=== PATIENT | female | born 1985 | race Caucasian/White ===

== ENCOUNTER 2017-10-09 13:33 | Emergency (ER) | payer MEDICARE, MEDICAID ==
[~2017-10-09] VITALS: Ht 154.9 cm; Wt 130.0 kg
[~2017-10-09 13:33] MED LIST: ALBU18HF2 INH; ALBU8.5H4 IH; BENZ-38 PO; CETI-136 PO; EFF37.5XRC PO; GUAI120015 PO; LURA20TA PO; LURA60TA2 PO; ONDA4TAB12 PO; PANT40TA4 PO; TOPI25TA15 PO
[2017-10-09] MEDS ORDERED: ipratropium/albuterol 3ml nebule NEB ONE (16:20)
[2017-10-09] MEDS ORDERED: predniSONE 20 mg tablet PO ONE (16:40)
[2017-10-09 17:08] LABS: CLARITY,URINE CLOUDY (Clear); COLOR,URINE YELLOW (Yellow); GLUCOSE, URINE NEGATIVE (Neg); KETONES,URINE NEGATIVE (Neg); LEUKOCYTE ESTERASE ,URINE SMALL (Neg); NITRITES, URINE NEGATIVE (Neg); OCCULT BLOOD,URINE TRACE-INTACT (Neg); PROTEIN,URINE NEGATIVE (Neg); UROBILINOGEN,URINE 0.2 E.U/dL (0.2-1.0)
[2017-10-09 17:09] LABS: UA COLLECTION TYPE CLN CATCH MIDSTREAM; URINE HCG NEGATIVE (NEG)
[2017-10-09 17:13] LABS: SQUAMOUS EPITHELIAL CELL,UR MANY /LPF (FEW)
[2017-10-09 17:13] LABS: ALANINE AMINOTRANSFERASE 35 U/L (12-78); ALBUMIN 3.4 G/DL (3.4-5.0); ALBUMIN/GLOBULIN RATIO 0.7 (1.1-1.5); ALKALINE PHOSPHATASE 46 IU/L (46-116); ANION GAP 6 (8-16); ASPARTATE AMINO TRANSFERASE 14 U/L (10-37); BILIRUBIN,TOTAL 0.4 MG/DL (0.1-1.0); BLOOD UREA NITROGEN 8 MG/DL (7-18); BUN/CREATININE RATIO 10.8 (6.6-38.0); CHLORIDE 102 MMOL/L (99-107); CREATININE 0.74 MG/DL (0.40-0.90); GLUCOSE 102 MG/DL (70-104); POTASSIUM 3.7 MMOL/L (3.5-5.1); SODIUM 140 MMOL/L (135-145); TOTAL PROTEIN 8.1 G/DL (6.4-8.2); eGFR > 90 ML/MIN
[2017-10-09 17:15] LABS: BACTERIA,URINE 2+ /HPF (Neg); RBC,URINE 0-2 /HPF (0-2); WBC,URINE 0-4 /HPF (0-4)
[2017-10-09] MEDS ORDERED: PRED20TA PO (18:29)
[2017-10-09] MEDS ORDERED: AZIT-63 PO (18:29)
[2017-10-09 18:45] VITALS: BP 140/85
[2017-10-10] MEDS ORDERED: predniSONE 20 mg tablet PO SCH (08:30)
== END 2017-10-09 18:47 | disposition home or self-care (01) ==
LOC: ER 13:33
DX: J98.01 Acute bronchospasm (principal); J44.9 Chronic obstructive pulmonary disease, unspecified; E78.00 Pure hypercholesterolemia, unspecified; K21.9 Gastro-esophageal reflux disease without esophagitis; G89.29 Other chronic pain; Z88.6 Allergy status to analgesic agent; Z77.22 Contact with and (suspected) exposure to environmental tobacco smoke (acute) (chronic)
CPT/HCPCS: 36415; 80053; 81001; 81025; 87502; 87503; 94640; 94760; 99284; J7512

== ENCOUNTER 2017-11-08 10:26 | Emergency (ER) | payer MEDICARE, MEDICAID ==
[~2017-11-08] VITALS: Ht 154.9 cm; Wt 133.0 kg
[~2017-11-08 10:26] MED LIST changes: +ACET-2615 PO; -BENZ-38 PO
[2017-11-08] MEDS ORDERED: HYDR-565 PO (12:03)
[2017-11-08] MEDS ORDERED: ORPH100T2 PO (12:03)
[2017-11-08 12:14] VITALS: BP 123/94
== END 2017-11-08 12:15 | disposition home or self-care (01) ==
LOC: ER 10:27
DX: M54.6 Pain in thoracic spine (principal); G89.29 Other chronic pain; J44.9 Chronic obstructive pulmonary disease, unspecified; K21.9 Gastro-esophageal reflux disease without esophagitis; E78.00 Pure hypercholesterolemia, unspecified; Z88.6 Allergy status to analgesic agent; Z79.899 Other long term (current) drug therapy; Z98.890 Other specified postprocedural states
CPT/HCPCS: 99283

== ENCOUNTER 2017-11-10 14:12 | Emergency (ER) | payer MEDICARE, MEDICAID ==
[~2017-11-10] VITALS: Ht 154.9 cm; Wt 132.0 kg
[~2017-11-10 14:12] MED LIST changes: -ACET-2615 PO; +HYDR-565 PO; +ORPH100T2 PO
[2017-11-10 16:20] LABS: BASOPHILS # (AUTO) 0.1 X10'3 (0-0.2); BASOPHILS % (AUTO) 0.5 % (0-1); EOSINOPHILS # (AUTO) 0.1 X10'3 (0-0.9); EOSINOPHILS % (AUTO) 1.2 % (0-6); HEMATOCRIT 41.9 % (35.0-45.0); HEMOGLOBIN 14.5 g/dl (12.0-16.0); LYMPHOCYTES # (AUTO) 2.2 X10'3 (1.1-4.8); LYMPHOCYTES % (AUTO) 20.7 % (21-51); MEAN CORPUSCULAR HEMOGLOBIN 29.2 PG (27.0-31.0); MEAN CORPUSCULAR HGB CONC 34.5 % (33.0-36.5); MEAN CORPUSCULAR VOLUME 84.7 FL (78-98); MEAN PLATELET VOLUME 6.8 FL (7.4-10.4); MONOCYTES # (AUTO) 0.7 X10'3 (0-0.9); MONOCYTES % (AUTO) 6.7 % (2-12); NEUTROPHILS # (AUTO) 7.5 X10'3 (1.8-7.7); NEUTROPHILS % (AUTO) 70.9 % (42-75); PLATELET COUNT 354 X10'3 (140-440); RED BLOOD COUNT 4.95 X10'6 (4.20-5.60); WHITE BLOOD COUNT 10.6 X10'3 (4.5-11.0)
[2017-11-10 16:28] LABS: URINE HCG NEGATIVE (NEG)
[2017-11-10 16:32] LABS: CLARITY,URINE Cloudy (Clear); COLOR,URINE Yellow (Yellow); GLUCOSE, URINE Negative (Neg); KETONES,URINE Negative (Neg); LEUKOCYTE ESTERASE ,URINE Small (Neg); NITRITES, URINE Negative (Neg); OCCULT BLOOD,URINE Moderate (Neg); PH,URINE 7.5 (4.8-8.0); PROTEIN,URINE Negative (Neg)
[2017-11-10 16:34] LABS: ALANINE AMINOTRANSFERASE 27 U/L (12-78); ALBUMIN 3.5 G/DL (3.4-5.0); ALBUMIN/GLOBULIN RATIO 0.8 (1.1-1.5); ALKALINE PHOSPHATASE 46 IU/L (46-116); ANION GAP 9 (8-16); ASPARTATE AMINO TRANSFERASE 12 U/L (10-37); BILIRUBIN,TOTAL 0.4 MG/DL (0.1-1.0); BLOOD UREA NITROGEN 10 MG/DL (7-18); BUN/CREATININE RATIO 14.3 (6.6-38.0); CALCIUM 9.1 MG/DL (8.5-10.1); CHLORIDE 105 MMOL/L (99-107); ETHANOL < 0.010 GM/DL (0.0-0.010); GLUCOSE 86 MG/DL (70-104); POTASSIUM 3.5 MMOL/L (3.5-5.1); SODIUM 143 MMOL/L (135-145); TOTAL CARBON DIOXIDE 29.5 MMOL/L (24-32); TOTAL PROTEIN 8.1 G/DL (6.4-8.2); eGFR > 90 ML/MIN
[2017-11-10 16:34] LABS: UA COLLECTION TYPE CLN CATCH MIDSTREAM
[2017-11-10 16:39] LABS: BACTERIA,URINE FEW /HPF (Neg); RBC,URINE 0-2 /HPF (0-2); SQUAMOUS EPITHELIAL CELL,UR MODERATE /LPF (FEW); WBC,URINE 0-4 /HPF (0-4)
[2017-11-10 16:40] LABS: AMORPHOUS URATES 1+
[2017-11-10 16:41] LABS: URINE AMPHETAMINE SCREEN NEGATIVE (Neg); URINE BARBITUATE SCREEN NEGATIVE (Neg); URINE BENZODIAZEPINES SCREEN NEGATIVE (Neg); URINE CANNABINOID SCREEN NEGATIVE (Neg); URINE COCAINE SCREEN NEGATIVE (Neg); URINE METHADONE SCREEN NEGATIVE (Neg); URINE OPIATE SCREEN NEGATIVE (Neg); URINE PHENCYCLIDINE SCREEN NEGATIVE (Neg)
[2017-11-10 19:37] VITALS: BP 152/82
== END 2017-11-10 19:38 | disposition home or self-care (01) ==
LOC: ER 14:12
DX: F31.9 Bipolar disorder, unspecified (principal); F41.9 Anxiety disorder, unspecified; E66.01 Morbid (severe) obesity due to excess calories; I10 Essential (primary) hypertension; G89.29 Other chronic pain; M54.9 Dorsalgia, unspecified; K21.9 Gastro-esophageal reflux disease without esophagitis; J44.9 Chronic obstructive pulmonary disease, unspecified; E78.00 Pure hypercholesterolemia, unspecified; Z88.6 Allergy status to analgesic agent; Z88.8 Allergy status to other drugs, medicaments and biological substances
CPT/HCPCS: 36415; 80053; 80305; 80320; 81001; 81025; 85025; 87088; 99285

== ENCOUNTER 2017-11-10 17:10 | Inpatient (IN) | payer MEDICARE, MEDICAID ==
[~2017-11-10] VITALS: Ht 154.9 cm; Wt 131.3 kg
[2017-11-10] MEDS ORDERED: mag hydrox/Alum hydrox/simeth 30ml oral suspension PO ONE (17:55)
[2017-11-10] MEDS ORDERED: albuterol 2.5 MG/3 ML nebule NEB PRN (18:20)
[2017-11-10 19:00] VITALS: BP 125/83
[2017-11-10] MEDS: acetaminophen 325mg tablet PO PRN (19:12)
[2017-11-10] MEDS: venlafaxine XR 75mg capsule (Q24H) PO SCH (19:12)
[2017-11-10] MEDS ORDERED: topiramate 25mg tablet PO SCH (21:00)
[2017-11-11] MEDS ORDERED: pantoprazole 40mg Tablet.DR PO SCH (07:30)
[2017-11-11] MEDS: lurasidone 20mg tablet PO SCH ×2 (07:30→07:56)
[2017-11-11] MEDS: venlafaxine XR 75mg capsule (Q24H) PO SCH (07:32)
[2017-11-11 07:44] VITALS: BP 118/77
[2017-11-11] MEDS ORDERED: cetirizine 10mg tablet PO SCH (08:00)
[2017-11-11] MEDS ORDERED: ALBUTEROL IH PRN (09:00)
[2017-11-11] MEDS ORDERED: non-formulary drug (Albuterol Sulfate (Ventolin Hfa) 2 PUFFS) INH SCH (09:00)
[2017-11-11] MEDS ORDERED: HYDROcodone/acetaminophen 10/325mg tab PO PRN (09:00)
[2017-11-11] MEDS ORDERED: albuterol 2.5 MG/3 ML nebule NEB PRN (09:35)
[2017-11-11] MEDS ORDERED: cyclobenzaprine 10mg tablet PO PRN (09:35)
[2017-11-11] MEDS: sucralfate 1gm/10ml UD suspension PO SCH ×3 (11:00→21:10)
[2017-11-11 19:26] VITALS: BP 141/80
[2017-11-11] MEDS: topiramate 25mg tablet PO SCH (21:04)
[2017-11-11] MEDS: guaiFENesin ER 600mg tablet PO SCH (21:10)
[2017-11-11] MEDS: lurasidone 60mg tablet PO SCH (21:10)
[2017-11-11] MEDS ORDERED: traZODone 50mg tablet PO PRN (21:15)
[2017-11-12] MEDS ORDERED: lurasidone 20mg tablet PO SCH (07:30)
[2017-11-12 07:35] VITALS: BP 115/76
[2017-11-12] MEDS: venlafaxine XR 37.5mg cap (Q24H) PO SCH (07:46)
[2017-11-12] MEDS: sucralfate 1gm/10ml UD suspension PO SCH ×4 (07:46→20:19)
[2017-11-12] MEDS: guaiFENesin ER 600mg tablet PO SCH ×2 (07:47→20:18)
[2017-11-12] MEDS: pantoprazole 40mg Tablet.DR PO SCH (07:47)
[2017-11-12] MEDS: cetirizine 10mg tablet PO SCH (07:49)
[2017-11-12 20:00] VITALS: BP 140/81
[2017-11-12] MEDS: topiramate 25mg tablet PO SCH (20:20)
[2017-11-12] MEDS: lurasidone 60mg tablet PO SCH (20:20)
[2017-11-12] MEDS: acetaminophen 325mg tablet PO PRN (20:23)
[2017-11-13] MEDS ORDERED: lurasidone 20mg tablet PO SCH (07:30)
[2017-11-13] MEDS: sucralfate 1gm/10ml UD suspension PO SCH ×3 (07:32→16:00)
[2017-11-13] MEDS: guaiFENesin ER 600mg tablet PO SCH (07:33)
[2017-11-13] MEDS: cetirizine 10mg tablet PO SCH (07:33)
[2017-11-13] MEDS: venlafaxine XR 37.5mg cap (Q24H) PO SCH (07:33)
[2017-11-13] MEDS: pantoprazole 40mg Tablet.DR PO SCH (07:33)
[2017-11-13 08:00] VITALS: BP 123/78
[2017-11-13] MEDS ORDERED: LURA20TA PO (10:44)
[2017-11-13] MEDS ORDERED: TRAZ-143 PO (10:44)
== END 2017-11-13 14:45 | disposition home or self-care (01) | DRG 885 ==
LOC: ADULT MH 17:10
PROVIDERS: ADMIT Psychiatry & Neurology Psychiatry; ATTEND Psychiatry & Neurology Psychiatry
DX: F39 Unspecified mood [affective] disorder (principal); R45.851 Suicidal ideations; F32.9 Major depressive disorder, single episode, unspecified; E78.00 Pure hypercholesterolemia, unspecified; F41.9 Anxiety disorder, unspecified; F60.9 Personality disorder, unspecified; G89.29 Other chronic pain; M54.5 Low back pain; J44.9 Chronic obstructive pulmonary disease, unspecified; G47.33 Obstructive sleep apnea (adult) (pediatric); K21.9 Gastro-esophageal reflux disease without esophagitis; Z88.6 Allergy status to analgesic agent; Z79.899 Other long term (current) drug therapy; Z82.49 Family history of ischemic heart disease and other diseases of the circulatory system; Z82.5 Family history of asthma and other chronic lower respiratory diseases; Z81.8 Family history of other mental and behavioral disorders
CPT/HCPCS: 87070; 99285

== ENCOUNTER 2017-11-26 10:29 | Outpatient (CLI) | payer MEDICARE, MEDICAID ==
[~2017-11-26 10:29] MED LIST changes: -ALBU8.5H4 IH; -GUAI120015 PO; -ONDA4TAB12 PO; +TRAZ-143 PO
== END 2017-11-26 23:59 | disposition home or self-care (01) ==
LOC: RAD 10:29
PROVIDERS: ATTEND Family Medicine
DX: R10.30 Lower abdominal pain, unspecified (principal); J45.909 Unspecified asthma, uncomplicated
CPT/HCPCS: 76830; 76856

== ENCOUNTER 2017-12-17 19:17 | Emergency (ER) | payer MEDICARE, MEDICAID ==
[~2017-12-17] VITALS: Ht 154.9 cm; Wt 134.0 kg
[~2017-12-17 19:17] MED LIST changes: -HYDR-565 PO
[2017-12-17 20:30] LABS: URINE HCG NEGATIVE (NEG)
[2017-12-17 20:35] LABS: COLOR,URINE YELLOW (Yellow); GLUCOSE, URINE NEGATIVE (Neg); KETONES,URINE NEGATIVE (Neg); LEUKOCYTE ESTERASE ,URINE NEGATIVE (Neg); NITRITES, URINE NEGATIVE (Neg); OCCULT BLOOD,URINE LARGE (Neg); PROTEIN,URINE TRACE mg/dl (Neg); UROBILINOGEN,URINE 0.2 E.U/dL (0.2-1.0)
[2017-12-17 20:42] LABS: UA COLLECTION TYPE VOIDED
[2017-12-17 20:43] LABS: CLARITY,URINE SLIGHTLY CLOUDY (Clear)
[2017-12-17 20:44] LABS: BACTERIA,URINE FEW /HPF (Neg); RBC,URINE 0-2 /HPF (0-2); SQUAMOUS EPITHELIAL CELL,UR MODERATE /LPF (FEW); WBC,URINE 0-4 /HPF (0-4)
[2017-12-17] MEDS ORDERED: ondansetron 4mg rapidly disintigrating tab PO ONE (20:50)
[2017-12-17 21:17] LABS: URINE AMPHETAMINE SCREEN NEGATIVE (Neg); URINE BARBITUATE SCREEN NEGATIVE (Neg); URINE BENZODIAZEPINES SCREEN NEGATIVE (Neg); URINE CANNABINOID SCREEN NEGATIVE (Neg); URINE COCAINE SCREEN NEGATIVE (Neg); URINE METHADONE SCREEN NEGATIVE (Neg); URINE OPIATE SCREEN NEGATIVE (Neg); URINE PHENCYCLIDINE SCREEN NEGATIVE (Neg)
[2017-12-17] MEDS ORDERED: ONDA4TAB9 SL (21:46)
[2017-12-17 21:57] VITALS: BP 145/89
== END 2017-12-17 22:02 | disposition home or self-care (01) ==
LOC: ER 19:17
DX: R10.84 Generalized abdominal pain (principal); E78.00 Pure hypercholesterolemia, unspecified; J44.9 Chronic obstructive pulmonary disease, unspecified; K21.9 Gastro-esophageal reflux disease without esophagitis; G89.29 Other chronic pain; Z79.899 Other long term (current) drug therapy; Z88.8 Allergy status to other drugs, medicaments and biological substances
CPT/HCPCS: 80305; 81001; 81025; 99284

== ENCOUNTER → 2018-01-14 | Emergency (ER) | payer MEDICARE, MEDICAID ==
[~2018-01-14] VITALS: Ht 154.9 cm; Wt 138.5 kg
[~2018-01-14] MED LIST changes: +LIDOcaine Viscous 15ml cup PO ONE; +diphenhydrAMINE 50 mg/ml inj IM ONE; +mag hydrox/Alum hydrox/simeth 30ml oral suspension PO ONE; +ondansetron 4mg rapidly disintigrating tab PO ONE
[2018-01-14 21:25] LABS: URINE HCG NEGATIVE (NEG)
[2018-01-14 21:26] LABS: BASOPHILS # (AUTO) 0.1 X10'3 (0-0.2); BASOPHILS % (AUTO) 0.6 % (0-1); EOSINOPHILS # (AUTO) 0.3 X10'3 (0-0.9); EOSINOPHILS % (AUTO) 2.3 % (0-6); HEMATOCRIT 42.8 % (35.0-45.0); HEMOGLOBIN 14.8 g/dl (12.0-16.0); LYMPHOCYTES # (AUTO) 2.5 X10'3 (1.1-4.8); LYMPHOCYTES % (AUTO) 18.3 % (21-51); MEAN CORPUSCULAR HGB CONC 34.5 % (33.0-36.5); MEAN CORPUSCULAR VOLUME 84.1 FL (78-98); MEAN PLATELET VOLUME 7.1 FL (7.4-10.4); MONOCYTES % (AUTO) 6.9 % (2-12); NEUTROPHILS % (AUTO) 71.9 % (42-75); PLATELET COUNT 373 X10'3 (140-440); RED BLOOD COUNT 5.09 X10'6 (4.20-5.60); WHITE BLOOD COUNT 13.8 X10'3 (4.5-11.0)
[2018-01-14 21:29] LABS: INR 0.9 INR; PROTHROMBIN TIME 9.6 SECONDS (9.0-12.0)
[2018-01-14 21:39] LABS: ALANINE AMINOTRANSFERASE 29 U/L (12-78); ALBUMIN 3.6 G/DL (3.4-5.0); ALBUMIN/GLOBULIN RATIO 0.8 (1.1-1.5); ALKALINE PHOSPHATASE 49 IU/L (46-116); AMYLASE 25 U/L (25-115); ANION GAP 10 (8-16); ASPARTATE AMINO TRANSFERASE 17 U/L (10-37); BILIRUBIN,TOTAL 0.3 MG/DL (0.1-1.0); BLOOD UREA NITROGEN 15 MG/DL (7-18); CALCIUM 9.2 MG/DL (8.5-10.1); CHLORIDE 101 MMOL/L (99-107); CREATININE 0.94 MG/DL (0.40-0.90); LIPASE 107 U/L (73-393); SODIUM 140 MMOL/L (135-145); TOTAL CARBON DIOXIDE 28.7 MMOL/L (24-32); TOTAL PROTEIN 8.4 G/DL (6.4-8.2); eGFR 69 ML/MIN
[2018-01-14 21:40] LABS: GLUCOSE 121 MG/DL (70-104); POTASSIUM 4.1 MMOL/L (3.5-5.1)
[2018-01-14 21:44] LABS: CLARITY,URINE Cloudy (Clear); COLOR,URINE Yellow (Yellow); GLUCOSE, URINE Negative (Neg); KETONES,URINE Negative (Neg); LEUKOCYTE ESTERASE ,URINE Negative (Neg); NITRITES, URINE Negative (Neg); OCCULT BLOOD,URINE Trace (Neg); PH,URINE 7.5 (4.8-8.0); PROTEIN,URINE Negative (Neg)
[2018-01-14 21:57] LABS: UA COLLECTION TYPE CLN CATCH MIDSTREAM
[2018-01-14 22:05] LABS: BACTERIA,URINE 1+ /HPF (Neg); RBC,URINE NONE SEEN /HPF (0-2); SQUAMOUS EPITHELIAL CELL,UR MANY /LPF (FEW); WBC,URINE 0-4 /HPF (0-4)
[2018-01-14 22:06] LABS: MUCUS STRANDS MODERATE /LPF (Neg)
[2018-01-14 23:53] VITALS: BP 168/98
== END | disposition home or self-care (01) ==
LOC: ER 20:30
DX: R10.9 Unspecified abdominal pain (principal); R51 Headache; E78.00 Pure hypercholesterolemia, unspecified; J44.9 Chronic obstructive pulmonary disease, unspecified; K21.9 Gastro-esophageal reflux disease without esophagitis; G89.29 Other chronic pain; Z88.8 Allergy status to other drugs, medicaments and biological substances; Z79.899 Other long term (current) drug therapy
CPT/HCPCS: 36415; 80053; 81001; 81025; 82150; 83690; 85025; 85610; 96372; 99284; J1200

== ENCOUNTER 2018-03-08 07:25 | Emergency (ER) | payer MEDICARE, MEDICAID ==
[~2018-03-08] VITALS: Ht 154.9 cm; Wt 136.0 kg
[~2018-03-08 07:25] MED LIST changes: +AMOX-101 PO; -LIDOcaine Viscous 15ml cup PO ONE; -diphenhydrAMINE 50 mg/ml inj IM ONE; -mag hydrox/Alum hydrox/simeth 30ml oral suspension PO ONE; -ondansetron 4mg rapidly disintigrating tab PO ONE
[2018-03-08] MEDS ORDERED: ketorolac trometh. 30mg/ml inj. IM ONE (08:25)
[2018-03-08] MEDS ORDERED: CYCL-1 PO (08:26)
[2018-03-08 08:43] VITALS: BP 101/46
== END 2018-03-08 08:50 | disposition home or self-care (01) ==
LOC: ER 07:25
DX: S30.0XXA Contusion of lower back and pelvis, initial encounter (principal); E78.00 Pure hypercholesterolemia, unspecified; K21.9 Gastro-esophageal reflux disease without esophagitis; J44.9 Chronic obstructive pulmonary disease, unspecified; Z88.6 Allergy status to analgesic agent; Z88.0 Allergy status to penicillin; Z88.8 Allergy status to other drugs, medicaments and biological substances; Z79.899 Other long term (current) drug therapy; W01.0XXA Fall on same level from slipping, tripping and stumbling without subsequent striking against object, initial encounter; Y93.89 Activity, other specified; Y92.89 Other specified places as the place of occurrence of the external cause; Y99.8 Other external cause status
CPT/HCPCS: 72100; 96372; 99284; J1885

== ENCOUNTER 2018-03-20 13:34 | Emergency (ER) | payer MEDICARE, MEDICAID ==
[~2018-03-20] VITALS: Ht 154.9 cm; Wt 135.9 kg
[~2018-03-20 13:34] MED LIST changes: +CYCL-1 PO
[2018-03-20] MEDS ORDERED: HYDR-569 PO (14:44)
[2018-03-20 14:52] VITALS: BP 149/90
[2018-03-21] MEDS ORDERED: SUCR1TAB (13:56)
[2018-03-21] MEDS ORDERED: BUDE10.2 (13:56)
[2018-03-21] MEDS ORDERED: LAMO25TA (13:56)
[2018-03-21] MEDS ORDERED: VENL150C58 (13:56)
[2018-03-21] MEDS ORDERED: ATOR20TA66 (13:56)
[2018-03-21] MEDS ORDERED: LORA0.5T (13:56)
[2018-03-21] MEDS ORDERED: LURA80TA3 (13:56)
[2018-03-21] MEDS ORDERED: DESV50TA PO (14:12)
[2018-03-21] MEDS ORDERED: HYDR-3965 PO (14:12)
== END 2018-03-20 14:53 | disposition home or self-care (01) ==
LOC: ER 13:35
DX: S80.01XA Contusion of right knee, initial encounter (principal); E78.00 Pure hypercholesterolemia, unspecified; J44.9 Chronic obstructive pulmonary disease, unspecified; K21.9 Gastro-esophageal reflux disease without esophagitis; G89.29 Other chronic pain; Z98.890 Other specified postprocedural states; Z88.6 Allergy status to analgesic agent; Z79.899 Other long term (current) drug therapy; W18.39XA Other fall on same level, initial encounter; Y93.89 Activity, other specified; Y92.89 Other specified places as the place of occurrence of the external cause; Y99.8 Other external cause status
CPT/HCPCS: 73564; 99284

== ENCOUNTER 2018-03-21 12:07 | Emergency (ER) | payer MEDICARE, MEDICAID ==
[~2018-03-21] VITALS: Ht 545.9 cm; Wt 135.6 kg
[~2018-03-21 12:07] MED LIST changes: +HYDR-569 PO
[2018-03-21 13:00] LABS: BASOPHILS % (AUTO) 0.4 % (0-1); EOSINOPHILS # (AUTO) 0.2 X10'3 (0-0.9); EOSINOPHILS % (AUTO) 1.9 % (0-6); HEMATOCRIT 41.2 % (35.0-45.0); HEMOGLOBIN 14.2 g/dl (12.0-16.0); LYMPHOCYTES % (AUTO) 20.3 % (21-51); MEAN CORPUSCULAR HEMOGLOBIN 28.7 PG (27.0-31.0); MEAN CORPUSCULAR HGB CONC 34.5 % (33.0-36.5); MEAN CORPUSCULAR VOLUME 83.2 FL (78-98); MONOCYTES # (AUTO) 0.6 X10'3 (0-0.9); MONOCYTES % (AUTO) 6.3 % (2-12); NEUTROPHILS # (AUTO) 6.9 X10'3 (1.8-7.7); NEUTROPHILS % (AUTO) 71.1 % (42-75); PLATELET COUNT 344 X10'3 (140-440); RED BLOOD COUNT 4.95 X10'6 (4.20-5.60); RED CELL DISTRIBUTION WIDTH 14.4 % (11.5-14.5); WHITE BLOOD COUNT 9.8 X10'3 (4.5-11.0)
[2018-03-21 13:15] LABS: ALANINE AMINOTRANSFERASE 33 U/L (12-78); ALBUMIN 3.5 G/DL (3.4-5.0); ALBUMIN/GLOBULIN RATIO 0.8 (1.1-1.5); ALKALINE PHOSPHATASE 53 IU/L (46-116); ANION GAP 6 (8-16); ASPARTATE AMINO TRANSFERASE 21 U/L (10-37); BILIRUBIN,TOTAL 0.5 MG/DL (0.1-1.0); BLOOD UREA NITROGEN 6 MG/DL (7-18); BUN/CREATININE RATIO 7.2 (6.6-38.0); CALCIUM 9.4 MG/DL (8.5-10.1); CHLORIDE 103 MMOL/L (99-107); CREATININE 0.83 MG/DL (0.40-0.90); GLUCOSE 114 MG/DL (70-104); POTASSIUM 3.9 MMOL/L (3.5-5.1); SODIUM 140 MMOL/L (135-145); TOTAL CARBON DIOXIDE 31.4 MMOL/L (24-32); TOTAL PROTEIN 7.9 G/DL (6.4-8.2); eGFR 80 ML/MIN
[2018-03-21 13:25] LABS: ETHANOL < 0.010 GM/DL (0.0-0.010)
[2018-03-21 13:34] LABS: URINE HCG NEGATIVE (NEG)
[2018-03-21 13:46] LABS: URINE AMPHETAMINE SCREEN NEGATIVE (Neg); URINE BARBITUATE SCREEN NEGATIVE (Neg); URINE BENZODIAZEPINES SCREEN NEGATIVE (Neg); URINE CANNABINOID SCREEN NEGATIVE (Neg); URINE COCAINE SCREEN NEGATIVE (Neg); URINE METHADONE SCREEN NEGATIVE (Neg); URINE OPIATE SCREEN NEGATIVE (Neg); URINE PHENCYCLIDINE SCREEN NEGATIVE (Neg)
[2018-03-21] MEDS ORDERED: VENL150C58 (13:56)
[2018-03-21] MEDS ORDERED: LORA0.5T (13:56)
[2018-03-21] MEDS ORDERED: ATOR20TA66 (13:56)
[2018-03-21] MEDS ORDERED: LURA80TA3 (13:56)
[2018-03-21] MEDS ORDERED: LAMO25TA (13:56)
[2018-03-21] MEDS ORDERED: BUDE10.2 (13:56)
[2018-03-21] MEDS ORDERED: SUCR1TAB (13:56)
[2018-03-21] MEDS ORDERED: HYDR-3965 PO (14:12)
[2018-03-21] MEDS ORDERED: DESV50TA PO (14:12)
[2018-03-21] MEDS ORDERED: HYDROcodone/acetaminophen 5mg/325mg tablet PO PRN (18:25)
[2018-03-21] MEDS ORDERED: LORazepam 0.5 MG tablet PO PRN (18:30)
[2018-03-21] MEDS ORDERED: albuterol 2.5 MG/3 ML nebule NEB SCH (19:00)
[2018-03-21] MEDS ORDERED: venlafaxine 25mg tablet PO SCH (20:00)
[2018-03-21] MEDS ORDERED: budesonide 0.5mg/2ml UD nebule IH SCH (21:00)
[2018-03-21] MEDS ORDERED: topiramate 25mg tablet PO SCH (21:00)
[2018-03-21] MEDS ORDERED: lamoTRIgine 25mg tablet PO SCH (21:00)
[2018-03-21] MEDS ORDERED: sucralfate 1 gm tablet PO SCH (21:00)
[2018-03-21 22:34] VITALS: BP 108/69
[2018-03-22] MEDS ORDERED: atorvastatin 20mg tablet PO SCH (08:00)
[2018-03-22] MEDS ORDERED: pantoprazole 40mg Tablet.DR PO SCH (08:00)
[2018-03-22] MEDS ORDERED: cetirizine 10mg tablet PO SCH (08:00)
[2018-03-22] MEDS ORDERED: lurasidone 20mg tablet PO SCH (17:30)
[2018-03-26] MEDS ORDERED: PALI6TAB6 PO (12:57)
[2018-03-26] MEDS ORDERED: TRAZ-143 PO (12:57)
[2018-03-26] MEDS ORDERED: LURA60TA2 PO (12:57)
[2018-03-26] MEDS ORDERED: VENL75CA61 PO (12:57)
== END 2018-03-21 22:12 ==
LOC: ER 12:07
DX: R45.851 Suicidal ideations (principal); R07.9 Chest pain, unspecified; F32.9 Major depressive disorder, single episode, unspecified; F41.9 Anxiety disorder, unspecified; J44.9 Chronic obstructive pulmonary disease, unspecified; E78.00 Pure hypercholesterolemia, unspecified; K21.9 Gastro-esophageal reflux disease without esophagitis; G89.29 Other chronic pain; Z88.1 Allergy status to other antibiotic agents; Z88.6 Allergy status to analgesic agent; Z79.899 Other long term (current) drug therapy
CPT/HCPCS: 36415; 80053; 80305; 80320; 81025; 84443; 85025; 93005; 94640; 94760; 99285; J7626

== ENCOUNTER 2018-04-22 14:27 | Emergency (ER) | payer MEDICARE, MEDICAID ==
[~2018-04-22] VITALS: Ht 154.9 cm; Wt 140.0 kg
[~2018-04-22 14:27] MED LIST changes: -AMOX-101 PO; +ATOR20TA66; +BUDE10.2; -CYCL-1 PO; -EFF37.5XRC PO; +HYDR-3965 PO; -HYDR-569 PO; +LAMO25TA; +LORA0.5T; -LURA20TA PO; -ORPH100T2 PO; +PALI6TAB6 PO; +SUCR1TAB; -TOPI25TA15 PO; +VENL75CA61 PO
[2018-04-22 15:00] LABS: BASOPHILS % (AUTO) 0.3 % (0-1); EOSINOPHILS # (AUTO) 0.2 X10'3 (0-0.9); EOSINOPHILS % (AUTO) 1.6 % (0-6); HEMOGLOBIN 14.5 g/dl (12.0-16.0); LYMPHOCYTES # (AUTO) 2.3 X10'3 (1.1-4.8); LYMPHOCYTES % (AUTO) 18.5 % (21-51); MEAN CORPUSCULAR HGB CONC 34.5 % (33.0-36.5); MEAN CORPUSCULAR VOLUME 84.2 FL (78-98); MEAN PLATELET VOLUME 7.2 FL (7.4-10.4); MONOCYTES # (AUTO) 0.8 X10'3 (0-0.9); MONOCYTES % (AUTO) 6.2 % (2-12); NEUTROPHILS % (AUTO) 73.4 % (42-75); PLATELET COUNT 335 X10'3 (140-440); RED BLOOD COUNT 4.98 X10'6 (4.20-5.60); RED CELL DISTRIBUTION WIDTH 14.4 % (11.5-14.5); WHITE BLOOD COUNT 12.2 X10'3 (4.5-11.0)
[2018-04-22 15:05] LABS: URINE HCG NEGATIVE (NEG)
[2018-04-22 15:06] VITALS: BP 152/89
[2018-04-22 15:09] LABS: PROTHROMBIN TIME 9.9 SECONDS (9.0-12.0)
[2018-04-22 15:10] LABS: CLARITY,URINE CLEAR (Clear); COLOR,URINE YELLOW (Yellow); GLUCOSE, URINE 100 mg/dl (Neg); KETONES,URINE NEGATIVE (Neg); LEUKOCYTE ESTERASE ,URINE NEGATIVE (Neg); NITRITES, URINE NEGATIVE (Neg); OCCULT BLOOD,URINE SMALL (Neg); PROTEIN,URINE TRACE mg/dl (Neg); UROBILINOGEN,URINE 0.2 E.U/dL (0.2-1.0)
[2018-04-22 15:11] LABS: UA COLLECTION TYPE CLN CATCH MIDSTREAM
[2018-04-22 15:14] LABS: ALANINE AMINOTRANSFERASE 30 U/L (12-78); ALBUMIN 3.5 G/DL (3.4-5.0); ALBUMIN/GLOBULIN RATIO 0.7 (1.1-1.5); ALKALINE PHOSPHATASE 58 IU/L (46-116); ANION GAP 3 (8-16); ASPARTATE AMINO TRANSFERASE 15 U/L (10-37); BILIRUBIN,TOTAL 0.3 MG/DL (0.1-1.0); BLOOD UREA NITROGEN 7 MG/DL (7-18); BUN/CREATININE RATIO 8.5 (6.6-38.0); CALCIUM 9.3 MG/DL (8.5-10.1); CHLORIDE 99 MMOL/L (99-107); CREATININE 0.82 MG/DL (0.40-0.90); GLUCOSE 207 MG/DL (70-104); POTASSIUM 4.1 MMOL/L (3.5-5.1); SODIUM 134 MMOL/L (135-145); TOTAL CARBON DIOXIDE 31.6 MMOL/L (24-32); TOTAL PROTEIN 8.2 G/DL (6.4-8.2); eGFR 81 ML/MIN
[2018-04-22 15:19] LABS: BACTERIA,URINE FEW /HPF (Neg); RBC,URINE 0-2 /HPF (0-2); SQUAMOUS EPITHELIAL CELL,UR MODERATE /LPF (FEW); WBC,URINE 0-4 /HPF (0-4)
[2018-04-22] MEDS ORDERED: HYDROcodone/acetaminophen 10/325mg tab PO ONE (15:20)
[2018-04-22] MEDS ORDERED: dicyclomine 10 MG capsule PO ONE (15:20)
== END 2018-04-22 16:35 | disposition home or self-care (01) ==
LOC: ER 14:27
DX: R10.31 Right lower quadrant pain (principal); R81 Glycosuria; R73.9 Hyperglycemia, unspecified; E78.00 Pure hypercholesterolemia, unspecified; J44.9 Chronic obstructive pulmonary disease, unspecified; K21.9 Gastro-esophageal reflux disease without esophagitis; G89.29 Other chronic pain; Z98.890 Other specified postprocedural states; Z88.6 Allergy status to analgesic agent; Z79.899 Other long term (current) drug therapy
CPT/HCPCS: 36415; 80053; 81001; 81025; 85025; 85610; 99284

== ENCOUNTER 2018-04-26 11:30 | Emergency (ER) | payer MEDICARE, MEDICAID ==
[~2018-04-26] VITALS: Ht 154.9 cm; Wt 141.1 kg
[2018-04-26 14:13] LABS: BASOPHILS % (AUTO) 0.3 % (0-1); EOSINOPHILS # (AUTO) 0.2 X10'3 (0-0.9); EOSINOPHILS % (AUTO) 1.8 % (0-6); LYMPHOCYTES # (AUTO) 2.4 X10'3 (1.1-4.8); LYMPHOCYTES % (AUTO) 21.3 % (21-51); MEAN CORPUSCULAR HEMOGLOBIN 28.4 PG (27.0-31.0); MEAN CORPUSCULAR HGB CONC 34.1 % (33.0-36.5); MEAN CORPUSCULAR VOLUME 83.4 FL (78-98); MEAN PLATELET VOLUME 6.8 FL (7.4-10.4); MONOCYTES # (AUTO) 0.7 X10'3 (0-0.9); MONOCYTES % (AUTO) 6.6 % (2-12); NEUTROPHILS # (AUTO) 7.8 X10'3 (1.8-7.7); PLATELET COUNT 301 X10'3 (140-440); RED BLOOD COUNT 4.91 X10'6 (4.20-5.60); RED CELL DISTRIBUTION WIDTH 14.7 % (11.5-14.5); WHITE BLOOD COUNT 11.1 X10'3 (4.5-11.0)
[2018-04-26 14:28] LABS: ALANINE AMINOTRANSFERASE 42 U/L (12-78); ALBUMIN 3.3 G/DL (3.4-5.0); ALBUMIN/GLOBULIN RATIO 0.8 (1.1-1.5); ALKALINE PHOSPHATASE 50 IU/L (46-116); ANION GAP 5 (8-16); ASPARTATE AMINO TRANSFERASE 15 U/L (10-37); BILIRUBIN,TOTAL 0.4 MG/DL (0.1-1.0); BLOOD UREA NITROGEN 7 MG/DL (7-18); BUN/CREATININE RATIO 9.2 (6.6-38.0); CALCIUM 8.4 MG/DL (8.5-10.1); CHLORIDE 102 MMOL/L (99-107); CREATININE 0.76 MG/DL (0.40-0.90); GLUCOSE 93 MG/DL (70-104); POTASSIUM 4.1 MMOL/L (3.5-5.1); SODIUM 138 MMOL/L (135-145); TOTAL CARBON DIOXIDE 31.1 MMOL/L (24-32); TOTAL PROTEIN 7.6 G/DL (6.4-8.2); eGFR 88 ML/MIN
[2018-04-26 15:35] VITALS: BP 124/78
== END 2018-04-26 16:05 | disposition home or self-care (01) ==
LOC: ER 11:31
DX: R42 Dizziness and giddiness (principal); R11.0 Nausea; R19.7 Diarrhea, unspecified; E78.00 Pure hypercholesterolemia, unspecified; J44.9 Chronic obstructive pulmonary disease, unspecified; K21.9 Gastro-esophageal reflux disease without esophagitis; E11.9 Type 2 diabetes mellitus without complications; G89.29 Other chronic pain; Z98.890 Other specified postprocedural states; Z79.82 Long term (current) use of aspirin; Z88.8 Allergy status to other drugs, medicaments and biological substances; Z79.899 Other long term (current) drug therapy
CPT/HCPCS: 36415; 80053; 82948; 85025; 99284; J7030

== ENCOUNTER 2018-06-05 11:34 | Emergency (ER) | payer MEDICARE, MEDICAID ==
[~2018-06-05] VITALS: Ht 154.9 cm; Wt 141.8 kg
[~2018-06-05 11:34] MED LIST changes: -TRAZ-143 PO; +TRAZ-218 PO
[2018-06-05 11:47] VITALS: BP 133/89
[2018-06-05] MEDS ORDERED: ketorolac trometh inj. 60 MG/2 ML VIAL IM ONE (12:45)
[2018-06-05] MEDS ORDERED: proCHLORperazine 10 MG/2 ml inj IM ONE (12:45)
[2018-06-05] MEDS ORDERED: diphenhydrAMINE 25mg capsule PO ONE (12:45)
== END 2018-06-05 15:06 | disposition home or self-care (01) ==
LOC: ER 11:34
DX: G43.909 Migraine, unspecified, not intractable, without status migrainosus (principal); M54.2 Cervicalgia; E78.00 Pure hypercholesterolemia, unspecified; J44.9 Chronic obstructive pulmonary disease, unspecified; K21.9 Gastro-esophageal reflux disease without esophagitis; E11.9 Type 2 diabetes mellitus without complications; G89.29 Other chronic pain; Z88.6 Allergy status to analgesic agent; Z79.899 Other long term (current) drug therapy
CPT/HCPCS: 96372; 99284; J0780; J1885; J7030; Q0163

== ENCOUNTER 2018-06-11 15:14 | Emergency (ER) | payer MEDICARE, MEDICAID ==
[~2018-06-11] VITALS: Ht 154.9 cm; Wt 137.4 kg
[2018-06-11 15:19] VITALS: BP 142/84
[2018-06-11] MEDS ORDERED: ketorolac trometh inj. 60 MG/2 ML VIAL IM ONE (15:25)
[2018-06-11] MEDS ORDERED: diphenhydrAMINE 50 mg/ml inj IM ONE (15:25)
[2018-06-11] MEDS ORDERED: acetaminophen w/codeine (30MG) #3 tablet PO ONE (16:00)
== END 2018-06-11 16:18 | disposition home or self-care (01) ==
LOC: ER 15:14
DX: R51 Headache (principal); E78.00 Pure hypercholesterolemia, unspecified; J44.9 Chronic obstructive pulmonary disease, unspecified; K21.9 Gastro-esophageal reflux disease without esophagitis; E11.9 Type 2 diabetes mellitus without complications; G89.29 Other chronic pain; Z98.890 Other specified postprocedural states; Z88.6 Allergy status to analgesic agent; Z79.899 Other long term (current) drug therapy
CPT/HCPCS: 96372; 99284; J1200; J1885

== ENCOUNTER 2018-06-24 13:27 | Emergency (ER) | payer MEDICARE, MEDICAID ==
[~2018-06-24] VITALS: Ht 154.9 cm; Wt 137.0 kg
[2018-06-24 14:44] VITALS: BP 151/79
[2018-06-24] MEDS ORDERED: GUAI10SY2 PO (14:57)
[2018-06-24] MEDS ORDERED: ALBU18HF2 INH (14:59)
== END 2018-06-24 15:15 | disposition home or self-care (01) ==
LOC: ER 13:27
DX: R05 Cough (principal); R09.3 Abnormal sputum; R11.10 Vomiting, unspecified; E78.00 Pure hypercholesterolemia, unspecified; J44.9 Chronic obstructive pulmonary disease, unspecified; K21.9 Gastro-esophageal reflux disease without esophagitis; E11.9 Type 2 diabetes mellitus without complications; G89.29 Other chronic pain; M54.9 Dorsalgia, unspecified; Z88.6 Allergy status to analgesic agent
CPT/HCPCS: 99284

== ENCOUNTER 2018-07-03 10:55 | Emergency (ER) | payer MEDICARE, MEDICAID ==
[~2018-07-03] VITALS: Ht 154.9 cm; Wt 133.0 kg
[~2018-07-03 10:55] MED LIST changes: +GUAI10SY2 PO
[2018-07-03 11:44] LABS: BASOPHILS % (AUTO) 0.4 % (0-1); EOSINOPHILS # (AUTO) 0.1 X10'3 (0-0.9); EOSINOPHILS % (AUTO) 1.6 % (0-6); HEMATOCRIT 46.2 % (35.0-45.0); HEMOGLOBIN 15.3 g/dl (12.0-16.0); LYMPHOCYTES # (AUTO) 1.7 X10'3 (1.1-4.8); LYMPHOCYTES % (AUTO) 19.3 % (21-51); MEAN CORPUSCULAR HEMOGLOBIN 28.2 PG (27.0-31.0); MEAN CORPUSCULAR HGB CONC 33.1 % (33.0-36.5); MEAN PLATELET VOLUME 7.3 FL (7.4-10.4); MONOCYTES # (AUTO) 0.6 X10'3 (0-0.9); MONOCYTES % (AUTO) 6.5 % (2-12); NEUTROPHILS # (AUTO) 6.5 X10'3 (1.8-7.7); NEUTROPHILS % (AUTO) 72.2 % (42-75); PLATELET COUNT 327 X10'3 (140-440); RED BLOOD COUNT 5.44 X10'6 (4.20-5.60); RED CELL DISTRIBUTION WIDTH 14.1 % (11.5-14.5)
[2018-07-03 11:58] LABS: ALANINE AMINOTRANSFERASE 57 U/L (12-78); ALBUMIN 3.7 G/DL (3.4-5.0); ALBUMIN/GLOBULIN RATIO 0.8 (1.1-1.5); ALKALINE PHOSPHATASE 58 IU/L (46-116); ANION GAP 10 (8-16); ASPARTATE AMINO TRANSFERASE 30 U/L (10-37); BILIRUBIN,TOTAL 0.6 MG/DL (0.1-1.0); BLOOD UREA NITROGEN 13 MG/DL (7-18); BUN/CREATININE RATIO 15.3 (6.6-38.0); CALCIUM 9.3 MG/DL (8.5-10.1); CHLORIDE 104 MMOL/L (99-107); CREATININE 0.85 MG/DL (0.40-0.90); ETHANOL < 0.010 GM/DL (0.0-0.010); GLUCOSE 101 MG/DL (70-104); POTASSIUM 4.1 MMOL/L (3.5-5.1); SODIUM 142 MMOL/L (135-145); TOTAL CARBON DIOXIDE 28.2 MMOL/L (24-32); TOTAL PROTEIN 8.4 G/DL (6.4-8.2); eGFR 78 ML/MIN
[2018-07-03 13:38] LABS: CLARITY,URINE CLEAR (Clear); COLOR,URINE RED (Yellow); GLUCOSE, URINE NEGATIVE (Neg); KETONES,URINE NEGATIVE (Neg); LEUKOCYTE ESTERASE ,URINE TRACE (Neg); NITRITES, URINE NEGATIVE (Neg); OCCULT BLOOD,URINE LARGE (Neg); PROTEIN,URINE 100 mg/dl (Neg)
[2018-07-03 13:41] LABS: URINE HCG NEGATIVE (NEG)
[2018-07-03 13:52] LABS: URINE AMPHETAMINE SCREEN NEGATIVE (Neg); URINE BARBITUATE SCREEN NEGATIVE (Neg); URINE BENZODIAZEPINES SCREEN NEGATIVE (Neg); URINE CANNABINOID SCREEN NEGATIVE (Neg); URINE COCAINE SCREEN NEGATIVE (Neg); URINE METHADONE SCREEN NEGATIVE (Neg); URINE OPIATE SCREEN NEGATIVE (Neg); URINE PHENCYCLIDINE SCREEN NEGATIVE (Neg)
[2018-07-03 13:55] LABS: UA COLLECTION TYPE CLN CATCH MIDSTREAM
[2018-07-03 13:57] LABS: SQUAMOUS EPITHELIAL CELL,UR MANY /LPF (FEW)
[2018-07-03 13:58] LABS: BACTERIA,URINE 1+ /HPF (Neg); RBC,URINE TNTC /HPF (0-2); TRIPLE PHOSPHATE CRYST 1+ /HPF (NEGATIVE)
[2018-07-03] MEDS ORDERED: acetaminophen 325mg tablet PO STA (20:57)
[2018-07-03 22:14] VITALS: BP 120/66
== END 2018-07-03 22:20 ==
LOC: ER 10:55
DX: R45.851 Suicidal ideations (principal); F32.9 Major depressive disorder, single episode, unspecified; E78.00 Pure hypercholesterolemia, unspecified; J44.9 Chronic obstructive pulmonary disease, unspecified; K21.9 Gastro-esophageal reflux disease without esophagitis; E11.9 Type 2 diabetes mellitus without complications; G89.29 Other chronic pain; F41.9 Anxiety disorder, unspecified; Z88.6 Allergy status to analgesic agent; Z79.899 Other long term (current) drug therapy
CPT/HCPCS: 36415; 80053; 80305; 80320; 81001; 81025; 85025; 99285

== ENCOUNTER 2018-08-07 23:17 | Emergency (ER) | payer MEDICARE, MEDICAID ==
[~2018-08-07] VITALS: Ht 154.9 cm; Wt 133.2 kg
[~2018-08-07 23:17] MED LIST changes: -GUAI10SY2 PO
[2018-08-07 23:59] LABS: BASOPHILS % (AUTO) 0.2 % (0-1); EOSINOPHILS # (AUTO) 0.2 X10'3 (0-0.9); EOSINOPHILS % (AUTO) 1.8 % (0-6); HEMATOCRIT 44.6 % (35.0-45.0); HEMOGLOBIN 14.7 g/dl (12.0-16.0); LYMPHOCYTES # (AUTO) 2.8 X10'3 (1.1-4.8); LYMPHOCYTES % (AUTO) 23.6 % (21-51); MEAN CORPUSCULAR HEMOGLOBIN 28.1 PG (27.0-31.0); MEAN CORPUSCULAR HGB CONC 32.9 % (33.0-36.5); MEAN CORPUSCULAR VOLUME 85.3 FL (78-98); MEAN PLATELET VOLUME 7.3 FL (7.4-10.4); MONOCYTES # (AUTO) 0.9 X10'3 (0-0.9); MONOCYTES % (AUTO) 7.8 % (2-12); NEUTROPHILS % (AUTO) 66.6 % (42-75); PLATELET COUNT 328 X10'3 (140-440); RED BLOOD COUNT 5.24 X10'6 (4.20-5.60)
[2018-08-08 00:11] LABS: URINE HCG NEGATIVE (NEG)
[2018-08-08 00:14] LABS: ALANINE AMINOTRANSFERASE 40 U/L (12-78); ALBUMIN 3.6 G/DL (3.4-5.0); ALBUMIN/GLOBULIN RATIO 0.8 (1.1-1.5); ALKALINE PHOSPHATASE 63 IU/L (46-116); ANION GAP 9 (8-16); ASPARTATE AMINO TRANSFERASE 14 U/L (10-37); BILIRUBIN,TOTAL 0.3 MG/DL (0.1-1.0); BLOOD UREA NITROGEN 8 MG/DL (7-18); BUN/CREATININE RATIO 8.3 (6.6-38.0); CALCIUM 8.9 MG/DL (8.5-10.1); CHLORIDE 100 MMOL/L (99-107); CREATININE 0.96 MG/DL (0.40-0.90); ETHANOL < 0.010 GM/DL (0.0-0.010); GLUCOSE 104 MG/DL (70-104); POTASSIUM 3.5 MMOL/L (3.5-5.1); SODIUM 138 MMOL/L (135-145); TOTAL CARBON DIOXIDE 29.2 MMOL/L (24-32); TOTAL PROTEIN 8.3 G/DL (6.4-8.2); eGFR 67 ML/MIN
[2018-08-08 00:22] LABS: URINE AMPHETAMINE SCREEN NEGATIVE (Neg); URINE BARBITUATE SCREEN NEGATIVE (Neg); URINE BENZODIAZEPINES SCREEN NEGATIVE (Neg); URINE CANNABINOID SCREEN NEGATIVE (Neg); URINE COCAINE SCREEN NEGATIVE (Neg); URINE METHADONE SCREEN NEGATIVE (Neg); URINE OPIATE SCREEN NEGATIVE (Neg); URINE PHENCYCLIDINE SCREEN NEGATIVE (Neg)
[2018-08-08 00:40] LABS: CLARITY,URINE CLEAR (Clear); COLOR,URINE STRAW (Yellow); GLUCOSE, URINE NEGATIVE (Neg); KETONES,URINE NEGATIVE (Neg); LEUKOCYTE ESTERASE ,URINE NEGATIVE (Neg); NITRITES, URINE NEGATIVE (Neg); OCCULT BLOOD,URINE SMALL (Neg); PROTEIN,URINE NEGATIVE (Neg); UA COLLECTION TYPE CLN CATCH MIDSTREAM; UROBILINOGEN,URINE 0.2 E.U/dL (0.2-1.0)
[2018-08-08 01:07] LABS: BACTERIA,URINE FEW /HPF (Neg); RBC,URINE 0-2 /HPF (0-2); SQUAMOUS EPITHELIAL CELL,UR MODERATE /LPF (FEW); WBC,URINE 0-4 /HPF (0-4)
[2018-08-08] MEDS ORDERED: OLANZapine 5mg rapidly disint. tablet PO ONE (02:00)
[2018-08-08] MEDS ORDERED: AZIT500T PO (07:03)
[2018-08-08 07:11] VITALS: BP 127/65
== END 2018-08-08 13:52 | disposition home or self-care (01) ==
LOC: ER 23:17
DX: R45.851 Suicidal ideations (principal); E78.00 Pure hypercholesterolemia, unspecified; J44.9 Chronic obstructive pulmonary disease, unspecified; K21.9 Gastro-esophageal reflux disease without esophagitis; E11.9 Type 2 diabetes mellitus without complications; G89.29 Other chronic pain; Z98.890 Other specified postprocedural states; Z88.6 Allergy status to analgesic agent; Z79.2 Long term (current) use of antibiotics; Z79.899 Other long term (current) drug therapy
CPT/HCPCS: 36415; 80053; 80305; 80320; 81001; 81003; 81025; 85025; 99284

== ENCOUNTER 2019-01-04 05:42 | Emergency (ER) | payer MEDICARE, MEDICAID ==
[~2019-01-04] VITALS: Ht 154.9 cm; Wt 133.6 kg
[~2019-01-04 05:42] MED LIST changes: -LAMO25TA; +LAMO25TA5
[2019-01-04] MEDS ORDERED: normal saline 1000ML IV soln IVB ONE (06:25)
--- NOTE | 2019-01-04 08:07 | NUR ---
CALLED POISON CONTROL TO REPORT THE PT TAKING THE RESTORIL. HE SUGGESTS WATCHING FOR MAYBE A FEW HOURS, LOOK FOR RESP DEPRESSION, AND DO A TYLENOL LEVEL. AND IF GOOD SEND HOME.
[2019-01-04 08:11] LABS: BASOPHILS % (AUTO) 0.3 % (0-1); EOSINOPHILS % (AUTO) 0.2 % (0-6); HEMATOCRIT 41.7 % (35.0-45.0); HEMOGLOBIN 13.8 g/dl (12.0-16.0); LYMPHOCYTES # (AUTO) 1.3 X10'3 (1.1-4.8); LYMPHOCYTES % (AUTO) 12.2 % (21-51); MEAN CORPUSCULAR HEMOGLOBIN 28.5 PG (27.0-31.0); MEAN CORPUSCULAR VOLUME 86.2 FL (78-98); MEAN PLATELET VOLUME 6.8 FL (7.4-10.4); MONOCYTES # (AUTO) 0.7 X10'3 (0-0.9); MONOCYTES % (AUTO) 6.4 % (2-12); NEUTROPHILS # (AUTO) 8.9 X10'3 (1.8-7.7); NEUTROPHILS % (AUTO) 80.9 % (42-75); PLATELET COUNT 308 X10'3 (140-440); RED BLOOD COUNT 4.84 X10'6 (4.20-5.60); RED CELL DISTRIBUTION WIDTH 14.7 % (11.5-14.5)
[2019-01-04 08:25] LABS: ALANINE AMINOTRANSFERASE 32 U/L (12-78); ALBUMIN 3.6 G/DL (3.4-5.0); ALBUMIN/GLOBULIN RATIO 0.8 (1.1-1.5); ALKALINE PHOSPHATASE 43 IU/L (46-116); ANION GAP 9 (8-16); ASPARTATE AMINO TRANSFERASE 15 U/L (10-37); BILIRUBIN,TOTAL 0.2 MG/DL (0.1-1.0); BLOOD UREA NITROGEN 5 MG/DL (7-18); BUN/CREATININE RATIO 5.9 (6.6-38.0); CALCIUM 9.1 MG/DL (8.5-10.1); CHLORIDE 103 MMOL/L (99-107); CREATININE 0.85 MG/DL (0.40-0.90); GLUCOSE 113 MG/DL (70-104); SODIUM 141 MMOL/L (135-145); TOTAL CARBON DIOXIDE 28.7 MMOL/L (24-32); TOTAL PROTEIN 8.1 G/DL (6.4-8.2); eGFR 78 ML/MIN
--- NOTE | 2019-01-04 08:28 | NUR ---
MD AWARE OF POISON CONTROL'S SUGGESTION OF CHECKING AN ACETAMINOPHEN LEVEL. HE WANTS PT'S FAMILY CALLED AND FIND OUT WHAT THE LIVING SITUATION IS AND IF ANYONE CAN COME TAKE HER HOME AND HELP HER BE SAFE.
[2019-01-04 08:30] LABS: URINE HCG NEGATIVE (NEG)
[2019-01-04 08:37] LABS: CLARITY,URINE SLIGHTLY CLOUDY (Clear); COLOR,URINE STRAW (Yellow); GLUCOSE, URINE NEGATIVE (Neg); KETONES,URINE NEGATIVE (Neg); LEUKOCYTE ESTERASE ,URINE TRACE (Neg); NITRITES, URINE NEGATIVE (Neg); OCCULT BLOOD,URINE SMALL (Neg); PH,URINE 6.5 (4.8-8.0); PROTEIN,URINE NEGATIVE (Neg); UROBILINOGEN,URINE 0.2 E.U/dL (0.2-1.0)
[2019-01-04 08:40] LABS: UA COLLECTION TYPE VOIDED
[2019-01-04 08:45] LABS: ACETAMINOPHEN < 2.0 UG/ML (10-30)
[2019-01-04 08:46] LABS: BACTERIA,URINE 2+ /HPF (Neg); SQUAMOUS EPITHELIAL CELL,UR MANY /LPF (FEW)
[2019-01-04 09:55] VITALS: BP 154/83
== END 2019-01-04 10:03 | disposition home or self-care (01) ==
LOC: ER 05:43
DX: T42.4X1A Poisoning by benzodiazepines, accidental (unintentional), initial encounter (principal); E78.00 Pure hypercholesterolemia, unspecified; J44.9 Chronic obstructive pulmonary disease, unspecified; K21.9 Gastro-esophageal reflux disease without esophagitis; E11.9 Type 2 diabetes mellitus without complications; G89.29 Other chronic pain; Z98.890 Other specified postprocedural states; Z88.6 Allergy status to analgesic agent; Z79.899 Other long term (current) drug therapy; Y92.89 Other specified places as the place of occurrence of the external cause
CPT/HCPCS: 36415; 80053; 80329; 81001; 81025; 85025; 96360; 96361; 99284; J7030

== ENCOUNTER 2019-01-07 12:03 | Emergency (ER) | payer MEDICARE, MEDICAID ==
[~2019-01-07] VITALS: Ht 157.5 cm; Wt 127.0 kg
--- NOTE | 2019-01-07 12:30 | NUR ---
PT WAS ESCORTED TO BED 27 BY EMS.
--- NOTE | 2019-01-07 12:57 | NUR ---
PT ATTEMPTED TO GIVE URINE SAMPLE, BUT UNABLE AT THIS TIME. PT GIVEN WATER TO DRINK, PT IS NOW IN BED DRINKING WATER.
--- NOTE | 2019-01-07 13:12 | NUR ---
PT IS EATING LUNCH NOW.
[2019-01-07 13:13] LABS: BASOPHILS % (AUTO) 0.1 % (0-1); EOSINOPHILS # (AUTO) 0.1 X10'3 (0-0.9); EOSINOPHILS % (AUTO) 0.8 % (0-6); HEMOGLOBIN 14.4 g/dl (12.0-16.0); LYMPHOCYTES # (AUTO) 1.8 X10'3 (1.1-4.8); LYMPHOCYTES % (AUTO) 14.3 % (21-51); MEAN CORPUSCULAR HEMOGLOBIN 28.9 PG (27.0-31.0); MEAN CORPUSCULAR HGB CONC 33.6 g/dL (33.0-36.5); MEAN PLATELET VOLUME 6.8 FL (7.4-10.4); MONOCYTES # (AUTO) 0.9 X10'3 (0-0.9); MONOCYTES % (AUTO) 7.3 % (2-12); NEUTROPHILS # (AUTO) 9.9 X10'3 (1.8-7.7); NEUTROPHILS % (AUTO) 77.5 % (42-75); PLATELET COUNT 314 X10'3 (140-440); RED CELL DISTRIBUTION WIDTH 14.8 % (11.5-14.5); WHITE BLOOD COUNT 12.7 X10'3 (4.5-11.0)
[2019-01-07 13:33] LABS: ALANINE AMINOTRANSFERASE 35 U/L (12-78); ALBUMIN 3.9 G/DL (3.4-5.0); ALBUMIN/GLOBULIN RATIO 0.9 (1.1-1.5); ALKALINE PHOSPHATASE 49 IU/L (46-116); ANION GAP 11 (8-16); ASPARTATE AMINO TRANSFERASE 20 U/L (10-37); BILIRUBIN,TOTAL 0.5 MG/DL (0.1-1.0); BLOOD UREA NITROGEN 7 MG/DL (7-18); BUN/CREATININE RATIO 7.4 (6.6-38.0); CALCIUM 9.7 MG/DL (8.5-10.1); CHLORIDE 102 MMOL/L (99-107); CREATININE 0.94 MG/DL (0.40-0.90); ETHANOL < 0.010 GM/DL (0.0-0.010); GLUCOSE 103 MG/DL (70-104); POTASSIUM 3.8 MMOL/L (3.5-5.1); SODIUM 140 MMOL/L (135-145); TOTAL CARBON DIOXIDE 27.5 MMOL/L (24-32); TOTAL PROTEIN 8.4 G/DL (6.4-8.2); eGFR 69 ML/MIN
[2019-01-07 14:04] LABS: URINE HCG NEGATIVE (NEG)
--- NOTE | 2019-01-07 14:05 | NUR ---
PT IS SLEEPING, UNLABORED BREATHING, NO S/S OF DISTRESS.
[2019-01-07 14:11] LABS: CLARITY,URINE CLEAR (Clear); COLOR,URINE YELLOW (Yellow); GLUCOSE, URINE NEGATIVE (Neg); KETONES,URINE NEGATIVE (Neg); LEUKOCYTE ESTERASE ,URINE NEGATIVE (Neg); NITRITES, URINE NEGATIVE (Neg); OCCULT BLOOD,URINE LARGE (Neg); PROTEIN,URINE NEGATIVE (Neg); UROBILINOGEN,URINE 0.2 E.U/dL (0.2-1.0)
[2019-01-07 14:13] LABS: URINE AMPHETAMINE SCREEN NEGATIVE (Neg); URINE BARBITUATE SCREEN NEGATIVE (Neg); URINE BENZODIAZEPINES SCREEN NEGATIVE (Neg); URINE CANNABINOID SCREEN NEGATIVE (Neg); URINE COCAINE SCREEN NEGATIVE (Neg); URINE METHADONE SCREEN NEGATIVE (Neg); URINE OPIATE SCREEN NEGATIVE (Neg); URINE PHENCYCLIDINE SCREEN NEGATIVE (Neg)
[2019-01-07 14:18] LABS: UA COLLECTION TYPE CLN CATCH MIDSTREAM
[2019-01-07 14:30] LABS: MUCUS STRANDS FEW /LPF (Neg); SQUAMOUS EPITHELIAL CELL,UR MANY /LPF (FEW)
[2019-01-07 14:35] LABS: WBC,URINE 0-4 /HPF (0-4)
[2019-01-07 14:38] LABS: BACTERIA,URINE 1+ /HPF (Neg)
[2019-01-07 14:46] LABS: TRANSITIONAL EPI CELLS,URINE FEW /HPF
--- NOTE | 2019-01-07 15:35 | NUR ---
PT IS RESTING QUIETLY IN BED. PT REPORTS THAT "SHE IS OK," NO NEEDS AT THIS TIME.
--- NOTE | 2019-01-07 15:51 | NUR ---
PT IS SLEEPING, UNLABORED BREATHING, NO S/S OF DISTRESS.
--- NOTE | 2019-01-07 19:00 | NUR ---
Pt was sitting up in bed eating upon assessment. Pt states she is still feeling suicidal and that her plan would be to overdose on pills. She said, "Last weekend I overdosed on my pills." She states she is upset and not talking to her family because "they just use me for babysitting and they tell me things like i won't let you see the kids anymore." She says her feelings are hurt. She also states she has trouble sleeping which is part of "the problem."
[2019-01-07] MEDS ORDERED: LORazepam 1 MG tablet PO ONE (20:30)
--- NOTE | 2019-01-07 21:00 | NUR ---
Md ordered 1 mg lorazepam PO x1 for pt to aid in sleep. Lorazepam given to pt as ordered.
--- NOTE | 2019-01-07 23:21 | NUR ---
Pt is currently asleep in bed.
--- NOTE | 2019-01-08 01:23 | NUR ---
Pt is sleeping on R side, no signs or symptoms of distress.
--- NOTE | 2019-01-08 03:01 | NUR ---
Pt is asleep on R side, no signs or symptoms of distress.
--- NOTE | 2019-01-08 05:22 | NUR ---
Pt is asleep on right side, no signs or symptoms of distress at this time.
--- NOTE | 2019-01-08 08:58 | NUR ---
[facility] here to evaluate pt. Med rec completed.
[2019-01-08] MEDS ORDERED: ACET-1131 PO (09:08)
[2019-01-08] MEDS ORDERED: ACETAZOLAMIDE PO (09:11)
[2019-01-08] MEDS ORDERED: PALI234D IM ×3 (09:14→09:17)
[2019-01-08] MEDS ORDERED: LORA10TA7 PO (09:19)
[2019-01-08] MEDS ORDERED: DESV50TA PO (09:21)
[2019-01-08] MEDS ORDERED: TEMA15CA PO (09:22)
[2019-01-08] MEDS ORDERED: TERB30CR13 (09:25)
[2019-01-08] MEDS ORDERED: ALBU18HF2 INH (09:28)
[2019-01-08] MEDS ORDERED: PYRI50TA10 PO (09:30)
[2019-01-08] MEDS ORDERED: acetaminophen 325mg tablet PO PRN (11:30)
[2019-01-08] MEDS ORDERED: albuterol 2.5 MG/3 ML nebule NEB PRN (11:30)
[2019-01-08] MEDS: albuterol 2.5 MG/3 ML nebule NEB SCH ×2 (15:00→20:56)
[2019-01-08] MEDS: acetaZOLAMIDE 500mg capsule.SA PO SCH (20:11)
[2019-01-08] MEDS: venlafaxine 25mg tablet PO SCH (20:11)
[2019-01-08] MEDS: budesonide 0.5mg/2ml UD nebule IH SCH (20:56)
[2019-01-08] MEDS ORDERED: lamoTRIgine 25mg tablet PO SCH (21:00)
[2019-01-08] MEDS ORDERED: diphenhydrAMINE 25mg capsule PO ONE (21:30)
[2019-01-09 05:42] VITALS: BP 117/72
[2019-01-09] MEDS: albuterol 2.5 MG/3 ML nebule NEB SCH ×2 (07:00→09:03)
[2019-01-09] MEDS ORDERED: pantoprazole 40mg Tablet.DR PO SCH (07:30)
[2019-01-09] MEDS ORDERED: loratadine 10mg tablet PO SCH (08:00)
[2019-01-09] MEDS ORDERED: atorvastatin 20mg tablet PO SCH (08:00)
[2019-01-09] MEDS: venlafaxine 25mg tablet PO SCH (08:43)
[2019-01-09] MEDS: acetaZOLAMIDE 500mg capsule.SA PO SCH (08:43)
[2019-01-09] MEDS: budesonide 0.5mg/2ml UD nebule IH SCH (09:03)
[2019-01-13] MEDS ORDERED: paliperidone palmitate inj 234 MG/1.5 ML SYRINGE IM ONE (09:00)
== END 2019-01-09 09:55 ==
LOC: ER 12:04
DX: F31.9 Bipolar disorder, unspecified (principal); G43.909 Migraine, unspecified, not intractable, without status migrainosus; E78.00 Pure hypercholesterolemia, unspecified; J44.9 Chronic obstructive pulmonary disease, unspecified; K21.9 Gastro-esophageal reflux disease without esophagitis; E11.9 Type 2 diabetes mellitus without complications; G89.29 Other chronic pain; M54.9 Dorsalgia, unspecified; F41.9 Anxiety disorder, unspecified; Z88.6 Allergy status to analgesic agent
CPT/HCPCS: 36415; 80053; 80305; 80320; 81001; 81025; 85025; 94640; 94760; 99285; Q0163; J7626

== ENCOUNTER 2019-01-09 08:40 | Inpatient (IN) | payer MEDICARE, MEDICAID ==
[~2019-01-09] VITALS: Ht 154.9 cm; Wt 130.6 kg
[~2019-01-09 08:40] MED LIST changes: +ACET-1131 PO; +ACETAZOLAMIDE PO; -CETI-136 PO; +DESV50TA PO; -HYDR-3965 PO; -LORA0.5T; +LORA10TA7 PO; -LURA60TA2 PO; +PALI234D IM; -PALI6TAB6 PO; +PYRI50TA10 PO; -SUCR1TAB; +TEMA15CA PO; +TERB30CR13; -TRAZ-218 PO; -VENL75CA61 PO
[2019-01-09] MEDS ORDERED: mag hydrox/Alum hydrox/simeth 30ml oral suspension PO PRN (11:00)
[2019-01-09] MEDS ORDERED: acetaminophen 325mg tablet PO PRN ×2 (11:00)
[2019-01-09] MEDS ORDERED: tuberculin, purif. prot. deriv. 5 units/0.1ml ID ONE (11:00)
[2019-01-09] MEDS ORDERED: magnesium hydroxide 30ml (MOM) UD suspension PO PRN (11:00)
[2019-01-09 11:35] VITALS: BP 122/88
[2019-01-09] MEDS ORDERED: temazepam 15mg capsule PO PRN (14:10)
[2019-01-09] MEDS ORDERED: non-formulary drug (Albuterol Sulfate (Ventolin Hfa) 2 PUFFS) INH SCH (14:10)
[2019-01-09] MEDS ORDERED: albuterol 2.5 MG/3 ML nebule NEB PRN (14:20)
--- NOTE | 2019-01-09 15:49 | NUR ---
ADMIT NOTE Nursing Progress Note: Legal hold: INVOLUNTARY 5150 Client on voluntary/involuntary status for GD/DTS/DTO: DTS Report received from nurse with use of SBAR: New Admit Why are they here: The patient presents as depressed, anhedonic, has been isolating, with poor sleep and appetite, low energy, feels hopeless and worthless and attempted suicide via overdose of her medications. She continues to endorse suicidal ideation with a plan to overdose. She reported command auditory hallucinations telling her to kill herself as well. She was unable to formulate a viable safety plan and is a danger to herself. Assessment What has happened this shift: She was admitted to the unit, belongings were inventoried and she was oriented to the unit. She is alert and oriented to person time and place. She has been on the unit before and understands routine. She is depressed and at times tearful. She has a constricted and sad affect. She is cooperative and calm. Went to morning group but stated she was "too tired" to go to afternoon group. She is fully cooperative with admission process. PPD was placed and she answered all questions. She has a left "lazy eye", Asthma and Gerd. She states she is hearing voices that are telling her "your worthless" and to "jump off a bridge" or "take all your pills." She states she knows the voices aren't real. She denies being suicidal at this time, but is afraid and disturbed by the voices, "I can't stop them." S/I, H/I: Denies A/VH: Auditory Sleep: Napped ADL's: Self Group attendance: Morning group Were meds taken: Any med S/E[] Mental Status Exam Appearance: Clean Eye contact: Good Behavior: Cooperative Speech: Normal Mood: Depressed Affect: Constricted Thought process: Linear Thought Content: disturbed by voices Cognition: Alert and oriented Insight: Fair Judgment: Poor Interventions PRN's used: None Therapeutic interventions: 1:1 assessment with patient, provided active listening, maintained a safe and therapeutic environment, established rapport and trust. Provided positive reinforcement and reassurance. Provided q15m safety checks. Restraints/seclusion/emergency medication: None Justification of Continued Inpatient Treatment: Patient has poor judgment and is a danger to herself, she requires medication management and a therapeutic milieu to interrupt current crisis. Without intervention she would be at risk for readmission.
[2019-01-09 19:32] VITALS: BP 122/82
[2019-01-09] MEDS ORDERED: traZODone 50mg tablet PO PRN (19:45)
[2019-01-09] MEDS: acetaZOLAMIDE 500mg capsule.SA PO SCH (20:51)
[2019-01-09] MEDS: traZODone 50mg tablet PO SCH (20:51)
[2019-01-09] MEDS: lamoTRIgine 100mg tablet PO SCH (20:51)
[2019-01-09] MEDS ORDERED: venlafaxine 25mg tablet PO SCH (21:00)
[2019-01-09] MEDS: budesonide 0.5mg/2ml UD nebule IH SCH (21:00)
[2019-01-09] MEDS ORDERED: lamoTRIgine 25mg tablet PO SCH (21:00)
[2019-01-09] MEDS: albuterol 2.5 MG/3 ML nebule NEB SCH (21:00)
--- NOTE | 2019-01-10 01:27 | NUR ---
Nursing Progress Note: Legal hold: 5150 Client on voluntary/involuntary status for GD/DTS/DTO: DTS Report received from nurse with use of SBAR: MICHELET Martin Why are they here: The patient presents as depressed, anhedonic, has been isolating, with poor sleep and appetite, low energy, feels hopeless and worthless and attempted suicide via overdose of her medications. She continues to endorse suicidal ideation with a plan to overdose. She reported command auditory hallucinations telling her to kill herself as well. She was unable to formulate a viable safety plan and is a danger to herself. Assessment What has happened this shift: Patient remans in bed most of this shift except for when she gets up to meet with the physician. Patient is cooperative and friendly. She agrees to a 1;1 assessment at her bedside. She denies current SI/HI/ States she has AH and they are currently negative and command in nature, they tell her to harm herself. She knows they are not real but they are so frequent they bother her. Her current complaint is that she ahs been having lack of sleep, and she is hopeful to get a goods night rest and not have any intrusive/racing thoughts. She is compliant with all her evening medications and turns to bed after HS medication administration. S/I, H/I: Denies A/VH: Auditory, Negative command in nature. Sleep: Currently sleeping, see sleep assessment ADL's: Self Group attendance: No groups this shift Were meds taken: Yes Any med S/E: None noted or observed Mental Status Exam Appearance: Disheveled Eye contact: Good Behavior: Cooperative Speech: Slow in rate, normal volume &rhythm Mood: Depressed Affect: Restricted Thought process: Linear Thought Content: Preoccupied with negative voices Cognition: A&O x4 Insight: Fair Judgment: Poor Interventions PRN's used: None Therapeutic interventions: 1:1 assessment with patient, provided active listening, maintained a safe and therapeutic environment to help establish rapport. Provided positive reinforcement. Assessed for self-harm risk. Medication administration and education. Maintained Q 15 minute checks for safety. Restraints/seclusion/emergency medication: None Justification of Continued Inpatient Treatment: Patient has poor judgment and is a danger to herself, she requires medication management and a therapeutic milieu to interrupt current crisis. Without intervention she would be at risk for readmission.
[2019-01-10] MEDS: albuterol 2.5 MG/3 ML nebule NEB SCH ×4 (02:47→20:02)
[2019-01-10] MEDS: atorvastatin 20mg tablet PO SCH (07:55)
[2019-01-10] MEDS: pantoprazole 40mg Tablet.DR PO SCH (07:55)
[2019-01-10] MEDS: acetaZOLAMIDE 500mg capsule.SA PO SCH ×2 (07:55→19:09)
[2019-01-10] MEDS: loratadine 10mg tablet PO SCH (07:55)
[2019-01-10 08:00] VITALS: BP 101/68
[2019-01-10] MEDS ORDERED: PRISTIQ 50 MG PO SCH (08:00)
[2019-01-10] MEDS: PRISTIQ 50 MG PO SCH (08:00)
[2019-01-10] MEDS: budesonide 0.5mg/2ml UD nebule IH SCH ×2 (08:20→20:03)
--- NOTE | 2019-01-10 12:43 | NUR ---
NURSING PROGRESS NOTE Legal hold: INVOLUNTARY 5150 Client on voluntary/involuntary status for GD/DTS/DTO: DTS Report received from MICHELET Madsen with use of SBAR: Why are they here: The patient presents as depressed, anhedonic, has been isolating, with poor sleep and appetite, low energy, feels hopeless and worthless and attempted suicide via overdose of her medications. She continues to endorse suicidal ideation with a plan to overdose. She reported command auditory hallucinations telling her to kill herself as well. She was unable to formulate a viable safety plan and is a danger to herself. Assessment What has happened this shift: The patient was soundly asleep at change of shift. She was able to awaken, talk to nurse and go to breakfast. She is med compliant. Depressed mood with blunted affect. Reports AH's as "not so loud now." When asked about her mood stated, "I'm just tired now." She went to all groups and meals and napped between . She denies having any suicidal thoughts. Calm and cooperative. She was asked to have someone bring in her Pristiq, but stated there was no one who could help her. "My sister doesn't drive, and I don't want my roommate in my room." Took a shower today. S/I, H/I: Denies A/VH: Auditory (not so loud) Sleep: Napped ADL's: Self Group attendance: yes Were meds taken:yes Any med S/E: None Mental Status Exam Appearance: Clean Eye contact: Good Behavior: Cooperative Speech: Normal Mood: Depressed Affect: Blunted Thought process: Linear Thought Content: I'm just tired Cognition: Alert and oriented Insight: Poor Judgment: Poor Interventions PRN's used: None Therapeutic interventions: 1:1 assessment with patient, provided active listening, maintained a safe and therapeutic environment, established rapport and trust. Provided positive reinforcement and reassurance. Provided q15m safety checks. Restraints/seclusion/emergency medication: None Justification of Continued Inpatient Treatment: Patient has poor judgment and is a danger to herself, she requires medication management and a therapeutic milieu to interrupt current crisis. Without intervention she would be at risk for readmission.
[2019-01-10 14:06] LABS: HEMOGLOBIN A1C 5.5 % (4.5-6.2)
--- NOTE | 2019-01-10 18:20 | NUR ---
Patient in room MH 327A. I have received report from MICHELET Martin and had the opportunity to ask questions and assume patient care.
[2019-01-10] MEDS: traZODone 50mg tablet PO SCH (19:09)
[2019-01-10 19:33] VITALS: BP 98/74
[2019-01-10] MEDS: lamoTRIgine 100mg tablet PO SCH (20:08)
[2019-01-11] MEDS: albuterol 2.5 MG/3 ML nebule NEB SCH ×4 (03:11→20:45)
--- NOTE | 2019-01-11 03:47 | NUR ---
Nursing Progress Note: Legal hold: 5150 Client on voluntary/involuntary status for GD/DTS/DTO: DTS Report received from nurse with use of SBAR: MICHELET Martin Why are they here: The patient presents as depressed, anhedonic, has been isolating, with poor sleep and appetite, low energy, feels hopeless and worthless and attempted suicide via overdose of her medications. She continues to endorse suicidal ideation with a plan to overdose. She reported command auditory hallucinations telling her to kill herself as well. She was unable to formulate a viable safety plan and is a danger to herself. Assessment What has happened this shift: I found patient laying in her bed and I approached her as she wasn't sleeping but resting her eyes. She agreed to a 1;1 discussion at her bedside. Patient was cooperative and friendly but slow with her responses like she might have some mental delay. She denied any SI/HI but says she stil has AH which since admit has gotten quiter but stil present. I asked what they say she said "Negative thoughts about me, how I should just hurt mysef and I'm no good". I asked her if she knew if the voices were real, she said she knows there not real but still feels some of those thoughts about herself. I asked her about things she does to make herself happy. Things she enjoys to do. She said theres severa shows she likes but limited due to her income on getting better channels on TV. She did say that she and her roomate don't really get alonge and she has a hard time sleeping and came be up at all hours. She hopes to get better sleep and mayber her racing thoughts can rest. 2100 still haven't seen patient out of her bed. S/I, H/I: Denies A/VH: Auditory, Negative command in nature. Sleep: See sleep assessment notation ADL's: Self Group attendance: No groups this shift Were meds taken: Yes Any med S/E: None noted or observed Mental Status Exam Appearance: Disheveled Eye contact: Good Behavior: Cooperative Speech: Slow in rate, normal volume &rhythm, with some delay in response. Mood: Depressed, self isolated Affect: Restricted, flat affect, labile. Thought process: Fragmented, linear in nature. Thought Content: Preoccupied with auditory voices speaking negatively towards her. Cognition: A&O x4 Insight: Fair Judgment: Poor Interventions PRN's used: None Therapeutic interventions: 1:1 assessment with patient, provided active listening, maintained a safe and therapeutic environment to help establish rapport. Provided positive reinforcement. Assessed for self-harm risk. Medication administration and education. Maintained Q 15 minute checks for safety. Restraints/seclusion/emergency medication: None Justification of Continued Inpatient Treatment: Patient has poor judgment and is a danger to herself, she requires medication management and a therapeutic milieu to interrupt current crisis. Without intervention she would be at risk for readmission.
[2019-01-11 08:00] VITALS: BP 119/70
[2019-01-11] MEDS: pantoprazole 40mg Tablet.DR PO SCH (08:00)
[2019-01-11] MEDS: budesonide 0.5mg/2ml UD nebule IH SCH ×2 (08:00→20:45)
[2019-01-11] MEDS: atorvastatin 20mg tablet PO SCH (08:00)
[2019-01-11] MEDS: loratadine 10mg tablet PO SCH (08:00)
[2019-01-11] MEDS: acetaZOLAMIDE 500mg capsule.SA PO SCH ×2 (08:00→20:24)
[2019-01-11] MEDS: PRISTIQ 50 MG PO SCH (08:00)
--- NOTE | 2019-01-11 16:56 | NUR ---
NURSING PROGRESS NOTE Legal hold: INVOLUNTARY 5150 Client on voluntary/involuntary status for GD/DTS/DTO: DTS Report received from MICHELET Gonzalez with use of SBAR: Why are they here: The patient presents as depressed, anhedonic, has been isolating, with poor sleep and appetite, low energy, feels hopeless and worthless and attempted suicide via overdose of her medications. She continues to endorse suicidal ideation with a plan to overdose. She reported command auditory hallucinations telling her to kill herself as well. She was unable to formulate a viable safety plan and is a danger to herself. Assessment What has happened this shift: The patient was soundly asleep at change of shift. She was able to awaken, talk to nurse and go to breakfast. She is med compliant. Depressed mood with blunted affect. Reports AH's as "getting softer and not so bad." The patient got up to meals but did not go to groups today stating she was "body tired." She denies suicidal thoughts. Just wanting to sleep. Dr. Salazar requesting to have pharmacy obtain Pristiq, decision pending. PPD negative S/I, H/I: Denies A/VH: Auditory (not so loud) Sleep: Napped of slept most of day ADL's: Self Group attendance: no Were meds taken:yes Any med S/E: None Mental Status Exam Appearance: disheveled Eye contact: fair Behavior: Cooperative Speech: Normal Mood: Depressed Affect: Blunted Thought process: Linear Thought Content: I'm just tired Cognition: Alert and oriented Insight: Poor Judgment: Poor Interventions PRN's used: None Therapeutic interventions: 1:1 assessment with patient, provided active listening, maintained a safe and therapeutic environment, established rapport and trust. Provided positive reinforcement and reassurance. Provided q15m safety checks. Restraints/seclusion/emergency medication: None Justification of Continued Inpatient Treatment: Patient has poor judgment and is a danger to herself, she requires medication management and a therapeutic milieu to interrupt current crisis. Without intervention she would be at risk for readmission.
[2019-01-11 20:00] VITALS: BP 124/73
[2019-01-11] MEDS: traZODone 50mg tablet PO SCH (20:24)
[2019-01-11] MEDS: venlafaxine 25mg tablet PO SCH (20:24)
[2019-01-11] MEDS: lamoTRIgine 100mg tablet PO SCH (20:24)
--- NOTE | 2019-01-12 02:46 | NUR ---
Nursing Progress Note: Legal hold: 5150 Client on voluntary/involuntary status for GD/DTS/DTO: DTS Report received from nurse with use of SBAR: MICHELET Martin Why are they here: The patient presents as depressed, anhedonic, has been isolating, with poor sleep and appetite, low energy, feels hopeless and worthless and attempted suicide via overdose of her medications. She continues to endorse suicidal ideation with a plan to overdose. She reported command auditory hallucinations telling her to kill herself as well. She was unable to formulate a viable safety plan and is a danger to herself. Assessment What has happened this shift: The patient was found in her room sleeping. She did not want to wake up. She appears tired, and answers are slow to come. She denies SI/HI, but not AH. She would not talk about what they say. The patient states that the biggest reason she came here, is that she couldn't sleep, and it was making her want to harm herself. The patoient was never seen out of bed this shift, and went right back to sleep after HS med pass. S/I, H/I: Denies A/VH: Says they are commanding.. Sleep: Has slept all this shift. ADL's: Self Group attendance: No groups this shift Were meds taken: Yes Any med S/E: None noted or observed. Mental Status Exam Appearance: Disheveled, tired. Eye contact: Poor. Behavior: Cooperative, laying in bed. Speech: Slowed with normal volume. Mood: Depressed, isolated. Affect: Flat, labile. Thought process: Fragmented, linear in nature. Thought Content: Preoccupied with sleep at this time. Cognition: A&O x4 Insight: Fair Judgment: Poor Interventions PRN's used: None Therapeutic interventions: 1:1 assessment with patient, provided active listening, maintained a safe and therapeutic environment to help establish rapport. Provided positive reinforcement. Assessed for self-harm risk. Medication administration and education. Maintained Q 15 minute checks for safety. Restraints/seclusion/emergency medication: None Justification of Continued Inpatient Treatment: Patient has poor judgment and is a danger to herself, she requires medication management and a therapeutic milieu to interrupt current crisis. Without intervention she would be at risk for readmission.
[2019-01-12] MEDS: albuterol 2.5 MG/3 ML nebule NEB SCH ×4 (02:50→20:00)
[2019-01-12 08:00] VITALS: BP 131/84
[2019-01-12] MEDS: pantoprazole 40mg Tablet.DR PO SCH (08:05)
[2019-01-12] MEDS: atorvastatin 20mg tablet PO SCH (08:05)
[2019-01-12] MEDS: loratadine 10mg tablet PO SCH (08:06)
[2019-01-12] MEDS: acetaZOLAMIDE 500mg capsule.SA PO SCH ×2 (08:06→20:29)
[2019-01-12] MEDS: venlafaxine 25mg tablet PO SCH (08:06)
--- NOTE | 2019-01-12 09:40 | NUR ---
PLEASE DISREGARD PREVIOUS NURSING PROGRESS NOTED, MISTAKEN ENTRY
--- NOTE | 2019-01-12 09:40 | NUR ---
Nursing Progress Note: Legal hold: 5150 Client on voluntary/involuntary status for DTS Report received from nurse with use of SBAR: MICHELET Remy Why are they here: The patient presents as depressed, anhedonic, has been isolating, with poor sleep and appetite, low energy, feels hopeless and worthless and attempted suicide via overdose of her medications. She continues to endorse suicidal ideation with a plan to overdose. She reported command auditory hallucinations telling her to kill herself as well. She was unable to formulate a viable safety plan and is a danger to herself. Assessment What has happened this shift: The patient was found in her room sleeping. She did not want to wake up. She appears tired, and answers are slow to come. She denies SI/HI, but not AH. She would not talk about what they say. The patient states that the biggest reason she came here, is that she couldn't sleep, and it was making her want to harm herself. The patoient was never seen out of bed this shift, and went right back to sleep after HS med pass. S/I, H/I: Denies A/VH: Says they are commanding.. Sleep: Has slept all this shift. ADL's: Self Group attendance: No groups this shift Were meds taken: Yes Any med S/E: None noted or observed. Mental Status Exam Appearance: Disheveled, tired. Eye contact: Poor. Behavior: Cooperative, laying in bed. Speech: Slowed with normal volume. Mood: Depressed, isolated. Affect: Flat, labile. Thought process: Fragmented, linear in nature. Thought Content: Preoccupied with sleep at this time. Cognition: A&O x4 Insight: Fair Judgment: Poor Interventions PRN's used: None Therapeutic interventions: 1:1 assessment with patient, provided active listening, maintained a safe and therapeutic environment to help establish rapport. Provided positive reinforcement. Assessed for self-harm risk. Medication administration and education. Maintained Q 15 minute checks for safety. Restraints/seclusion/emergency medication: None Justification of Continued Inpatient Treatment: Patient has poor judgment and is a danger to herself, she requires medication management and a therapeutic milieu to interrupt current crisis. Without intervention she would be at risk for readmission. Addendum: 01/12/19 at 0941 by Jaz Lopes RN (Lee) Please disregard note, accidently hit some button which saved it before it was completed.
--- NOTE | 2019-01-12 09:41 | NUR ---
Nursing Progress Note: Legal hold: 5150 Client on voluntary/involuntary status for DTS Report received from nurse with use of SBAR: MICHELET Garay Why are they here: The patient presents as depressed, anhedonic, has been isolating, with poor sleep and appetite, low energy, feels hopeless and worthless and attempted suicide via overdose of her medications. She continues to endorse suicidal ideation with a plan to overdose. She reported command auditory hallucinations telling her to kill herself as well. She was unable to formulate a viable safety plan and is a danger to herself. Assessment What has happened this shift: Pt was up for breakfast in the dayroom, cooperative with medications, returned to bed to nap after finished eating. Pt rated her depression at a 7/10, denied anxiety, SI/HI/VH. Pt still having AH, denies command hallucinations, states the voices say "negative things." S/I, H/I: Pt denies A/VH: +AH Sleep: Slept all night per noc RN report, napped after breakfast ADL's: Independent Group attendance: No groups today Were meds taken: Yes Any med S/E: None reported or observed Mental Status Exam Appearance: Dressed, greasy hair Eye contact: fair Behavior: withdrawn Speech: Clear, audible Mood: Depressed Affect: Depressed, flat Thought process: linear Thought Content: seems to want to sleep Cognition: A&O x4 Insight: Fair Judgment: Poor Interventions PRN's used: None Therapeutic interventions: 1:1 assessment, active listening, medication administration, monitoring, and education. Maintained Q 15 minute checks for safety. Restraints/seclusion/emergency medication: None Justification of Continued Inpatient Treatment: Patient has poor judgment and is a danger to herself, she requires medication management in a safe therapeutic environment to interrupt current crisis. Without intervention she would be at risk for readmission.
[2019-01-12] MEDS: budesonide 0.5mg/2ml UD nebule IH SCH ×2 (09:47→20:00)
[2019-01-12] MEDS ORDERED: paliperidone palmitate inj 234 MG/1.5 ML SYRINGE IM SCH (10:45)
--- NOTE | 2019-01-12 12:02 | NUR ---
Psychiatrist increased Effexor to 75 mg daily, also ordered an Invega Sustenna 234 mg injection to be given, administered at 1153 in right deltoid.
[2019-01-12 20:00] VITALS: BP 113/65
[2019-01-12] MEDS: traZODone 50mg tablet PO SCH (20:29)
[2019-01-12] MEDS: lamoTRIgine 100mg tablet PO SCH (20:29)
[2019-01-13] MEDS: albuterol 2.5 MG/3 ML nebule NEB SCH ×4 (02:59→21:51)
--- NOTE | 2019-01-13 03:16 | NUR ---
Nursing Progress Note: Legal hold: 5150 Client on voluntary/involuntary status for DTS. Report received from nurse with use of SBAR: MICHELET Morejon Why are they here: The patient presents as depressed, anhedonic, has been isolating, with poor sleep and appetite, low energy, feels hopeless and worthless and attempted suicide via overdose of her medications. She continues to endorse suicidal ideation with a plan to overdose. She reported command auditory hallucinations telling her to kill herself as well. She was unable to formulate a viable safety plan and is a danger to herself. Assessment What has happened this shift: The patient was found in her room sleeping. She easily awakened, but responds slowly. he was asked to come to the group room and hang out with her peers "I don't know." She's denying SI/HI, but states the AH messages she receives are "just mean". She states that her goal in life is to "work at [employer]". She took her meds then went right back to sleep. She did not get out of bed tonight. S/I, H/I: Denies A/VH: "They say mean things". Sleep: Has slept all this shift. ADL's: Self Group attendance: No groups this shift Were meds taken: Yes Any med S/E: None noted or observed. Mental Status Exam Appearance: Disheveled, tired. Eye contact: Poor. Behavior: Cooperative, laying in bed. Speech: Slowed with normal volume. Mood: Depressed, isolated. Affect: Flat, labile. Thought process: Fragmented, linear in nature. Thought Content: Preoccupied with sleep at this time. Cognition: A&O x4 Insight: Fair Judgment: Poor Interventions PRN's used: None Therapeutic interventions: 1:1 assessment with patient, provided active listening, maintained a safe and therapeutic environment to help establish rapport. Provided positive reinforcement. Assessed for self-harm risk. Medication administration and education. Maintained Q 15 minute checks for safety. Restraints/seclusion/emergency medication: None Justification of Continued Inpatient Treatment: Patient has poor judgment and is a danger to herself, she requires medication management and a therapeutic milieu to interrupt current crisis. Without intervention she would be at risk for readmission.
[2019-01-13 07:44] VITALS: BP 115/77
[2019-01-13] MEDS ORDERED: paliperidone palmitate inj 234 MG/1.5 ML SYRINGE IM SCH (08:00)
[2019-01-13] MEDS: loratadine 10mg tablet PO SCH (08:05)
[2019-01-13] MEDS: venlafaxine XR 75mg capsule (Q24H) PO SCH (08:05)
[2019-01-13] MEDS: acetaZOLAMIDE 500mg capsule.SA PO SCH ×2 (08:05→20:54)
[2019-01-13] MEDS: pantoprazole 40mg Tablet.DR PO SCH (08:05)
[2019-01-13] MEDS: atorvastatin 20mg tablet PO SCH (08:05)
[2019-01-13] MEDS: budesonide 0.5mg/2ml UD nebule IH SCH ×2 (08:10→21:51)
--- NOTE | 2019-01-13 14:59 | NUR ---
Nursing Progress Note: Legal hold: N/A Client is voluntary Report received from nurse with use of SBAR: MCIHELET Garay Why are they here: The patient presents as depressed, anhedonic, has been isolating, with poor sleep and appetite, low energy, feels hopeless and worthless and attempted suicide via overdose of her medications. She continues to endorse suicidal ideation with a plan to overdose. She reported command auditory hallucinations telling her to kill herself as well. She was unable to formulate a viable safety plan and is a danger to herself. Assessment What has happened this shift: Pt up for breakfast, back to bed for a nap after breakfast. Pt continues to have AH, denies CAH. When asked what the voices were saying, she replied, "negative thoughts," they tell her things like, "you don't care." Pt states that she is unable to tell if the voices are male or female but they are the same ones all of the time, pt states that she believes the meds are helping. Pt continues to be depressed but denies SI. Pt refused a shower today. No unsafe behaviors noted. S/I, H/I: Pt denies A/VH: +AH, denies VH Sleep: Slept 10.75 hours per noc shift report, napped after breakfast ADL's: Independent Group attendance: Yes Were meds taken: Yes Any med S/E: None reported or observed Mental Status Exam Appearance: Dressed in scrub pants and her own shirt Eye contact: fair Behavior: withdrawn, isolative to self Speech: Clear, audible Mood: Depressed Affect: Depressed, flat Thought process: linear Thought Content: pt thinks the meds are helping Cognition: A&O x4 Insight: Fair Judgment: Poor Interventions PRN's used: None Therapeutic interventions: 1:1 assessment, therapeutic conversation, medication administration, monitoring, and education, encouragement to perform personal hygiene, encouragement to attend groups. Maintained Q 15 minute checks for safety. Restraints/seclusion/emergency medication: None Justification of Continued Inpatient Treatment: Patient has poor judgment and is a danger to herself, she requires medication management in a safe therapeutic environment to interrupt current crisis. Without intervention she would be at risk for readmission.
[2019-01-13 20:47] VITALS: BP 95/65
[2019-01-13] MEDS: lamoTRIgine 100mg tablet PO SCH (20:54)
[2019-01-13] MEDS: traZODone 50mg tablet PO SCH (20:54)
[2019-01-14] MEDS: albuterol 2.5 MG/3 ML nebule NEB SCH ×2 (03:15→08:52)
--- NOTE | 2019-01-14 04:25 | NUR ---
Nursing Progress Note: Legal hold: 5150 Client on voluntary/involuntary status for DTS. Report received from nurse with use of SBAR: MICHELET Morejon Why are they here: The patient presents as depressed, anhedonic, has been isolating, with poor sleep and appetite, low energy, feels hopeless and worthless and attempted suicide via overdose of her medications. She continues to endorse suicidal ideation with a plan to overdose. She reported command auditory hallucinations telling her to kill herself as well. She was unable to formulate a viable safety plan and is a danger to herself. Assessment What has happened this shift: The patient was eating dinner at shift change. She appears depressed, and gives one word answers. She denies SI/HI, and won't tell me about her AH. She got frustrated with questions, got up, and went to bed. She has remained there all night. S/I, H/I: Denies A/VH: She won't talk about them. Sleep: Has slept all this shift. ADL's: Self Group attendance: No groups this shift Were meds taken: Yes Any med S/E: None noted or observed. Mental Status Exam Appearance: Disheveled, depressed, tired. Eye contact: Poor. Behavior: Cooperative, laying in bed. Speech: Slowed with normal volume. Mood: Depressed, isolated. Affect: Flat, labile. Thought process: Fragmented, linear in nature. Thought Content: Preoccupied with sleep at this time. Cognition: A&O x4 Insight: Fair Judgment: Poor Interventions PRN's used: None Therapeutic interventions: 1:1 assessment with patient, provided active listening, maintained a safe and therapeutic environment to help establish rapport. Provided positive reinforcement. Assessed for self-harm risk. Medication administration and education. Maintained Q 15 minute checks for safety. Restraints/seclusion/emergency medication: None Justification of Continued Inpatient Treatment: Patient has poor judgment and is a danger to herself, she requires medication management and a therapeutic milieu to interrupt current crisis. Without intervention she would be at risk for readmission.
[2019-01-14 07:51] VITALS: BP 108/75
[2019-01-14] MEDS: pantoprazole 40mg Tablet.DR PO SCH (08:02)
[2019-01-14] MEDS: venlafaxine XR 75mg capsule (Q24H) PO SCH (08:02)
[2019-01-14] MEDS: loratadine 10mg tablet PO SCH (08:02)
[2019-01-14] MEDS: acetaZOLAMIDE 500mg capsule.SA PO SCH (08:02)
[2019-01-14] MEDS: atorvastatin 20mg tablet PO SCH (08:02)
[2019-01-14] MEDS: budesonide 0.5mg/2ml UD nebule IH SCH (08:52)
[2019-01-14] MEDS ORDERED: LAMO100T89 PO (09:19)
[2019-01-14] MEDS ORDERED: DESV50TA PO (09:19)
[2019-01-14] MEDS ORDERED: TRAZ-218 PO (09:19)
--- NOTE | 2019-01-14 10:09 | NUR ---
Nursing Progress Note: Legal hold: N/A Client is voluntary Report received from nurse with use of SBAR: MICHELET Garay Why are they here: The patient presents as depressed, anhedonic, has been isolating, with poor sleep and appetite, low energy, feels hopeless and worthless and attempted suicide via overdose of her medications. She continues to endorse suicidal ideation with a plan to overdose. She reported command auditory hallucinations telling her to kill herself as well. She was unable to formulate a viable safety plan and is a danger to herself. Assessment What has happened this shift: Pt denied depression, anxiety, SI/HI/AH/VH this morning, was up for breakfast, showered after breakfast. Pt is being discharged home today around 1200. S/I, H/I: Pt denies A/VH: Pt denies Sleep: Slept 8.75 hours per noc shift report ADL's: Independent Group attendance: plans to attend am group Were meds taken: Yes Any med S/E: None reported or observed Mental Status Exam Appearance: Dressed in scrub pants and her own shirt Eye contact: fair Behavior: withdrawn, isolative to self Speech: Clear, audible Mood: "good" Affect: Flat Thought process: linear Thought Content: pt wishes to go home Cognition: A&O x4 Insight: Fair Judgment: Fair Interventions PRN's used: None Therapeutic interventions: 1:1 assessment, therapeutic conversation, medication administration, monitoring, and education, encouragement to perform personal hygiene, encouragement to attend groups. Maintained Q 15 minute checks for safety. Restraints/seclusion/emergency medication: None Justification of Continued Inpatient Treatment: Patient is stable, she is being discharged home today around 1200.
--- NOTE | 2019-01-14 10:56 | NUR ---
DISCHARGE NURSING NOTE: Pt discharged home. Velma, her Compass worker picked her up. Reviewed Rx's and f/u care with the patient and her worker. Pt expressed understanding of her prescriptions and follow up care. Pt and worker will go pick and shovel worker her prescriptions and she will make it to her appointment with Ronal Crawford LCSW at [facility] today at 1445. All belongings returned, pt ambulated off the unit at 1055, accompanied by PCT and Compass worker.
== END 2019-01-14 10:55 | disposition home or self-care (01) | DRG 885 ==
LOC: ADULT MH 09:46
PROVIDERS: ADMIT Psychiatry & Neurology Psychiatry; ATTEND Psychiatry & Neurology Psychiatry
DX: F25.1 Schizoaffective disorder, depressive type (principal); Z68.43 Body mass index [BMI] 50.0-59.9, adult; E66.01 Morbid (severe) obesity due to excess calories; E78.5 Hyperlipidemia, unspecified; I10 Essential (primary) hypertension; T42.6X1A Poisoning by other antiepileptic and sedative-hypnotic drugs, accidental (unintentional), initial encounter; T42.4X1A Poisoning by benzodiazepines, accidental (unintentional), initial encounter; K21.9 Gastro-esophageal reflux disease without esophagitis; G43.909 Migraine, unspecified, not intractable, without status migrainosus; R62.50 Unspecified lack of expected normal physiological development in childhood; J45.909 Unspecified asthma, uncomplicated; Z79.899 Other long term (current) drug therapy; Z79.51 Long term (current) use of inhaled steroids; Z88.6 Allergy status to analgesic agent; Z82.5 Family history of asthma and other chronic lower respiratory diseases; Z82.49 Family history of ischemic heart disease and other diseases of the circulatory system; Z81.8 Family history of other mental and behavioral disorders; Y92.89 Other specified places as the place of occurrence of the external cause
CPT/HCPCS: 36415; 83036; 83721; 87070; 94640; 94760; 99285; J7626

== ENCOUNTER 2020-02-26 18:37 | Emergency (ER) | payer MEDICARE, MEDICAID ==
[~2020-02-26] VITALS: Ht 154.9 cm; Wt 130.9 kg
[~2020-02-26 18:37] MED LIST changes: +LAMO100T PO; -LAMO25TA5; -PYRI50TA10 PO; +PYRI50TA13 PO; +TRAZ-251 PO
--- NOTE | 2020-02-26 19:45 | NUR ---
PT ATTEMPTED TO PROVIDE UA. UNABLE TO AT THIS TIME. WILL CONTINUE TO ATTEMPT TO COLLECT UA.
[2020-02-26 20:11] LABS: BASOPHILS % (AUTO) 0.4 % (0-1); EOSINOPHILS # (AUTO) 0.1 X10'3 (0-0.9); EOSINOPHILS % (AUTO) 0.5 % (0-6); HEMATOCRIT 46.6 % (35.0-45.0); HEMOGLOBIN 15.8 g/dl (12.0-16.0); LYMPHOCYTES % (AUTO) 15.6 % (21-51); MEAN CORPUSCULAR HEMOGLOBIN 29.5 PG (27.0-31.0); MEAN CORPUSCULAR HGB CONC 33.9 g/dL (33.0-36.5); MEAN PLATELET VOLUME 7.3 FL (7.4-10.4); MONOCYTES # (AUTO) 0.9 X10'3 (0-0.9); MONOCYTES % (AUTO) 6.9 % (2-12); NEUTROPHILS # (AUTO) 9.7 X10'3 (1.8-7.7); NEUTROPHILS % (AUTO) 76.6 % (42-75); PLATELET COUNT 293 X10'3 (140-440); RED BLOOD COUNT 5.36 X10'6 (4.20-5.60); RED CELL DISTRIBUTION WIDTH 13.4 % (11.5-14.5); WHITE BLOOD COUNT 12.7 X10'3 (4.5-11.0)
[2020-02-26 20:24] LABS: ALANINE AMINOTRANSFERASE 21 U/L (12-78); ALBUMIN 3.7 G/DL (3.4-5.0); ALBUMIN/GLOBULIN RATIO 0.9 (1.1-1.5); ALKALINE PHOSPHATASE 47 IU/L (46-116); ANION GAP 8 (8-16); ASPARTATE AMINO TRANSFERASE 14 U/L (10-37); BILIRUBIN,TOTAL 0.3 MG/DL (0.1-1.0); BLOOD UREA NITROGEN 8 MG/DL (7-18); BUN/CREATININE RATIO 8.7 (6.6-38.0); CALCIUM 9.2 MG/DL (8.5-10.1); CHLORIDE 103 MMOL/L (99-107); CREATININE 0.92 MG/DL (0.40-0.90); GLUCOSE 121 MG/DL (70-104); MAGNESIUM 1.7 MG/DL (1.5-2.4); POTASSIUM 3.8 MMOL/L (3.5-5.1); SODIUM 140 MMOL/L (135-145); TOTAL CARBON DIOXIDE 29.4 MMOL/L (24-32); eGFR 70 ML/MIN
--- NOTE | 2020-02-26 20:46 | NUR ---
pt dc ready, her caregiver called and message left as she will be picking her up
--- NOTE | 2020-02-26 21:27 | NUR ---
tried calling sandy director of women's services 2 times left message never recevied call back spoke to primary nurse and charge nurse is it okay to call for canb for pt as per primary nurse park its okay as pt has taken cab and bus before and pt is aware of situation,pt is comfortable with cab ,charge nurse roly aware.cab order for pt waiting time 30 mins.
[2020-02-26 21:30] VITALS: BP 139/87
== END 2020-02-26 21:38 | disposition home or self-care (01) ==
LOC: ER 18:38
DX: R53.81 Other malaise (principal); R53.1 Weakness; G43.909 Migraine, unspecified, not intractable, without status migrainosus; E78.00 Pure hypercholesterolemia, unspecified; J45.909 Unspecified asthma, uncomplicated; J44.9 Chronic obstructive pulmonary disease, unspecified; K21.9 Gastro-esophageal reflux disease without esophagitis; E11.9 Type 2 diabetes mellitus without complications; G89.29 Other chronic pain; G47.30 Sleep apnea, unspecified; F41.9 Anxiety disorder, unspecified; F31.9 Bipolar disorder, unspecified; Z88.6 Allergy status to analgesic agent; Z79.899 Other long term (current) drug therapy
CPT/HCPCS: 36415; 80053; 83735; 85025; 99283

== ENCOUNTER 2020-09-13 08:47 | Day surgery (SDC) | payer MEDICARE, MEDICAID ==
[~2020-09-13] VITALS: Ht 154.9 cm; Wt 135.9 kg
[~2020-09-13 08:47] MED LIST changes: -ATOR20TA66; +ATOR20TA66 PO; -PANT40TA4 PO; +PANT40TA54 PO
[2020-09-13] MEDS ORDERED: fentaNYL/PF 50MCG/1 ML 2ML syringe ONE (09:02)
[2020-09-13] MEDS ORDERED: MIDAZolam 5mg/5ml vial ONE (09:03)
[2020-09-13] MEDS ORDERED: LIDOcaine Viscous 15ml cup ONE (09:03)
[2020-09-13 09:04] VITALS: BP 141/96
[2020-09-13] MEDS ORDERED: TRAZ-256 PO (09:33)
[2020-09-13] MEDS ORDERED: TRAZ-251 PO (09:33)
[2020-09-13] MEDS ORDERED: VIT1CAPS9 PO (09:36)
[2020-09-13] MEDS ORDERED: NORG1TAB12 PO (09:37)
[2020-09-13] MEDS ORDERED: LAMO100T65 PO (09:37)
[2020-09-13] MEDS ORDERED: RISP0.5T74 PO (09:38)
[2020-09-13 10:18] VITALS: BP 121/84
[2020-09-13 10:28] VITALS: BP 117/77
[2020-09-13 10:38] VITALS: BP 114/77
[2020-09-13 10:48] VITALS: BP 107/71
== END 2020-09-13 11:00 | disposition home or self-care (01) ==
LOC: GI LAB 08:47
PROVIDERS: ATTEND Internal Medicine Gastroenterology
DX: K21.00 Gastro-esophageal reflux disease with esophagitis, without bleeding (principal); K44.9 Diaphragmatic hernia without obstruction or gangrene; E66.01 Morbid (severe) obesity due to excess calories; Z68.43 Body mass index [BMI] 50.0-59.9, adult; J45.909 Unspecified asthma, uncomplicated; Z88.8 Allergy status to other drugs, medicaments and biological substances; Z79.899 Other long term (current) drug therapy
CPT/HCPCS: 43239; G0500; J2250; J3010; J7040; 99152; A4620

== ENCOUNTER 2021-11-27 20:53 | Emergency (ER) | payer MEDICARE, MEDICAID ==
[~2021-11-27] VITALS: Ht 154.9 cm; Wt 135.8 kg
[~2021-11-27 20:53] MED LIST changes: -BUDE10.2; -LAMO100T PO; +LAMO100T65 PO; +NORG1TAB12 PO; +PYRI-3 PO; -PYRI50TA13 PO; +RISP0.5T74 PO; -TEMA15CA PO; -TERB30CR13; +TRAZ-256 PO; +VIT1CAPS9 PO
[2021-11-27 21:59] LABS: CLARITY,URINE CLEAR (Clear); COLOR,URINE YELLOW (Yellow); GLUCOSE, URINE NEGATIVE (Neg); KETONES,URINE TRACE mg/dl (Neg); LEUKOCYTE ESTERASE ,URINE NEGATIVE (Neg); NITRITES, URINE NEGATIVE (Neg); OCCULT BLOOD,URINE NEGATIVE (Neg); PH,URINE 5.5 (4.8-8.0); PROTEIN,URINE TRACE mg/dl (Neg); UROBILINOGEN,URINE 0.2 E.U/dL (0.2-1.0)
[2021-11-27 21:59] LABS: BASOPHILS # (AUTO) 0.1 X10'3 (0-0.2); BASOPHILS % (AUTO) 0.4 % (0-1); EOSINOPHILS # (AUTO) 0.1 X10'3 (0-0.9); EOSINOPHILS % (AUTO) 1.1 % (0-6); HEMATOCRIT 41.7 % (35.0-45.0); HEMOGLOBIN 14.1 g/dl (12.0-16.0); LYMPHOCYTES # (AUTO) 2.9 X10'3 (1.1-4.8); MEAN CORPUSCULAR HEMOGLOBIN 28.8 PG (27.0-31.0); MEAN CORPUSCULAR HGB CONC 33.8 g/dL (33.0-36.5); MEAN CORPUSCULAR VOLUME 85.2 FL (78-98); MEAN PLATELET VOLUME 7.1 FL (7.4-10.4); MONOCYTES % (AUTO) 7.5 % (2-12); NEUTROPHILS # (AUTO) 8.7 X10'3 (1.8-7.7); PLATELET COUNT 323 X10'3 (140-440); RED BLOOD COUNT 4.89 X10'6 (4.20-5.60); RED CELL DISTRIBUTION WIDTH 14.4 % (11.5-14.5); WHITE BLOOD COUNT 12.7 X10'3 (4.5-11.0)
[2021-11-27 22:01] LABS: URINE HCG NEGATIVE (NEG)
[2021-11-27 22:04] LABS: UA COLLECTION TYPE CLN CATCH MIDSTREAM
[2021-11-27 22:05] LABS: BACTERIA,URINE NONE SEEN /HPF (Neg); RBC,URINE 0-2 /HPF (0-2); SQUAMOUS EPITHELIAL CELL,UR FEW /LPF (FEW); WBC,URINE 0-4 /HPF (0-4)
[2021-11-27 22:14] LABS: URINE AMPHETAMINE SCREEN NEGATIVE (Neg); URINE BARBITUATE SCREEN NEGATIVE (Neg); URINE BENZODIAZEPINES SCREEN NEGATIVE (Neg); URINE CANNABINOID SCREEN NEGATIVE (Neg); URINE COCAINE SCREEN NEGATIVE (Neg); URINE METHADONE SCREEN NEGATIVE (Neg); URINE OPIATE SCREEN NEGATIVE (Neg); URINE PHENCYCLIDINE SCREEN NEGATIVE (Neg)
[2021-11-27 22:15] LABS: ALANINE AMINOTRANSFERASE 29 U/L (12-78); ALBUMIN 3.6 G/DL (3.4-5.0); ALBUMIN/GLOBULIN RATIO 0.8 (1.1-1.5); ALKALINE PHOSPHATASE 45 IU/L (46-116); ANION GAP 8 (8-16); ASPARTATE AMINO TRANSFERASE 12 U/L (10-37); BILIRUBIN,TOTAL 0.3 MG/DL (0.1-1.0); BLOOD UREA NITROGEN 6 MG/DL (7-18); BUN/CREATININE RATIO 8.2 (6.6-38.0); CALCIUM 9.3 MG/DL (8.5-10.1); CHLORIDE 102 MMOL/L (99-107); CREATININE 0.73 MG/DL (0.40-0.90); ETHANOL < 0.010 GM/DL (0.0-0.010); GLUCOSE 153 MG/DL (70-104); POTASSIUM 3.4 MMOL/L (3.5-5.1); SODIUM 137 MMOL/L (135-145); TOTAL CARBON DIOXIDE 27.5 MMOL/L (24-32); TOTAL PROTEIN 7.9 G/DL (6.4-8.2); eGFR > 90 ML/MIN
[2021-11-27] MEDS ORDERED: CHOL500050 PO (22:37)
[2021-11-27] MEDS ORDERED: METO10TA3 PO (22:37)
[2021-11-27] MEDS ORDERED: ETHI1TAB18 PO (22:37)
[2021-11-27] MEDS ORDERED: RISP0.5T65 PO (22:37)
[2021-11-27] MEDS ORDERED: DESV100T16 PO (22:38)
--- NOTE | 2021-11-27 23:17 | NUR ---
patient up to the bathroom
[2021-11-28] MEDS ORDERED: traZODone 150mg tablet PO SCH (02:50)
[2021-11-28] MEDS ORDERED: risperiDONE 0.5mg tablet PO PRN (03:55)
[2021-11-28] MEDS ORDERED: albuterol 2.5 MG/3 ML nebule NEB PRN (03:55)
[2021-11-28] MEDS ORDERED: paliperidone palmitate inj 234 MG/1.5 ML SYRINGE IM SCH (03:55)
--- NOTE | 2021-11-28 06:45 | NUR ---
PACKET FAXED TO [facility]
--- NOTE | 2021-11-28 07:09 | NUR ---
Pt. in bed awake, no s/sx of distress noted.
[2021-11-28] MEDS ORDERED: pantoprazole 40mg Tablet.DR PO SCH (08:00)
[2021-11-28] MEDS ORDERED: pyridoxine 50mg tablet PO SCH (08:00)
[2021-11-28] MEDS ORDERED: metoclopramide 10mg tablet PO SCH (08:00)
[2021-11-28] MEDS ORDERED: atorvastatin 20mg tablet PO SCH (08:00)
[2021-11-28] MEDS ORDERED: cholecalciferol (vitamin D3) 1,000 unit (25mcg) tablet PO SCH (08:00)
[2021-11-28] MEDS ORDERED: venlafaxine 25mg tablet PO SCH (08:00)
[2021-11-28] MEDS ORDERED: loratadine 10mg tablet PO SCH (08:00)
--- NOTE | 2021-11-28 09:09 | NUR ---
Pt. awake and eating breakfast in bed, no s/sx of distres noted.
--- NOTE | 2021-11-28 10:20 | NUR ---
Pt. [facility] at 1020 [facility], along qwith f/u appt. with [facility]. Pt. signed paperwork and received all her belongings. She ambulated off the unit without issue at 1020 and was met by support assistant near entrance to the ER.
[2021-11-28 10:24] VITALS: BP 158/85
[2021-11-28] MEDS ORDERED: lamoTRIgine 100mg tablet PO SCH (21:00)
[2021-11-28] MEDS ORDERED: traZODone 50mg tablet PO SCH ×2 (21:00)
[2021-12-13] MEDS ORDERED: paliperidone palmitate inj 234 MG/1.5 ML SYRINGE IM SCH (08:00)
== END 2021-11-28 10:20 | disposition home or self-care (01) ==
LOC: ER 20:54
DX: R45.851 Suicidal ideations (principal); Z20.822 Contact with and (suspected) exposure to COVID-19; R44.0 Auditory hallucinations; G43.909 Migraine, unspecified, not intractable, without status migrainosus; E78.00 Pure hypercholesterolemia, unspecified; J44.9 Chronic obstructive pulmonary disease, unspecified; G47.30 Sleep apnea, unspecified; E11.9 Type 2 diabetes mellitus without complications; G89.29 Other chronic pain; F41.9 Anxiety disorder, unspecified; F31.9 Bipolar disorder, unspecified; Z88.8 Allergy status to other drugs, medicaments and biological substances; Z79.899 Other long term (current) drug therapy; Z88.6 Allergy status to analgesic agent
CPT/HCPCS: 36415; 80053; 80305; 80320; 81001; 81025; 85025; 87635; 99285; C9803

== ENCOUNTER 2022-03-04 08:57 | Emergency (ER) | payer MEDICARE, MEDICAID ==
[~2022-03-04] VITALS: Ht 154.9 cm; Wt 138.0 kg
[~2022-03-04 08:57] MED LIST changes: -ACETAZOLAMIDE PO; +CHOL500050 PO; +DESV100T16 PO; -DESV50TA PO; +ETHI1TAB18 PO; +METO10TA3 PO; -NORG1TAB12 PO; +RISP0.5T65 PO; -RISP0.5T74 PO; -VIT1CAPS9 PO
[2022-03-04 10:12] VITALS: BP 149/97
[2022-03-04] MEDS ORDERED: PSEU-259 PO ×2 (10:21)
[2022-03-04] MEDS ORDERED: ALBU8HFA PO (10:32)
== END 2022-03-04 10:41 | disposition home or self-care (01) ==
LOC: ER 08:58
DX: R05.9 Cough, unspecified (principal); Z20.822 Contact with and (suspected) exposure to COVID-19; R68.83 Chills (without fever); R19.7 Diarrhea, unspecified; G43.909 Migraine, unspecified, not intractable, without status migrainosus; E78.00 Pure hypercholesterolemia, unspecified; J44.9 Chronic obstructive pulmonary disease, unspecified; G47.30 Sleep apnea, unspecified; K21.9 Gastro-esophageal reflux disease without esophagitis; E11.9 Type 2 diabetes mellitus without complications; G89.29 Other chronic pain; Z88.8 Allergy status to other drugs, medicaments and biological substances; Z79.899 Other long term (current) drug therapy; Z88.6 Allergy status to analgesic agent
CPT/HCPCS: 71045; 87635; 99284; C9803

== ENCOUNTER 2022-05-02 21:07 | Emergency (ER) | payer MEDICARE, MEDICAID ==
[~2022-05-02] VITALS: Ht 154.9 cm; Wt 140.9 kg
[2022-05-02 21:15] VITALS: BP 143/102
[2022-05-03] MEDS ORDERED: LIDO700A32 TOP (01:17)
[2022-05-03] MEDS ORDERED: CYCL-1 PO (01:17)
[2022-05-03] MEDS ORDERED: LIDOcaine 5% patch TP ONE (01:20)
[2022-05-03] MEDS ORDERED: ketorolac trometh inj. 60 MG/2 ML VIAL IM ONE (01:20)
[2022-05-03] MEDS ORDERED: orphenadrine citrate 60mg/2ml inj. IM ONE (01:20)
--- NOTE | 2022-05-03 01:33 | NUR ---
im x2 given topical applied
== END 2022-05-03 01:50 | disposition home or self-care (01) ==
LOC: ER 21:08
DX: M54.50 Low back pain, unspecified (principal); J44.9 Chronic obstructive pulmonary disease, unspecified; K21.9 Gastro-esophageal reflux disease without esophagitis; G89.29 Other chronic pain; F31.9 Bipolar disorder, unspecified; Z88.6 Allergy status to analgesic agent
CPT/HCPCS: 96372; 99284; J1885; J2360

== ENCOUNTER 2022-06-07 16:01 | Emergency (ER) | payer MEDICARE, MEDICAID ==
[~2022-06-07] VITALS: Ht 154.9 cm; Wt 142.7 kg
[~2022-06-07 16:01] MED LIST changes: +CYCL-1 PO; +LIDO700A32 TOP
[2022-06-07 16:20] VITALS: BP 144/113
[2022-06-07] MEDS ORDERED: diazepam 5mg tablet PO ONE (18:30)
== END 2022-06-07 20:16 | disposition home or self-care (01) ==
LOC: ER 16:01
DX: S29.012A Strain of muscle and tendon of back wall of thorax, initial encounter (principal); G43.909 Migraine, unspecified, not intractable, without status migrainosus; E78.00 Pure hypercholesterolemia, unspecified; J45.909 Unspecified asthma, uncomplicated; J44.9 Chronic obstructive pulmonary disease, unspecified; K21.9 Gastro-esophageal reflux disease without esophagitis; E11.9 Type 2 diabetes mellitus without complications; G89.29 Other chronic pain; M54.50 Low back pain, unspecified; F31.9 Bipolar disorder, unspecified; Z88.6 Allergy status to analgesic agent; X58.XXXA Exposure to other specified factors, initial encounter; Y93.89 Activity, other specified; Y92.89 Other specified places as the place of occurrence of the external cause; Y99.8 Other external cause status
CPT/HCPCS: 99283

== ENCOUNTER 2022-07-27 14:59 | Emergency (ER) | payer MEDICARE, MEDICAID ==
[~2022-07-27] VITALS: Ht 154.9 cm; Wt 141.4 kg
--- NOTE | 2022-07-27 15:49 | NUR ---
patient ambulated to bathroom, states she is unable to void at this time.
[2022-07-27 16:43] LABS: BASOPHILS % (AUTO) 0.3 % (0-1); EOSINOPHILS # (AUTO) 0.1 X10'3 (0-0.9); EOSINOPHILS % (AUTO) 0.9 % (0-6); HEMATOCRIT 43.9 % (35.0-45.0); HEMOGLOBIN 14.5 g/dl (12.0-16.0); LYMPHOCYTES % (AUTO) 15.9 % (21-51); MEAN PLATELET VOLUME 7.1 FL (7.4-10.4); MONOCYTES # (AUTO) 0.9 X10'3 (0-0.9); MONOCYTES % (AUTO) 7.2 % (2-12); NEUTROPHILS # (AUTO) 9.4 X10'3 (1.8-7.7); NEUTROPHILS % (AUTO) 75.7 % (42-75); PLATELET COUNT 314 X10'3 (140-440); RED BLOOD COUNT 5.16 X10'6 (4.20-5.60); RED CELL DISTRIBUTION WIDTH 14.1 % (11.5-14.5); WHITE BLOOD COUNT 12.4 X10'3 (4.5-11.0)
[2022-07-27 17:02] LABS: ALANINE AMINOTRANSFERASE 35 U/L (12-78); ALBUMIN 3.5 G/DL (3.4-5.0); ALBUMIN/GLOBULIN RATIO 0.8 (1.1-1.5); ALKALINE PHOSPHATASE 45 IU/L (46-116); ANION GAP 4 (8-16); ASPARTATE AMINO TRANSFERASE 19 U/L (10-37); BILIRUBIN,TOTAL 0.4 MG/DL (0.1-1.0); BLOOD UREA NITROGEN 8 MG/DL (7-18); BUN/CREATININE RATIO 11.8 (6.6-38.0); CHLORIDE 101 MMOL/L (99-107); CREATININE 0.68 MG/DL (0.40-0.90); GLUCOSE 146 MG/DL (70-104); POTASSIUM 3.6 MMOL/L (3.5-5.1); SODIUM 137 MMOL/L (135-145); TOTAL CARBON DIOXIDE 32.4 MMOL/L (24-32); TOTAL PROTEIN 7.9 G/DL (6.4-8.2); eGFR > 90 ML/MIN
[2022-07-27 17:13] LABS: ETHANOL < 0.010 GM/DL (0.0-0.010)
[2022-07-27 17:23] LABS: URINE HCG NEGATIVE (NEG)
[2022-07-27 17:34] LABS: CLARITY,URINE CLOUDY (Clear); COLOR,URINE YELLOW (Yellow); GLUCOSE, URINE NEGATIVE (Neg); KETONES,URINE NEGATIVE (Neg); LEUKOCYTE ESTERASE ,URINE SMALL (Neg); NITRITES, URINE NEGATIVE (Neg); OCCULT BLOOD,URINE SMALL (Neg); PH,URINE 5.5 (4.8-8.0); PROTEIN,URINE TRACE mg/dl (Neg); UROBILINOGEN,URINE 0.2 E.U/dL (0.2-1.0)
[2022-07-27 17:36] LABS: UA COLLECTION TYPE CLN CATCH MIDSTREAM
[2022-07-27 17:44] LABS: SQUAMOUS EPITHELIAL CELL,UR MANY /LPF (FEW)
[2022-07-27 17:45] LABS: BACTERIA,URINE 1+ /HPF (Neg); RBC,URINE 0-2 /HPF (0-2)
[2022-07-27 17:47] LABS: URINE AMPHETAMINE SCREEN NEGATIVE (Neg); URINE BARBITUATE SCREEN NEGATIVE (Neg); URINE BENZODIAZEPINES SCREEN NEGATIVE (Neg); URINE CANNABINOID SCREEN NEGATIVE (Neg); URINE COCAINE SCREEN NEGATIVE (Neg); URINE METHADONE SCREEN NEGATIVE (Neg); URINE OPIATE SCREEN NEGATIVE (Neg); URINE PHENCYCLIDINE SCREEN NEGATIVE (Neg)
[2022-07-27] MEDS ORDERED: nitrofuran monohydrate/nitrofuran macrocrysal 100 MG (MacroBID) capsule PO ONE (17:50)
[2022-07-27] MEDS ORDERED: TRAZ-251 PO (18:43)
[2022-07-27] MEDS ORDERED: METO10TA3 PO (18:43)
[2022-07-27] MEDS ORDERED: DESV100T PO (18:43)
[2022-07-27] MEDS ORDERED: fenofibrate PO (18:43)
[2022-07-27] MEDS ORDERED: ATOR80TA PO (18:43)
[2022-07-27] MEDS ORDERED: SPIR50TA5 PO (18:43)
[2022-07-27] MEDS ORDERED: GABA-530 PO (18:43)
[2022-07-27] MEDS ORDERED: LORA10TA7 PO (18:43)
[2022-07-27] MEDS ORDERED: LAMO100T65 PO (18:43)
[2022-07-27] MEDS ORDERED: METF-900 PO (18:43)
[2022-07-27] MEDS ORDERED: PANT20TA18 PO (18:43)
[2022-07-27] MEDS ORDERED: THO10T PO ×2 (18:43)
[2022-07-27] MEDS ORDERED: CYCL-394 PO (18:43)
[2022-07-27] MEDS ORDERED: DOCU-148 PO (18:43)
[2022-07-27] MEDS ORDERED: PALI234D IM (18:43)
--- NOTE | 2022-07-27 19:00 | NUR ---
PACKET SENT TO [facility]
--- NOTE | 2022-07-27 19:09 | NUR ---
The patient moved to bed 25 from the main ER. She is very cooperative. Her affect is flat and she reports frequent auditory hallucinations telling derogatory things and to kill herself with a knife. She stated that she really doesn't want to . She stated that she has been increasingly depressed and sad over the holidays due to lack of family contact/support. She [facility] a [facility] of [facility]. She is a client of [facility]. She reports she has been compliant with her medications.
[2022-07-27] MEDS ORDERED: albuterol 2.5 MG/3 ML nebule NEB PRN (19:15)
[2022-07-27] MEDS ORDERED: acetaminophen 325mg tablet PO PRN (19:15)
[2022-07-27] MEDS ORDERED: docusate sod 100mg capsule PO SCH (20:00)
[2022-07-27] MEDS ORDERED: spironolactone 50 MG tablet PO SCH (20:00)
[2022-07-27] MEDS ORDERED: cyclobenzaprine 10mg tablet PO PRN (20:10)
[2022-07-27] MEDS ORDERED: LAMOTRIGINE 100 MG PO SCH (21:00)
[2022-07-27] MEDS ORDERED: lamoTRIgine 100mg tablet PO SCH (21:00)
[2022-07-27] MEDS ORDERED: atorvastatin 20mg tablet PO SCH (21:00)
[2022-07-27] MEDS ORDERED: gabapentin 100mg capsule PO SCH (21:00)
[2022-07-27] MEDS ORDERED: chlorproMAZINE 25mg tablet PO SCH ×2 (21:00)
[2022-07-27] MEDS ORDERED: traZODone 50mg tablet PO SCH (21:00)
--- NOTE | 2022-07-27 22:29 | NUR ---
The patient appears to be sleeping
--- NOTE | 2022-07-27 23:51 | NUR ---
The patient appears to be sleeping
[2022-07-28] MEDS ORDERED: cyclobenzaprine 10mg tablet PO SCH
--- NOTE | 2022-07-28 01:56 | NUR ---
The patient appears to be sleeping
--- NOTE | 2022-07-28 03:44 | NUR ---
The patient appears to be sleeping
--- NOTE | 2022-07-28 05:30 | NUR ---
The patient appears to be sleeping
[2022-07-28 06:18] VITALS: BP 122/61
[2022-07-28] MEDS ORDERED: metoclopramide 10mg tablet PO SCH (07:00)
[2022-07-28] MEDS ORDERED: metFORMIN 500mg tablet PO SCH (07:30)
[2022-07-28] MEDS ORDERED: fenofibrate 48mg tablet PO SCH (08:00)
[2022-07-28] MEDS ORDERED: pyridoxine 50mg tablet PO SCH (08:00)
[2022-07-28] MEDS ORDERED: venlafaxine 25mg tablet PO SCH (08:00)
[2022-07-28] MEDS ORDERED: pantoprazole 40mg Tablet.DR PO SCH (08:00)
[2022-07-28] MEDS ORDERED: loratadine 10mg tablet PO SCH (08:00)
[2022-07-28] MEDS ORDERED: NITR100C11 PO (10:08)
[2022-07-31] MEDS ORDERED: paliperidone palmitate inj 234 MG/1.5 ML SYRINGE IM SCH (10:00)
[2022-08-03] MEDS ORDERED: nitrofuran monohydrate/nitrofuran macrocrysal 100 MG (MacroBID) capsule PO SCH (20:00)
== END 2022-07-28 10:29 | disposition home or self-care (01) ==
LOC: ER 15:00
DX: R45.851 Suicidal ideations (principal); Z20.822 Contact with and (suspected) exposure to COVID-19; R44.0 Auditory hallucinations; N39.0 Urinary tract infection, site not specified; G43.909 Migraine, unspecified, not intractable, without status migrainosus; E78.00 Pure hypercholesterolemia, unspecified; J44.9 Chronic obstructive pulmonary disease, unspecified; K21.9 Gastro-esophageal reflux disease without esophagitis; E11.9 Type 2 diabetes mellitus without complications; G89.29 Other chronic pain; F41.9 Anxiety disorder, unspecified; F32.A Depression, unspecified; Z98.890 Other specified postprocedural states; Z88.6 Allergy status to analgesic agent; Z79.899 Other long term (current) drug therapy
CPT/HCPCS: 36415; 80053; 80305; 80320; 81001; 81025; 84443; 85025; 87811; 99285; Q0161

== ENCOUNTER 2022-09-15 10:02 | Emergency (ER) | payer MEDICARE, MEDICAID ==
[~2022-09-15] VITALS: Ht 154.9 cm; Wt 142.0 kg
[~2022-09-15 10:02] MED LIST changes: -ATOR20TA66 PO; +ATOR80TA PO; -CHOL500050 PO; -CYCL-1 PO; +CYCL-394 PO; +DESV100T PO; -DESV100T16 PO; +DOCU-148 PO; -ETHI1TAB18 PO; +GABA-530 PO; -LIDO700A32 TOP; +METF-900 PO; +NITR100C11 PO; +PANT20TA18 PO; -PANT40TA54 PO; -RISP0.5T65 PO; +SPIR50TA5 PO; +THO10T PO; -TRAZ-256 PO; +fenofibrate PO
[2022-09-15 15:30] LABS: BASOPHILS % (AUTO) 0.3 % (0-1); EOSINOPHILS # (AUTO) 0.1 X10'3 (0-0.9); EOSINOPHILS % (AUTO) 0.9 % (0-6); HEMATOCRIT 45.1 % (35.0-45.0); HEMOGLOBIN 14.9 g/dl (12.0-16.0); LYMPHOCYTES # (AUTO) 2.5 X10'3 (1.1-4.8); LYMPHOCYTES % (AUTO) 21.4 % (21-51); MEAN CORPUSCULAR HEMOGLOBIN 28.3 PG (27.0-31.0); MEAN CORPUSCULAR VOLUME 85.8 FL (78-98); MEAN PLATELET VOLUME 6.9 FL (7.4-10.4); MONOCYTES # (AUTO) 0.7 X10'3 (0-0.9); MONOCYTES % (AUTO) 6.3 % (2-12); NEUTROPHILS # (AUTO) 8.4 X10'3 (1.8-7.7); NEUTROPHILS % (AUTO) 71.1 % (42-75); PLATELET COUNT 308 X10'3 (140-440); RED BLOOD COUNT 5.25 X10'6 (4.20-5.60); RED CELL DISTRIBUTION WIDTH 14.3 % (11.5-14.5); WHITE BLOOD COUNT 11.9 X10'3 (4.5-11.0)
[2022-09-15 15:44] LABS: ALANINE AMINOTRANSFERASE 30 U/L (12-78); ALBUMIN 3.6 G/DL (3.4-5.0); ALBUMIN/GLOBULIN RATIO 0.8 (1.1-1.5); ALKALINE PHOSPHATASE 54 IU/L (46-116); ANION GAP 7 (8-16); ASPARTATE AMINO TRANSFERASE 14 U/L (10-37); BILIRUBIN,TOTAL 0.4 MG/DL (0.1-1.0); BLOOD UREA NITROGEN 7 MG/DL (7-18); BUN/CREATININE RATIO 8.9 (6.6-38.0); CALCIUM 9.4 MG/DL (8.5-10.1); CHLORIDE 100 MMOL/L (99-107); CREATININE 0.79 MG/DL (0.40-0.90); GLUCOSE 105 MG/DL (70-104); POTASSIUM 3.7 MMOL/L (3.5-5.1); SODIUM 141 MMOL/L (135-145); TOTAL CARBON DIOXIDE 33.6 MMOL/L (24-32); TOTAL PROTEIN 8.2 G/DL (6.4-8.2); eGFR 82 ML/MIN
[2022-09-15 15:55] LABS: ETHANOL < 0.010 GM/DL (0.0-0.010)
--- NOTE | 2022-09-15 16:05 | NUR ---
Pt. ambulated over from the main ER accompainied by staff. She changed into green scrubs and belongings were inventoried.
--- NOTE | 2022-09-15 17:09 | NUR ---
A urine sample was obtained and sent to lab. Pt. is currently on her period so urine is discolored.
[2022-09-15 17:17] LABS: URINE HCG NEGATIVE (NEG)
[2022-09-15 17:25] LABS: CLARITY,URINE CLOUDY (Clear); GLUCOSE, URINE NEGATIVE (Neg); KETONES,URINE NEGATIVE (Neg); LEUKOCYTE ESTERASE ,URINE TRACE (Neg); OCCULT BLOOD,URINE LARGE (Neg); PH,URINE 5.5 (4.8-8.0); PROTEIN,URINE TRACE mg/dl (Neg); UROBILINOGEN,URINE 0.2 E.U/dL (0.2-1.0)
[2022-09-15 17:28] LABS: UA COLLECTION TYPE CLN CATCH MIDSTREAM
[2022-09-15 17:29] LABS: COLOR,URINE PINK (Yellow); NITRITES, URINE NEGATIVE (Neg)
[2022-09-15 17:30] LABS: URINE AMPHETAMINE SCREEN NEGATIVE (Neg); URINE BARBITUATE SCREEN NEGATIVE (Neg); URINE BENZODIAZEPINES SCREEN NEGATIVE (Neg); URINE CANNABINOID SCREEN NEGATIVE (Neg); URINE COCAINE SCREEN NEGATIVE (Neg); URINE METHADONE SCREEN NEGATIVE (Neg); URINE OPIATE SCREEN NEGATIVE (Neg); URINE PHENCYCLIDINE SCREEN NEGATIVE (Neg)
[2022-09-15] MEDS ORDERED: SPIR50TA PO (17:43)
[2022-09-15] MEDS ORDERED: LAMO100T2 PO (17:43)
[2022-09-15] MEDS ORDERED: THO10T PO ×2 (17:43)
[2022-09-15] MEDS ORDERED: TRAZ-251 PO (17:43)
[2022-09-15] MEDS ORDERED: GABA-530 PO (17:43)
[2022-09-15] MEDS ORDERED: PANT20TA18 PO (17:43)
[2022-09-15] MEDS ORDERED: DESV100T PO (17:43)
[2022-09-15] MEDS ORDERED: METF-900 PO (17:43)
[2022-09-15] MEDS ORDERED: ATOR80TA PO (17:43)
[2022-09-15 17:44] LABS: BACTERIA,URINE FEW /HPF (Neg); RBC,URINE TNTC /HPF (0-2); SQUAMOUS EPITHELIAL CELL,UR FEW /LPF (FEW); WBC,URINE 0-4 /HPF (0-4)
[2022-09-15] MEDS ORDERED: FENO54TA4 PO (17:55)
--- NOTE | 2022-09-15 18:05 | NUR ---
Pt. up to use the BR at this time, she walks with a steady gait.
[2022-09-15] MEDS: gabapentin 100mg capsule PO SCH (20:20)
[2022-09-15] MEDS: spironolactone 50 MG tablet PO SCH (20:20)
--- NOTE | 2022-09-15 20:27 | NUR ---
PM medications given, no complaints or distress noted at this time. Pt ambulated to bathroom w/o difficulty at this time.
[2022-09-15] MEDS ORDERED: traZODone 50mg tablet PO SCH (21:00)
[2022-09-15] MEDS ORDERED: lamoTRIgine 100mg tablet PO SCH (21:00)
--- NOTE | 2022-09-15 22:48 | NUR ---
pt ambulated to and back from bathroom w/o difficulty, warm blanket given
[2022-09-16] MEDS ORDERED: acetaminophen 325mg tablet PO ONE (02:20)
--- NOTE | 2022-09-16 02:39 | NUR ---
0215 pt c/o headache, Dr Del Toro notified, order recived.
--- NOTE | 2022-09-16 02:43 | NUR ---
[facility] mental health packet faxed at [phone]
--- NOTE | 2022-09-16 06:30 | NUR ---
RN received pt. asleep on her right side in bed. Normal R&R of respirations, rate of 16. Pt. in no apparent distress.
[2022-09-16] MEDS: pantoprazole 40mg Tablet.DR PO SCH (08:19)
[2022-09-16] MEDS: gabapentin 100mg capsule PO SCH ×3 (08:19→21:00)
[2022-09-16] MEDS: venlafaxine 25mg tablet PO SCH ×3 (08:19→21:00)
[2022-09-16] MEDS: spironolactone 50 MG tablet PO SCH ×2 (08:19→20:00)
--- NOTE | 2022-09-16 08:30 | NUR ---
Pt. awoke and eating breakfast. 1:1 done at bedside, pt.reports SI with plan to OD on medication. Pt. reports previous suicide attempt by OD on her medications. Pt. reports hearing voices that tell her to hurt herself. Pt. reports increased symptoms of sadness the last 2 weeks with the holidays. Pt. states, "my mom in September and my dad this past February. Pt. reports her roommate is a good friend and supports her and encouraged her to come to the hospital and get help.
--- NOTE | 2022-09-16 08:57 | NUR ---
[facility] SENT PACKET TO [facility]
--- NOTE | 2022-09-16 10:30 | NUR ---
Pt. asleep in her right side. Normal R&R of respirations, rate of 16.
--- NOTE | 2022-09-16 12:30 | NUR ---
Pt. awake and resting on her right side. Pt. in no apparent distress.
--- NOTE | 2022-09-16 14:30 | NUR ---
Pt. asleep on her right side, normal R&R of respirations observed. Rate of 18.
--- NOTE | 2022-09-16 15:00 | NUR ---
Pt. seen by [facility] social sciences professor. RN informed that pt. will not be placed on a hold.
--- NOTE | 2022-09-16 16:30 | NUR ---
Pt. awake and resting on her left side. Pt. in no apparent distress.
--- NOTE | 2022-09-16 18:30 | NUR ---
Assumed patient care. Patient is sleeping quietly on her left side. The patient ate her dinner prior to this RN arriving for [facility].
--- NOTE | 2022-09-16 19:32 | NUR ---
Patient remains sleeping. She has repositioned herself in bed, no distress. In view from nurses station.
[2022-09-16] MEDS: metFORMIN 500mg tablet PO SCH (20:00)
--- NOTE | 2022-09-16 21:12 | NUR ---
Patient is sleeping prone in bed. She has self repositioned.
--- NOTE | 2022-09-16 22:33 | NUR ---
Patient accepted to [facility]. [facility] transport will draft roller picker and transfer patient around 0830 hours in the AM. The accecpting Doctor will be Nichelle Flanagan. Unit 600. Call nurse to nurse just prior to transfer. [phone]
--- NOTE | 2022-09-16 23:30 | NUR ---
Patient sleeping in a low fowlers position. No distress.
--- NOTE | 2022-09-17 02:25 | NUR ---
Patient has repositioned onto her left side. She continues to sleep quietly.
--- NOTE | 2022-09-17 03:40 | NUR ---
Patient is sleeping quietly. She has repositioned onto her right side.
--- NOTE | 2022-09-17 03:42 | NUR ---
Gordon miles in [facility] - 09/17/22 at 0343 by ANNALEE Patient is sleeping quietly now. No distress.
--- NOTE | 2022-09-17 04:51 | NUR ---
Patient is sleeping quietly, no distress.
--- NOTE | 2022-09-17 05:56 | NUR ---
Patient sleeping quietly, she has self repositioned.
[2022-09-17 06:14] VITALS: BP 118/92
--- NOTE | 2022-09-17 06:46 | NUR ---
Patient sleeping on left side. No distress observed. Continue to monitor.
[2022-09-17] MEDS: pantoprazole 40mg Tablet.DR PO SCH (08:00)
[2022-09-17] MEDS: metFORMIN 500mg tablet PO SCH (08:14)
[2022-09-17] MEDS: spironolactone 50 MG tablet PO SCH (08:15)
[2022-09-17] MEDS: gabapentin 100mg capsule PO SCH (08:15)
[2022-09-17] MEDS: venlafaxine 25mg tablet PO SCH (08:15)
--- NOTE | 2022-09-17 09:05 | NUR ---
Patient eating breakfast. No distress observed. [facility] airport driver waiting for patient to eat and get dressed to go to [facility].
== END 2022-09-17 09:40 | disposition hospice, inpatient (51) ==
LOC: ER 10:02
DX: R45.851 Suicidal ideations (principal); Z20.822 Contact with and (suspected) exposure to COVID-19; G43.909 Migraine, unspecified, not intractable, without status migrainosus; I11.9 Hypertensive heart disease without heart failure; J44.9 Chronic obstructive pulmonary disease, unspecified; K21.9 Gastro-esophageal reflux disease without esophagitis; E11.9 Type 2 diabetes mellitus without complications; G89.29 Other chronic pain; M54.9 Dorsalgia, unspecified; F31.9 Bipolar disorder, unspecified; Z88.5 Allergy status to narcotic agent; Z88.6 Allergy status to analgesic agent; Z79.899 Other long term (current) drug therapy; Z79.1 Long term (current) use of non-steroidal anti-inflammatories (NSAID)
CPT/HCPCS: 36415; 80053; 80305; 80320; 81001; 81025; 82948; 84443; 85025; 87811; 99285

== ENCOUNTER 2022-11-03 16:11 | Emergency (ER) | payer MEDICARE, MEDICAID ==
[~2022-11-03] VITALS: Ht 154.9 cm; Wt 137.7 kg
[~2022-11-03 16:11] MED LIST changes: -ACET-1131 PO; -ALBU18HF2 INH; -CYCL-394 PO; -DOCU-148 PO; +FENO54TA4 PO; +LAMO100T2 PO; -LAMO100T65 PO; -LORA10TA7 PO; -METO10TA3 PO; -NITR100C11 PO; -PALI234D IM; -PYRI-3 PO; +SPIR50TA PO; -SPIR50TA5 PO; -fenofibrate PO
[2022-11-03 17:37] VITALS: BP 130/97
== END 2022-11-03 17:41 | disposition home or self-care (01) ==
LOC: ER 16:11
DX: M79.651 Pain in right thigh (principal); M79.652 Pain in left thigh; G43.909 Migraine, unspecified, not intractable, without status migrainosus; E78.00 Pure hypercholesterolemia, unspecified; J45.909 Unspecified asthma, uncomplicated; J44.9 Chronic obstructive pulmonary disease, unspecified; K21.9 Gastro-esophageal reflux disease without esophagitis; E11.9 Type 2 diabetes mellitus without complications; G89.29 Other chronic pain; M54.50 Low back pain, unspecified; F31.9 Bipolar disorder, unspecified; Z88.6 Allergy status to analgesic agent; Z88.8 Allergy status to other drugs, medicaments and biological substances
CPT/HCPCS: 99282

== ENCOUNTER 2022-11-24 15:09 | Emergency (ER) | payer MEDICARE, MEDICAID ==
[~2022-11-24] VITALS: Ht 165.1 cm; Wt 137.0 kg
[2022-11-24 16:19] LABS: BASOPHILS % (AUTO) 0.4 % (0-1); EOSINOPHILS # (AUTO) 0.1 X10'3 (0-0.9); EOSINOPHILS % (AUTO) 1.2 % (0-6); HEMATOCRIT 43.9 % (35.0-45.0); HEMOGLOBIN 14.5 g/dl (12.0-16.0); LYMPHOCYTES # (AUTO) 2.5 X10'3 (1.1-4.8); LYMPHOCYTES % (AUTO) 19.7 % (21-51); MEAN CORPUSCULAR HEMOGLOBIN 28.5 PG (27.0-31.0); MEAN CORPUSCULAR HGB CONC 32.9 g/dL (33.0-36.5); MEAN CORPUSCULAR VOLUME 86.4 FL (78-98); MEAN PLATELET VOLUME 6.9 FL (7.4-10.4); MONOCYTES # (AUTO) 0.6 X10'3 (0-0.9); MONOCYTES % (AUTO) 4.6 % (2-12); NEUTROPHILS # (AUTO) 9.2 X10'3 (1.8-7.7); NEUTROPHILS % (AUTO) 74.1 % (42-75); PLATELET COUNT 328 X10'3 (140-440); RED BLOOD COUNT 5.08 X10'6 (4.20-5.60); RED CELL DISTRIBUTION WIDTH 14.9 % (11.5-14.5); WHITE BLOOD COUNT 12.4 X10'3 (4.5-11.0)
[2022-11-24 16:35] LABS: ANION GAP 5 (8-16); BILIRUBIN,TOTAL 0.4 MG/DL (0.1-1.0); BLOOD UREA NITROGEN 9 MG/DL (7-18); BUN/CREATININE RATIO 10.8 (6.6-38.0); CALCIUM 9.4 MG/DL (8.5-10.1); CHLORIDE 98 MMOL/L (99-107); CREATININE 0.83 MG/DL (0.40-0.90); GLUCOSE 173 MG/DL (70-104); POTASSIUM 3.4 MMOL/L (3.5-5.1); SODIUM 135 MMOL/L (135-145); TOTAL CARBON DIOXIDE 32.2 MMOL/L (24-32); eGFR 78 ML/MIN
[2022-11-24 16:36] LABS: ALANINE AMINOTRANSFERASE 34 U/L (12-78); ALBUMIN 3.7 G/DL (3.4-5.0); ALBUMIN/GLOBULIN RATIO 0.8 (1.1-1.5); ALKALINE PHOSPHATASE 48 IU/L (46-116); ASPARTATE AMINO TRANSFERASE 17 U/L (10-37); TOTAL PROTEIN 8.1 G/DL (6.4-8.2)
[2022-11-24 16:41] LABS: ETHANOL < 0.010 GM/DL (0.0-0.010)
[2022-11-24 16:52] LABS: URINE HCG NEGATIVE (NEG)
[2022-11-24 16:53] LABS: CLARITY,URINE CLOUDY (Clear); COLOR,URINE YELLOW (Yellow); GLUCOSE, URINE NEGATIVE (Neg); KETONES,URINE NEGATIVE (Neg); LEUKOCYTE ESTERASE ,URINE TRACE (Neg); NITRITES, URINE NEGATIVE (Neg); OCCULT BLOOD,URINE MODERATE (Neg); PH,URINE 6.5 (4.8-8.0); PROTEIN,URINE NEGATIVE (Neg)
[2022-11-24 16:58] LABS: UA COLLECTION TYPE CLN CATCH MIDSTREAM
[2022-11-24 17:04] LABS: MUCUS STRANDS MODERATE /LPF (Neg); SQUAMOUS EPITHELIAL CELL,UR MODERATE /LPF (FEW); TRANSITIONAL EPI CELLS,URINE FEW /HPF
[2022-11-24 17:05] LABS: BACTERIA,URINE 2+ /HPF (Neg)
[2022-11-24 17:28] LABS: URINE AMPHETAMINE SCREEN NEGATIVE (Neg); URINE BARBITUATE SCREEN NEGATIVE (Neg); URINE BENZODIAZEPINES SCREEN NEGATIVE (Neg); URINE CANNABINOID SCREEN NEGATIVE (Neg); URINE COCAINE SCREEN NEGATIVE (Neg); URINE METHADONE SCREEN NEGATIVE (Neg); URINE OPIATE SCREEN NEGATIVE (Neg); URINE PHENCYCLIDINE SCREEN NEGATIVE (Neg)
[2022-11-24] MEDS ORDERED: CHLO50TA52 PO (19:38)
[2022-11-24] MEDS ORDERED: CHLO100T7 PO (19:53)
[2022-11-24] MEDS ORDERED: PANT20TA18 PO (19:56)
--- NOTE | 2022-11-24 20:12 | NUR ---
Patient tells this field underwriter that she has been feeling suicidal and has a plan to overdose on medications or cut her wrists. Patient states that she hears voices telling her to hurt herself. Patient states she is experiencing visual hallucinations of her family as shadow like figures.
[2022-11-24] MEDS ORDERED: chlorproMAZINE 25mg tablet PO PRN (20:15)
--- NOTE | 2022-11-24 20:17 | NUR ---
Patient is given a sandwich and water. She has been changed into green scrubs. Patient is cooperative. She is in direct sight from the nurses station.
[2022-11-24] MEDS: gabapentin 100mg capsule PO SCH (20:41)
--- NOTE | 2022-11-24 20:43 | NUR ---
faxed packet to [facility]
[2022-11-24] MEDS ORDERED: lamoTRIgine 100mg tablet PO SCH (21:00)
[2022-11-24] MEDS ORDERED: traZODone 50mg tablet PO SCH (21:00)
--- NOTE | 2022-11-24 21:15 | NUR ---
Patient is compliant with nightime medications, she returns to sleep.
--- NOTE | 2022-11-24 22:32 | NUR ---
Patient is sleeping quietly on her right side. No sistress
--- NOTE | 2022-11-24 23:58 | NUR ---
Patient is sleeping quietly in a prone position.
--- NOTE | 2022-11-25 01:09 | NUR ---
Patient is sleeping on her right side. No distress.
--- NOTE | 2022-11-25 03:14 | NUR ---
Patient is sleeping quietly in her right side.
--- NOTE | 2022-11-25 04:07 | NUR ---
Patient is sleeping on her right side. No distress.
--- NOTE | 2022-11-25 04:28 | NUR ---
Patient is up to bathroom and then back to bed. No distress.
--- NOTE | 2022-11-25 06:30 | NUR ---
Assumed care of patient. Pt resting comfortably, rr even and unlabored.
[2022-11-25] MEDS ORDERED: pantoprazole 40mg Tablet.DR PO SCH (07:30)
[2022-11-25] MEDS ORDERED: METFORMIN HCL 500 MG PO SCH (07:30)
[2022-11-25] MEDS ORDERED: spironolactone 50 MG tablet PO SCH (08:00)
--- NOTE | 2022-11-25 08:00 | NUR ---
Pt awake eating breakfast. Pt then ambulated to bathroom, gait even and steady.
[2022-11-25] MEDS: metFORMIN 500mg tablet PO SCH ×2 (08:26→17:33)
[2022-11-25] MEDS: gabapentin 100mg capsule PO SCH ×2 (08:26→12:48)
[2022-11-25] MEDS: chlorproMAZINE 25mg tablet PO SCH ×2 (08:27→12:49)
[2022-11-25] MEDS: venlafaxine 25mg tablet PO SCH ×2 (08:28→12:49)
--- NOTE | 2022-11-25 10:00 | NUR ---
One to one with patient to assess suicidal thoughts. Pt was sleepnig on greeting. Pt continues to endorese AH "yelling at me to cut myself." VH are shadows pt sees on the wall. Regarding suicidal thoughts pt states "a little bit." Pt is quiet and sleeps during meals. Pt is able to make needs known. No behaviors to report.
--- NOTE | 2022-11-25 12:00 | NUR ---
Pt awake eating breakfast. Addendum: 11/25/22 at 1403 by PATRICIA Awake eating lunch.
--- NOTE | 2022-11-25 14:39 | NUR ---
Patient continues to rest comfortably. Pt told creative writer she sleeps a lot at home.
--- NOTE | 2022-11-25 16:58 | NUR ---
Pt was accepted at [facility]. ETA 1740.
--- NOTE | 2022-11-25 17:19 | NUR ---
NURSE TO NURSE WITH VEN[facility]. ETA FOR LINKER UP [id number].
--- NOTE | 2022-11-25 17:40 | NUR ---
Pt sitting at bedside eating dinner.
[2022-11-25 18:35] VITALS: BP 130/95
== END 2022-11-25 18:05 ==
LOC: ER 15:09
DX: F32.A Depression, unspecified (principal); Z20.822 Contact with and (suspected) exposure to COVID-19; R45.851 Suicidal ideations; F25.0 Schizoaffective disorder, bipolar type; G43.909 Migraine, unspecified, not intractable, without status migrainosus; E78.00 Pure hypercholesterolemia, unspecified; J44.9 Chronic obstructive pulmonary disease, unspecified; K21.9 Gastro-esophageal reflux disease without esophagitis; E11.9 Type 2 diabetes mellitus without complications; G89.29 Other chronic pain; M54.50 Low back pain, unspecified; Z88.6 Allergy status to analgesic agent
CPT/HCPCS: 36415; 80053; 80305; 80320; 81001; 81025; 84443; 85025; 87811; 99285; Q0161

== ENCOUNTER 2023-04-02 11:17 | Emergency (ER) | payer BC, MEDICAID ==
[~2023-04-02] VITALS: Ht 154.9 cm; Wt 138.6 kg
[~2023-04-02 11:17] MED LIST changes: -ATOR80TA PO; +CHLO100T7 PO; +CHLO50TA52 PO; -THO10T PO
[2023-04-02 11:21] VITALS: BP 166/101
[2023-04-02] MEDS ORDERED: diphenhydrAMINE 50 mg/ml inj IM ONE (13:55)
[2023-04-02] MEDS ORDERED: proCHLORperazine 10 MG/2 ml inj IM ONE (13:55)
[2023-04-02] MEDS ORDERED: ketorolac trometh. 30mg/ml inj. IM ONE (13:55)
[2023-04-02] MEDS ORDERED: normal saline 1000ml 1,000 ML IV ONE ×2 (15:35)
[2023-04-02] MEDS ORDERED: LORazepam 2 mg/ml vial IV ONE (15:35)
[2023-04-02] MEDS ORDERED: morphine 4 MG/ML inj SYRINge IV STA (17:25)
== END 2023-04-02 17:53 | disposition home or self-care (01) ==
LOC: ER 11:18
DX: G43.909 Migraine, unspecified, not intractable, without status migrainosus (principal); J44.9 Chronic obstructive pulmonary disease, unspecified; K21.9 Gastro-esophageal reflux disease without esophagitis; E11.9 Type 2 diabetes mellitus without complications; F31.9 Bipolar disorder, unspecified; Z88.6 Allergy status to analgesic agent
CPT/HCPCS: 96372; 96374; 96375; 99284; J0780; J1200; J2060; J2270; J7030

== ENCOUNTER 2023-04-10 12:11 | Emergency (ER) | payer BC, MEDICAID ==
[~2023-04-10] VITALS: Ht 154.9 cm; Wt 138.6 kg
[2023-04-10 13:01] VITALS: BP 145/103
[2023-04-10 14:08] LABS: BASOPHILS # (AUTO) 0.1 X10'3 (0-0.2); BASOPHILS % (AUTO) 0.5 % (0-1); EOSINOPHILS # (AUTO) 0.2 X10'3 (0-0.9); HEMATOCRIT 45.5 % (35.0-45.0); HEMOGLOBIN 14.7 g/dl (12.0-16.0); LYMPHOCYTES # (AUTO) 2.4 X10'3 (1.1-4.8); LYMPHOCYTES % (AUTO) 15.3 % (21-51); MEAN CORPUSCULAR HEMOGLOBIN 27.6 PG (27.0-31.0); MEAN CORPUSCULAR HGB CONC 32.3 g/dL (33.0-36.5); MEAN CORPUSCULAR VOLUME 85.6 FL (78-98); MEAN PLATELET VOLUME 7.2 FL (7.4-10.4); MONOCYTES # (AUTO) 0.9 X10'3 (0-0.9); NEUTROPHILS % (AUTO) 77.2 % (42-75); PLATELET COUNT 390 X10'3 (140-440); RED BLOOD COUNT 5.32 X10'6 (4.20-5.60); RED CELL DISTRIBUTION WIDTH 14.4 % (11.5-14.5); WHITE BLOOD COUNT 15.6 X10'3 (4.5-11.0)
[2023-04-10 14:23] LABS: ALANINE AMINOTRANSFERASE 38 U/L (12-78); ALBUMIN 3.8 G/DL (3.4-5.0); ALBUMIN/GLOBULIN RATIO 0.8 (1.1-1.5); ALKALINE PHOSPHATASE 56 IU/L (46-116); ANION GAP 11 (8-16); ASPARTATE AMINO TRANSFERASE 24 U/L (10-37); BILIRUBIN,TOTAL 0.6 MG/DL (0.1-1.0); BLOOD UREA NITROGEN 12 MG/DL (7-18); BUN/CREATININE RATIO 15.2 (10.0-20.0); CHLORIDE 100 MMOL/L (99-107); CREATININE 0.79 MG/DL (0.40-0.90); GLUCOSE 101 MG/DL (70-104); POTASSIUM 4.1 MMOL/L (3.5-5.1); SODIUM 137 MMOL/L (135-145); TOTAL CARBON DIOXIDE 25.6 MMOL/L (24-32); TOTAL PROTEIN 8.4 G/DL (6.4-8.2); eGFR 82 ML/MIN
[2023-04-10] MEDS ORDERED: ONDA4TAB12 PO (14:38)
[2023-04-10] MEDS ORDERED: SUMA100T16 PO (14:38)
[2023-04-10] MEDS ORDERED: SUMAtriptan 25 MG tablet PO ONE (14:40)
[2023-04-10] MEDS ORDERED: ketorolac trometh inj. 60 MG/2 ML VIAL IM ONE (14:46)
== END 2023-04-10 15:15 | disposition home or self-care (01) ==
LOC: ER 12:11
DX: G43.909 Migraine, unspecified, not intractable, without status migrainosus (principal); E78.00 Pure hypercholesterolemia, unspecified; J44.9 Chronic obstructive pulmonary disease, unspecified; K21.9 Gastro-esophageal reflux disease without esophagitis; G89.29 Other chronic pain; M54.9 Dorsalgia, unspecified; F31.9 Bipolar disorder, unspecified; F20.9 Schizophrenia, unspecified; Z88.5 Allergy status to narcotic agent; Z88.6 Allergy status to analgesic agent; Z79.899 Other long term (current) drug therapy
CPT/HCPCS: 36415; 70450; 80053; 85025; 96372; 99285; J1885

== ENCOUNTER 2023-04-20 13:18 | Emergency (ER) | payer BC, MEDICAID ==
[~2023-04-20] VITALS: Ht 154.9 cm; Wt 152.0 kg
[~2023-04-20 13:18] MED LIST changes: +ONDA4TAB12 PO; +SUMA100T16 PO
[2023-04-20 13:49] VITALS: BP 191/117
[2023-04-20] MEDS ORDERED: ACET-38 PO (15:32)
== END 2023-04-20 15:43 | disposition home or self-care (01) ==
LOC: ER 13:25
DX: K08.89 Other specified disorders of teeth and supporting structures (principal); E78.00 Pure hypercholesterolemia, unspecified; J45.909 Unspecified asthma, uncomplicated; J44.9 Chronic obstructive pulmonary disease, unspecified; K21.9 Gastro-esophageal reflux disease without esophagitis; E11.9 Type 2 diabetes mellitus without complications; G89.29 Other chronic pain; M54.9 Dorsalgia, unspecified; F31.9 Bipolar disorder, unspecified; F20.9 Schizophrenia, unspecified; G43.909 Migraine, unspecified, not intractable, without status migrainosus; Z88.6 Allergy status to analgesic agent; Z79.899 Other long term (current) drug therapy; Z88.8 Allergy status to other drugs, medicaments and biological substances
CPT/HCPCS: 99282; 99283

== ENCOUNTER 2023-05-14 10:18 | Emergency (ER) | payer BC, MEDICAID ==
[~2023-05-14] VITALS: Ht 154.9 cm; Wt 142.7 kg
[~2023-05-14 10:18] MED LIST changes: +ACET-38 PO
[2023-05-14] MEDS ORDERED: OLANZapine 5mg rapidly disint. tablet PO ONE (12:10)
[2023-05-14 12:30] LABS: BASOPHILS # (AUTO) 0.1 X10'3 (0-0.2); BASOPHILS % (AUTO) 0.4 % (0-1); EOSINOPHILS # (AUTO) 0.1 X10'3 (0-0.9); HEMATOCRIT 43.7 % (35.0-45.0); HEMOGLOBIN 14.1 g/dl (12.0-16.0); LYMPHOCYTES # (AUTO) 1.9 X10'3 (1.1-4.8); LYMPHOCYTES % (AUTO) 15.6 % (21-51); MEAN CORPUSCULAR HEMOGLOBIN 28.2 PG (27.0-31.0); MEAN CORPUSCULAR HGB CONC 32.4 g/dL (33.0-36.5); MONOCYTES # (AUTO) 0.7 X10'3 (0-0.9); MONOCYTES % (AUTO) 5.8 % (2-12); NEUTROPHILS # (AUTO) 9.6 X10'3 (1.8-7.7); NEUTROPHILS % (AUTO) 77.2 % (42-75); PLATELET COUNT 317 X10'3 (140-440); RED BLOOD COUNT 5.02 X10'6 (4.20-5.60); RED CELL DISTRIBUTION WIDTH 14.8 % (11.5-14.5); WHITE BLOOD COUNT 12.4 X10'3 (4.5-11.0)
[2023-05-14 13:16] LABS: ALANINE AMINOTRANSFERASE 27 U/L (12-78); ALBUMIN 3.4 G/DL (3.4-5.0); ALBUMIN/GLOBULIN RATIO 0.8 (1.1-1.5); ALKALINE PHOSPHATASE 55 IU/L (46-116); ANION GAP 7 (8-16); ASPARTATE AMINO TRANSFERASE 17 U/L (10-37); BILIRUBIN,TOTAL 0.3 MG/DL (0.1-1.0); BLOOD UREA NITROGEN 15 MG/DL (7-18); BUN/CREATININE RATIO 21.1 (10.0-20.0); CALCIUM 9.2 MG/DL (8.5-10.1); CHLORIDE 100 MMOL/L (99-107); CREATININE 0.71 MG/DL (0.40-0.90); GLUCOSE 101 MG/DL (70-104); SODIUM 139 MMOL/L (135-145); TOTAL CARBON DIOXIDE 31.9 MMOL/L (24-32); TOTAL PROTEIN 7.7 G/DL (6.4-8.2); eGFR > 90 ML/MIN
[2023-05-14 13:26] LABS: ETHANOL < 0.010 GM/DL (0.0-0.010)
--- NOTE | 2023-05-14 14:42 | NUR ---
Recieved patient from ER from MICHELET Infante. Patient showing no s/s of distress.
[2023-05-14 15:01] LABS: URINE HCG NEGATIVE (NEG)
[2023-05-14 15:15] LABS: URINE AMPHETAMINE SCREEN NEGATIVE (Neg); URINE BARBITUATE SCREEN NEGATIVE (Neg); URINE BENZODIAZEPINES SCREEN NEGATIVE (Neg); URINE CANNABINOID SCREEN NEGATIVE (Neg); URINE COCAINE SCREEN NEGATIVE (Neg); URINE METHADONE SCREEN NEGATIVE (Neg); URINE OPIATE SCREEN NEGATIVE (Neg); URINE PHENCYCLIDINE SCREEN NEGATIVE (Neg)
[2023-05-14] MEDS ORDERED: ATOR80TA PO (16:22)
[2023-05-14] MEDS ORDERED: CARI1.5C PO (16:22)
[2023-05-14] MEDS ORDERED: LORA-512 PO (16:37)
[2023-05-14] MEDS ORDERED: QUET50TA24 PO (16:37)
[2023-05-14] MEDS ORDERED: PANT20TA18 PO (16:37)
--- NOTE | 2023-05-14 16:51 | NUR ---
Patient asleep in bed. Respirations even and unlabored. No s/s of distress.
[2023-05-14] MEDS ORDERED: acetaminophen 325mg tablet PO ONE (18:50)
--- NOTE | 2023-05-14 19:47 | NUR ---
Patient is pleasant and cooperative with care; PRN Tylenol was provided for 7/10 GEE and appears to have had positive effect. Patient denied SI, HI, A/VH; she expressed she has been "feeling beter since medications this morning." Patient continued to explain she struggles with A/VH when she's not sleeping well and this month she's had two teeth extracted making it difficult to sleep. Patient is currently sleeping and does not appear to be having difficulty.
[2023-05-14] MEDS: gabapentin 100mg capsule PO SCH (20:16)
--- NOTE | 2023-05-14 20:54 | NUR ---
Patient appears to be sleeping without apparent difficulties; self repositioning.
[2023-05-14] MEDS ORDERED: QUEtiapine 25mg tablet PO SCH (21:00)
--- NOTE | 2023-05-14 23:00 | NUR ---
Patient sleeping; no apparent distress and self repositioning.
--- NOTE | 2023-05-15 02:51 | NUR ---
Patient sleeping; no apparent distress and self repositioning.
--- NOTE | 2023-05-15 05:00 | NUR ---
Patient sleeping; no apparent distress and self repositioning.
[2023-05-15 05:59] VITALS: BP 119/79; PULSE 84; TEMP 98.4; O2SAT 90
--- NOTE | 2023-05-15 07:08 | NUR ---
Received report. Patient sleeping. Respirations even and unlabored. No s/s of distress.
[2023-05-15] MEDS ORDERED: pantoprazole 40mg Tablet.DR PO SCH (07:30)
[2023-05-15] MEDS ORDERED: METFORMIN HCL PO SCH (07:30)
[2023-05-15] MEDS ORDERED: fenofibrate 48mg tablet PO SCH (08:00)
[2023-05-15] MEDS ORDERED: loratadine 10mg tablet PO SCH (08:00)
[2023-05-15] MEDS ORDERED: atorvastatin 20mg tablet PO SCH (08:00)
[2023-05-15] MEDS ORDERED: CARIPRAZINE 1.5 MG CAPSULE PO SCH (08:00)
--- NOTE | 2023-05-15 08:01 | NUR ---
Pt packet faxed to [facility]
[2023-05-15] MEDS ORDERED: metFORMIN 500mg tablet PO SCH (08:12)
[2023-05-15] MEDS: gabapentin 100mg capsule PO SCH ×2 (08:25→13:10)
--- NOTE | 2023-05-15 08:44 | NUR ---
Patient ate breakfast and took medications. Patient now asleep in bed. Respirations even and unlabored. No s/s of distress.
--- NOTE | 2023-05-15 09:53 | NUR ---
Patient is asleep. Respirations are even and unlabored. No s/s of distress.
[2023-05-15] MEDS ORDERED: SUMAtriptan 25 MG tablet PO PRN (10:00)
[2023-05-15 11:32] VITALS: RESP 15
--- NOTE | 2023-05-15 11:47 | NUR ---
Patient awake and laying in bed. Respirations even and unlabored. No s/s of distress.
--- NOTE | 2023-05-15 13:22 | NUR ---
[facility] at bedside evaluating patient.
--- NOTE | 2023-05-15 15:08 | NUR ---
Patient discharged from unit. Walked out with tech, gait steady. Patient left with all belongings. RN gave patient DC instructions. Patient verbalized understanding. Friend here to take patient home.
== END 2023-05-15 15:30 | disposition home or self-care (01) ==
LOC: ER 10:18
DX: R45.851 Suicidal ideations (principal); Z20.822 Contact with and (suspected) exposure to COVID-19; Z91.199 Patient's noncompliance with other medical treatment and regimen due to unspecified reason; G43.909 Migraine, unspecified, not intractable, without status migrainosus; E78.00 Pure hypercholesterolemia, unspecified; J44.9 Chronic obstructive pulmonary disease, unspecified; K21.9 Gastro-esophageal reflux disease without esophagitis; E11.9 Type 2 diabetes mellitus without complications; F31.9 Bipolar disorder, unspecified; Z88.6 Allergy status to analgesic agent; Z79.899 Other long term (current) drug therapy
CPT/HCPCS: 36415; 80053; 80305; 80320; 81025; 84443; 85025; 87811; 99285

== ENCOUNTER 2023-05-22 15:27 | Emergency (ER) | payer BC, MEDICAID ==
[~2023-05-22] VITALS: Ht 157.5 cm; Wt 143.4 kg
[~2023-05-22 15:27] MED LIST changes: -ACET-38 PO; +ATOR80TA PO; +CARI1.5C PO; -CHLO100T7 PO; -CHLO50TA52 PO; -DESV100T PO; -LAMO100T2 PO; +LORA-512 PO; -ONDA4TAB12 PO; +QUET50TA24 PO; -SPIR50TA PO; -SUMA100T16 PO; -TRAZ-251 PO
[2023-05-22 16:30] VITALS: TEMP 98.4
[2023-05-22 16:56] LABS: BASOPHILS # (AUTO) 0.1 X10'3 (0-0.2); BASOPHILS % (AUTO) 0.4 % (0-1); EOSINOPHILS # (AUTO) 0.2 X10'3 (0-0.9); MEAN PLATELET VOLUME 7.4 FL (7.4-10.4)
[2023-05-22 16:58] LABS: HEMATOCRIT 47.3 % (35.0-45.0); HEMOGLOBIN 15.3 g/dl (12.0-16.0); LYMPHOCYTES # (AUTO) 3.2 X10'3 (1.1-4.8); LYMPHOCYTES % (AUTO) 18.2 % (21-51); MEAN CORPUSCULAR HEMOGLOBIN 28.2 PG (27.0-31.0); MEAN CORPUSCULAR HGB CONC 32.4 g/dL (33.0-36.5); MEAN CORPUSCULAR VOLUME 86.9 FL (78-98); MONOCYTES # (AUTO) 1.1 X10'3 (0-0.9); NEUTROPHILS # (AUTO) 13.2 X10'3 (1.8-7.7); NEUTROPHILS % (AUTO) 74.4 % (42-75); PLATELET COUNT 276 X10'3 (140-440); RED BLOOD COUNT 5.44 X10'6 (4.20-5.60); RED CELL DISTRIBUTION WIDTH 14.9 % (11.5-14.5); WHITE BLOOD COUNT 17.8 X10'3 (4.5-11.0)
[2023-05-22 18:37] LABS: ALANINE AMINOTRANSFERASE 27 U/L (12-78); ALBUMIN 3.6 G/DL (3.4-5.0); ALBUMIN/GLOBULIN RATIO 0.8 (1.1-1.5); ALKALINE PHOSPHATASE 56 IU/L (46-116); ANION GAP 8 (8-16); ASPARTATE AMINO TRANSFERASE 13 U/L (10-37); BILIRUBIN,TOTAL 0.3 MG/DL (0.1-1.0); BLOOD UREA NITROGEN 11 MG/DL (7-18); BUN/CREATININE RATIO 15.7 (10.0-20.0); CALCIUM 9.6 MG/DL (8.5-10.1); CHLORIDE 102 MMOL/L (99-107); GLUCOSE 124 MG/DL (70-104); SODIUM 141 MMOL/L (135-145); TOTAL CARBON DIOXIDE 30.9 MMOL/L (24-32); TOTAL PROTEIN 8.4 G/DL (6.4-8.2); eGFR > 90 ML/MIN
[2023-05-23 01:53] VITALS: BP 140/92; PULSE 102; RESP 16; O2SAT 97
== END 2023-05-23 01:54 | disposition home or self-care (01) ==
LOC: ER 15:28
DX: R07.89 Other chest pain (principal); G43.909 Migraine, unspecified, not intractable, without status migrainosus; E78.00 Pure hypercholesterolemia, unspecified; J44.9 Chronic obstructive pulmonary disease, unspecified; K21.9 Gastro-esophageal reflux disease without esophagitis; E11.9 Type 2 diabetes mellitus without complications; F31.9 Bipolar disorder, unspecified; Z88.6 Allergy status to analgesic agent; Z88.8 Allergy status to other drugs, medicaments and biological substances; Z79.899 Other long term (current) drug therapy
CPT/HCPCS: 36415; 71045; 80053; 83880; 84484; 85025; 93005; 99285

== ENCOUNTER 2023-06-16 21:55 | Emergency (ER) | payer BC, MEDICAID ==
[~2023-06-16] VITALS: Ht 154.9 cm; Wt 146.4 kg
[2023-06-16 22:02] VITALS: TEMP 98.5
[2023-06-16 22:53] LABS: BILIRUBIN,URINE NEGATIVE (Neg); CLARITY,URINE SLIGHTLY CLOUDY (Clear); COLOR,URINE YELLOW (Yellow); GLUCOSE, URINE NEGATIVE (Neg); KETONES,URINE NEGATIVE (Neg); LEUKOCYTE ESTERASE ,URINE NEGATIVE (Neg); NITRITES, URINE NEGATIVE (Neg); OCCULT BLOOD,URINE SMALL (Neg); PROTEIN,URINE NEGATIVE (Neg); UROBILINOGEN,URINE 0.2 E.U/dL (0.2-1.0)
[2023-06-16 22:55] LABS: UA COLLECTION TYPE CLN CATCH MIDSTREAM
[2023-06-16 23:04] LABS: BACTERIA,URINE 1+ /HPF (Neg); MUCUS STRANDS MANY /LPF (Neg); SQUAMOUS EPITHELIAL CELL,UR MANY /LPF (FEW); WBC,URINE 0-4 /HPF (0-4)
[2023-06-16 23:06] LABS: URINE HCG NEGATIVE (NEG)
[2023-06-17] MEDS ORDERED: ketorolac tromethamine 15mg/ml inj. IM ONE (00:55)
[2023-06-17] MEDS ORDERED: ketorolac trometh. 30mg/ml inj. IM ONE (01:00)
--- NOTE | 2023-06-17 03:15 | NUR ---
[facility].
--- NOTE | 2023-06-17 03:21 | NUR ---
records recieved from [facility] visit.
[2023-06-17] MEDS ORDERED: IBUP-1984 PO (03:26)
[2023-06-17] MEDS ORDERED: LIDO1ADH67 TD (03:26)
[2023-06-17 03:40] VITALS: BP 130/85; PULSE 87; RESP 16; O2SAT 98
[2023-06-18] MEDS ORDERED: CARI3CAP PO (20:55)
[2023-06-18] MEDS ORDERED: albuteral INH (20:55)
[2023-06-18] MEDS ORDERED: METF-1203 PO (20:55)
[2023-06-18] MEDS ORDERED: DOCU-22 PO (20:57)
== END 2023-06-17 03:32 | disposition home or self-care (01) ==
LOC: ER 21:56
DX: M54.50 Low back pain, unspecified (principal); G43.909 Migraine, unspecified, not intractable, without status migrainosus; J44.9 Chronic obstructive pulmonary disease, unspecified; K21.9 Gastro-esophageal reflux disease without esophagitis; E11.9 Type 2 diabetes mellitus without complications; F31.9 Bipolar disorder, unspecified; Z88.6 Allergy status to analgesic agent; Z79.899 Other long term (current) drug therapy; Z79.1 Long term (current) use of non-steroidal anti-inflammatories (NSAID)
CPT/HCPCS: 81001; 81025; 96372; 99283; J1885

== ENCOUNTER 2023-06-18 19:59 | Emergency (ER) | payer BC, MEDICAID ==
[~2023-06-18] VITALS: Ht 154.9 cm; Wt 143.4 kg
[~2023-06-18 19:59] MED LIST changes: +IBUP-1984 PO; +LIDO1ADH67 TD
[2023-06-18 20:32] LABS: BASOPHILS % (AUTO) 0.2 % (0-1); EOSINOPHILS # (AUTO) 0.2 X10'3 (0-0.9); EOSINOPHILS % (AUTO) 1.2 % (0-6); HEMATOCRIT 41.9 % (35.0-45.0); HEMOGLOBIN 13.5 g/dl (12.0-16.0); LYMPHOCYTES # (AUTO) 2.6 X10'3 (1.1-4.8); LYMPHOCYTES % (AUTO) 17.6 % (21-51); MEAN CORPUSCULAR HEMOGLOBIN 27.4 PG (27.0-31.0); MEAN CORPUSCULAR HGB CONC 32.2 g/dL (33.0-36.5); MEAN CORPUSCULAR VOLUME 85.1 FL (78-98); MEAN PLATELET VOLUME 6.7 FL (7.4-10.4); MONOCYTES # (AUTO) 0.9 X10'3 (0-0.9); MONOCYTES % (AUTO) 6.3 % (2-12); NEUTROPHILS # (AUTO) 11.1 X10'3 (1.8-7.7); NEUTROPHILS % (AUTO) 74.7 % (42-75); PLATELET COUNT 364 X10'3 (140-440); RED BLOOD COUNT 4.93 X10'6 (4.20-5.60); RED CELL DISTRIBUTION WIDTH 14.9 % (11.5-14.5); WHITE BLOOD COUNT 14.9 X10'3 (4.5-11.0)
[2023-06-18 20:42] LABS: ALANINE AMINOTRANSFERASE 30 U/L (12-78); ALBUMIN 3.4 G/DL (3.4-5.0); ALBUMIN/GLOBULIN RATIO 0.7 (1.1-1.5); ALKALINE PHOSPHATASE 50 IU/L (46-116); ANION GAP 4 (8-16); ASPARTATE AMINO TRANSFERASE 17 U/L (10-37); BILIRUBIN,TOTAL 0.3 MG/DL (0.1-1.0); BLOOD UREA NITROGEN 12 MG/DL (7-18); CALCIUM 9.2 MG/DL (8.5-10.1); CHLORIDE 99 MMOL/L (99-107); CREATININE 0.75 MG/DL (0.40-0.90); GLUCOSE 158 MG/DL (70-104); POTASSIUM 3.8 MMOL/L (3.5-5.1); SODIUM 139 MMOL/L (135-145); TOTAL CARBON DIOXIDE 35.7 MMOL/L (24-32); eCRCL 78 ML/MIN; eGFR 87 ML/MIN
[2023-06-18 20:47] LABS: BILIRUBIN,URINE NEGATIVE (Neg); CLARITY,URINE CLOUDY (Clear); COLOR,URINE YELLOW (Yellow); GLUCOSE, URINE NEGATIVE (Neg); KETONES,URINE NEGATIVE (Neg); LEUKOCYTE ESTERASE ,URINE NEGATIVE (Neg); NITRITES, URINE NEGATIVE (Neg); OCCULT BLOOD,URINE LARGE (Neg); PH,URINE 6.5 (4.8-8.0); PROTEIN,URINE TRACE mg/dl (Neg); UROBILINOGEN,URINE 0.2 E.U/dL (0.2-1.0)
[2023-06-18 20:49] LABS: UA COLLECTION TYPE CLN CATCH MIDSTREAM
[2023-06-18 20:52] LABS: URINE HCG NEGATIVE (NEG)
[2023-06-18 20:53] LABS: ETHANOL < 10 MG/DL (<10); THYROID STIMULATING HORMONE 1.66 ulU/ml (0.34-4.50)
[2023-06-18 20:55] LABS: WBC,URINE 0-4 /HPF (0-4)
[2023-06-18] MEDS ORDERED: albuteral INH (20:55)
[2023-06-18] MEDS ORDERED: CARI3CAP PO (20:55)
[2023-06-18] MEDS ORDERED: METF-1203 PO (20:55)
[2023-06-18 20:56] LABS: BACTERIA,URINE FEW /HPF (Neg); RBC,URINE TNTC /HPF (0-2); SQUAMOUS EPITHELIAL CELL,UR FEW /LPF (FEW)
[2023-06-18] MEDS ORDERED: DOCU-22 PO (20:57)
[2023-06-18 21:03] LABS: URINE AMPHETAMINE SCREEN NEGATIVE (Neg); URINE BARBITUATE SCREEN NEGATIVE (Neg); URINE BENZODIAZEPINES SCREEN NEGATIVE (Neg); URINE CANNABINOID SCREEN NEGATIVE (Neg); URINE COCAINE SCREEN NEGATIVE (Neg); URINE METHADONE SCREEN NEGATIVE (Neg); URINE OPIATE SCREEN POSITIVE (Neg); URINE PHENCYCLIDINE SCREEN NEGATIVE (Neg)
--- NOTE | 2023-06-18 21:23 | NUR ---
The patient is a 38 year old female who took a taxi cab to the ER 2nd to suicidal thoughts. She reports that if she had not come to the ER she would have overdosed on her medications. She feels overwhelmed and upset 2nd chronic pain in lower right abd and lower back 2nd to a ovarian cyst that was diagnoised by [facility]. She was referred to her PMD but is unable to get in until the July 26. She was tearful and stated that she can't handle the pain. She reports that her PMD did order 4 pain pills which helped but the pain came right back. She also has been using over the counter pain medications, tylenol, motrin, and aleve. She stated the lowest the pain has been was 6/10. She also reports loud and constant voices telling her to harm herself. She has a long history of mental illness and has been hospitalized on CB. Her diagnosis is Schizoaffective disorder. She is medication and treatment compliant. She denies substance abuse. Medical problems include ovarian cyst, asthma and GERD. She is a client of [facility]. She lives with a roommate in an apartment.
[2023-06-18] MEDS ORDERED: quetiapine 100mg tablet PO ONE (23:30)
[2023-06-18] MEDS ORDERED: albuterol 2.5 MG/3 ML nebule NEB PRN (23:45)
--- NOTE | 2023-06-18 23:50 | NUR ---
at the bedside speaking with the patient.
[2023-06-18] MEDS ORDERED: ketorolac trometh inj. 60 MG/2 ML VIAL IM ONE (23:55)
[2023-06-19] MEDS ORDERED: ibuprofen tablet 400 MG TABLET PO PRN (00:10)
[2023-06-19] MEDS ORDERED: acetaminophen 325mg tablet PO PRN (00:10)
--- NOTE | 2023-06-19 01:00 | NUR ---
The patient appears to be sleeping
--- NOTE | 2023-06-19 02:56 | NUR ---
The patient appears to be sleeping
--- NOTE | 2023-06-19 05:03 | NUR ---
The patient appears to be sleeping
[2023-06-19 05:58] VITALS: BP 110/75; PULSE 88; TEMP 97.8; O2SAT 94
--- NOTE | 2023-06-19 06:33 | NUR ---
Patient is sleeping spine. Respirations equal and nonlabored. No distress observed at this time. Continue with the plan of care.
--- NOTE | 2023-06-19 06:49 | NUR ---
US Tech at bedside. No distress observed. Continue to monitor.
[2023-06-19] MEDS ORDERED: pantoprazole 40mg Tablet.DR PO SCH (07:30)
[2023-06-19] MEDS ORDERED: atorvastatin 20mg tablet PO SCH (08:00)
[2023-06-19] MEDS ORDERED: CARIPRAZINE 1.5 MG CAPSULE PO SCH (08:00)
[2023-06-19] MEDS ORDERED: metFORMIN 500mg tablet PO SCH (08:00)
[2023-06-19] MEDS ORDERED: docusate sod 100mg capsule PO SCH (08:00)
[2023-06-19] MEDS ORDERED: gabapentin 100mg capsule PO SCH (08:00)
[2023-06-19 08:10] VITALS: RESP 16
--- NOTE | 2023-06-19 08:11 | NUR ---
Patient fell back asleep after her U/S. Patient eating breakfast. No pain at this time. Continue to monitor.
[2023-06-19] MEDS ORDERED: fenofibrate 48mg tablet PO SCH (08:30)
--- NOTE | 2023-06-19 09:30 | NUR ---
LAURE, Madi, speaking with patient and patient's Staff Training And Development Manager who is at bedside. No distress observed. Continue to monitor.
[2023-06-19] MEDS ORDERED: quetiapine 100mg tablet PO SCH (21:00)
== END 2023-06-19 10:22 | disposition home or self-care (01) ==
LOC: ER 20:00
DX: R45.851 Suicidal ideations (principal); Z20.822 Contact with and (suspected) exposure to COVID-19; R10.30 Lower abdominal pain, unspecified; G43.909 Migraine, unspecified, not intractable, without status migrainosus; J44.9 Chronic obstructive pulmonary disease, unspecified; E11.9 Type 2 diabetes mellitus without complications; F31.9 Bipolar disorder, unspecified; F20.9 Schizophrenia, unspecified; G89.29 Other chronic pain; M54.9 Dorsalgia, unspecified
CPT/HCPCS: 36415; 76856; 80053; 80305; 80320; 81001; 81025; 84443; 85025; 87811; 93976; 96372; 99285; J1885

== ENCOUNTER 2023-07-28 18:42 | Emergency (ER) | payer BC, MEDICAID ==
[~2023-07-28] VITALS: Ht 157.5 cm; Wt 147.3 kg
[~2023-07-28 18:42] MED LIST changes: +ALBU6.7H14 IH; +BENZ1TAB78 PO; -CARI1.5C PO; +CARI3CAP PO; +CIPR-259 PO; +DESV100T16 PO; +DOCU-22 PO; +ERGO500093 PO; -FENO54TA4 PO; +HYDR-3964 PO; -IBUP-1984 PO; +LAMO200T10 PO; +LEVO1TAB19 PO; -LIDO1ADH67 TD; -LORA-512 PO; +METF-516 PO; -METF-900 PO; +METO10TA3 PO; +METR-159 PO; +ONDA4TAB12 PO; +QUET100T34 PO; -QUET50TA24 PO
[2023-07-28 19:45] LABS: EOSINOPHILS # (AUTO) 0.5 X10'3 (0-0.9); HEMOGLOBIN 12.9 g/dl (12.0-16.0); MEAN PLATELET VOLUME 7.2 FL (7.4-10.4)
[2023-07-28 19:48] LABS: BASOPHILS % (AUTO) 0.4 % (0-1); EOSINOPHILS % (AUTO) 3.5 % (0-6); HEMATOCRIT 39.9 % (35.0-45.0); LYMPHOCYTES # (AUTO) 2.3 X10'3 (1.1-4.8); LYMPHOCYTES % (AUTO) 16.9 % (21-51); MEAN CORPUSCULAR HEMOGLOBIN 27.4 PG (27.0-31.0); MEAN CORPUSCULAR HGB CONC 32.2 g/dL (33.0-36.5); MONOCYTES # (AUTO) 0.8 X10'3 (0-0.9); MONOCYTES % (AUTO) 5.9 % (2-12); NEUTROPHILS # (AUTO) 10.1 X10'3 (1.8-7.7); NEUTROPHILS % (AUTO) 73.3 % (42-75); PLATELET COUNT 385 X10'3 (140-440); RED CELL DISTRIBUTION WIDTH 15.3 % (11.5-14.5); WHITE BLOOD COUNT 13.7 X10'3 (4.5-11.0)
[2023-07-28 19:57] LABS: ALANINE AMINOTRANSFERASE 91 U/L (12-78); ALBUMIN 3.2 G/DL (3.4-5.0); ALBUMIN/GLOBULIN RATIO 0.7 (1.1-1.5); ALKALINE PHOSPHATASE 49 IU/L (46-116); ANION GAP 6 (8-16); ASPARTATE AMINO TRANSFERASE 38 U/L (10-37); BILIRUBIN,TOTAL 0.5 MG/DL (0.1-1.0); BLOOD UREA NITROGEN 9 MG/DL (7-18); BUN/CREATININE RATIO 10.8 (10.0-20.0); CALCIUM 9.8 MG/DL (8.5-10.1); CHLORIDE 97 MMOL/L (99-107); CREATININE 0.83 MG/DL (0.40-0.90); GLUCOSE 116 MG/DL (70-104); POTASSIUM 3.6 MMOL/L (3.5-5.1); SODIUM 133 MMOL/L (135-145); TOTAL CARBON DIOXIDE 29.7 MMOL/L (24-32); eCRCL 73 ML/MIN; eGFR 77 ML/MIN
[2023-07-28 20:05] LABS: PRO BRAIN NATRIURETIC PEPTIDE < 30 PG/ML (0-125)
[2023-07-29 01:58] VITALS: BP 134/92; PULSE 96; RESP 14; TEMP 97.8; O2SAT 96
== END 2023-07-29 04:30 | disposition home or self-care (01) ==
LOC: ER 18:43
DX: R07.9 Chest pain, unspecified (principal); E78.00 Pure hypercholesterolemia, unspecified; G43.909 Migraine, unspecified, not intractable, without status migrainosus; G89.29 Other chronic pain; M54.9 Dorsalgia, unspecified; F31.9 Bipolar disorder, unspecified; F20.9 Schizophrenia, unspecified; Z88.5 Allergy status to narcotic agent; Z79.899 Other long term (current) drug therapy; Z79.1 Long term (current) use of non-steroidal anti-inflammatories (NSAID); Z79.2 Long term (current) use of antibiotics
CPT/HCPCS: 36415; 71045; 80053; 83880; 84484; 85025; 93005; 99285

== ENCOUNTER 2023-08-14 13:54 | Emergency (ER) | payer BC, MEDICAID ==
[~2023-08-14] VITALS: Ht 154.9 cm; Wt 142.7 kg
[~2023-08-14 13:54] MED LIST changes: -CIPR-259 PO; -METR-159 PO
[2023-08-14 21:49] LABS: BASOPHILS # (AUTO) 0.1 X10'3 (0-0.2); BASOPHILS % (AUTO) 0.8 % (0-1); EOSINOPHILS # (AUTO) 0.2 X10'3 (0-0.9); EOSINOPHILS % (AUTO) 1.8 % (0-6); HEMATOCRIT 41.9 % (35.0-45.0); HEMOGLOBIN 13.6 g/dl (12.0-16.0); LYMPHOCYTES # (AUTO) 3.3 X10'3 (1.1-4.8); LYMPHOCYTES % (AUTO) 26.9 % (21-51); MEAN CORPUSCULAR HEMOGLOBIN 26.6 PG (27.0-31.0); MEAN CORPUSCULAR HGB CONC 32.5 g/dL (33.0-36.5); MEAN CORPUSCULAR VOLUME 81.6 FL (78-98); MEAN PLATELET VOLUME 6.5 FL (7.4-10.4); MONOCYTES # (AUTO) 0.7 X10'3 (0-0.9); MONOCYTES % (AUTO) 5.8 % (2-12); NEUTROPHILS % (AUTO) 64.7 % (42-75); PLATELET COUNT 435 X10'3 (140-440); RED BLOOD COUNT 5.13 X10'6 (4.20-5.60); RED CELL DISTRIBUTION WIDTH 15.5 % (11.5-14.5); WHITE BLOOD COUNT 12.3 X10'3 (4.5-11.0)
[2023-08-14 21:59] LABS: APTT 28 SECONDS (22-32)
[2023-08-14 22:00] LABS: ALANINE AMINOTRANSFERASE 33 U/L (12-78); ALBUMIN 3.6 G/DL (3.4-5.0); ALBUMIN/GLOBULIN RATIO 0.8 (1.1-1.5); ALKALINE PHOSPHATASE 53 IU/L (46-116); ANION GAP 8 (8-16); ASPARTATE AMINO TRANSFERASE 31 U/L (10-37); BILIRUBIN,TOTAL 0.5 MG/DL (0.1-1.0); BLOOD UREA NITROGEN 9 MG/DL (7-18); BUN/CREATININE RATIO 12.3 (10.0-20.0); CALCIUM 9.7 MG/DL (8.5-10.1); CHLORIDE 101 MMOL/L (99-107); CREATININE 0.73 MG/DL (0.40-0.90); GLUCOSE 111 MG/DL (70-104); POTASSIUM 3.9 MMOL/L (3.5-5.1); SODIUM 139 MMOL/L (135-145); TOTAL PROTEIN 8.3 G/DL (6.4-8.2); eCRCL 80 ML/MIN; eGFR 90 ML/MIN
[2023-08-14] MEDS ORDERED: ESOM40CA49 PO (22:10)
[2023-08-14 22:45] VITALS: BP 123/97; PULSE 97; RESP 16; TEMP 97.8; O2SAT 95
== END 2023-08-14 22:47 | disposition home or self-care (01) ==
LOC: ER 13:56
DX: K92.0 Hematemesis (principal); E78.00 Pure hypercholesterolemia, unspecified; I11.0 Hypertensive heart disease with heart failure; K21.9 Gastro-esophageal reflux disease without esophagitis; G89.29 Other chronic pain; M54.9 Dorsalgia, unspecified; F31.9 Bipolar disorder, unspecified; F20.9 Schizophrenia, unspecified; Z79.899 Other long term (current) drug therapy; Z88.6 Allergy status to analgesic agent
CPT/HCPCS: 36415; 80053; 85025; 85610; 85730; 99283

== ENCOUNTER 2023-08-21 14:34 | Emergency (ER) | payer BC, MEDICAID ==
[~2023-08-21] VITALS: Ht 154.9 cm; Wt 142.7 kg
[~2023-08-21 14:34] MED LIST changes: +ESOM40CA49 PO
[2023-08-21 15:28] LABS: BILIRUBIN,URINE NEGATIVE (Neg); CLARITY,URINE SLIGHTLY CLOUDY (Clear); COLOR,URINE YELLOW (Yellow); GLUCOSE, URINE NEGATIVE (Neg); KETONES,URINE NEGATIVE (Neg); LEUKOCYTE ESTERASE ,URINE NEGATIVE (Neg); NITRITES, URINE NEGATIVE (Neg); OCCULT BLOOD,URINE NEGATIVE (Neg); PROTEIN,URINE NEGATIVE (Neg); UROBILINOGEN,URINE 0.2 E.U/dL (0.2-1.0)
[2023-08-21 15:32] LABS: UA COLLECTION TYPE CLN CATCH MIDSTREAM
[2023-08-21 15:33] LABS: MUCUS STRANDS MODERATE /LPF (Neg); SQUAMOUS EPITHELIAL CELL,UR MANY /LPF (FEW)
[2023-08-21 15:35] LABS: AMORPHOUS URATES 1+; BACTERIA,URINE FEW /HPF (Neg); TRANSITIONAL EPI CELLS,URINE FEW /HPF
[2023-08-21 15:49] LABS: URINE AMPHETAMINE SCREEN NEGATIVE (Neg); URINE BARBITUATE SCREEN NEGATIVE (Neg); URINE BENZODIAZEPINES SCREEN NEGATIVE (Neg); URINE CANNABINOID SCREEN NEGATIVE (Neg); URINE COCAINE SCREEN NEGATIVE (Neg); URINE METHADONE SCREEN NEGATIVE (Neg); URINE OPIATE SCREEN NEGATIVE (Neg); URINE PHENCYCLIDINE SCREEN NEGATIVE (Neg)
[2023-08-21 16:40] LABS: BASOPHILS # (AUTO) 0.1 X10'3 (0-0.2); BASOPHILS % (AUTO) 0.6 % (0-1); EOSINOPHILS # (AUTO) 0.2 X10'3 (0-0.9); HEMATOCRIT 43.2 % (35.0-45.0); HEMOGLOBIN 14.1 g/dl (12.0-16.0); LYMPHOCYTES # (AUTO) 2.4 X10'3 (1.1-4.8); LYMPHOCYTES % (AUTO) 19.8 % (21-51); MEAN CORPUSCULAR HEMOGLOBIN 26.5 PG (27.0-31.0); MEAN CORPUSCULAR HGB CONC 32.6 g/dL (33.0-36.5); MEAN CORPUSCULAR VOLUME 81.4 FL (78-98); MEAN PLATELET VOLUME 6.7 FL (7.4-10.4); MONOCYTES # (AUTO) 0.8 X10'3 (0-0.9); MONOCYTES % (AUTO) 6.9 % (2-12); NEUTROPHILS # (AUTO) 8.4 X10'3 (1.8-7.7); NEUTROPHILS % (AUTO) 70.7 % (42-75); PLATELET COUNT 391 X10'3 (140-440); RED BLOOD COUNT 5.31 X10'6 (4.20-5.60); RED CELL DISTRIBUTION WIDTH 15.2 % (11.5-14.5)
[2023-08-21 17:08] LABS: ALANINE AMINOTRANSFERASE 36 U/L (12-78); ALBUMIN 3.6 G/DL (3.4-5.0); ALBUMIN/GLOBULIN RATIO 0.8 (1.1-1.5); ALKALINE PHOSPHATASE 55 IU/L (46-116); ANION GAP 6 (8-16); ASPARTATE AMINO TRANSFERASE 21 U/L (10-37); BILIRUBIN,TOTAL 0.4 MG/DL (0.1-1.0); BLOOD UREA NITROGEN 10 MG/DL (7-18); BUN/CREATININE RATIO 13.3 (10.0-20.0); CHLORIDE 99 MMOL/L (99-107); CREATININE 0.75 MG/DL (0.40-0.90); GLUCOSE 108 MG/DL (70-104); POTASSIUM 3.7 MMOL/L (3.5-5.1); SODIUM 137 MMOL/L (135-145); TOTAL CARBON DIOXIDE 31.6 MMOL/L (24-32); TOTAL PROTEIN 8.2 G/DL (6.4-8.2); eCRCL 78 ML/MIN; eGFR 87 ML/MIN
[2023-08-21 17:20] LABS: THYROID STIMULATING HORMONE 1.38 ulU/ml (0.34-4.50)
[2023-08-21] MEDS ORDERED: cephalexin 250mg capsule PO ONE (17:45)
--- NOTE | 2023-08-21 18:40 | NUR ---
Per Shawn Contreras, completed wound care orders for wet to dry dressing on patient's abdomen. No distress observed. Continue to monitor.
--- NOTE | 2023-08-21 18:45 | NUR ---
Patient sitting up and eating a sandwich. No distress observed. Continue to monitor.
--- NOTE | 2023-08-21 20:28 | NUR ---
Patient reclining in bed and appears to be asleep. No distress observed. Continue to monitor.
--- NOTE | 2023-08-21 22:27 | NUR ---
Patient sleeping on her right side. Nonlabored respirations. No distress observed. Continue to monitor.
[2023-08-22] MEDS ORDERED: HYDR-3927 PO (00:15)
[2023-08-22] MEDS ORDERED: FENO130C14 PO (00:15)
--- NOTE | 2023-08-22 00:55 | NUR ---
Received report from MICHELET Melvin. Pt is resting quietly in bed. RR even and unlabored, in no distress. Monitor for safety.
[2023-08-22] MEDS ORDERED: albuterol 2.5 MG/3 ML nebule NEB PRN (01:15)
[2023-08-22] MEDS ORDERED: quetiapine 100mg tablet PO SCH (01:18)
[2023-08-22] MEDS ORDERED: hydrOXYzine 25 MG tablet PO PRN (01:20)
--- NOTE | 2023-08-22 02:05 | NUR ---
Pt awake and up to the bathroom. Warm blanket and socks given. Pt in NAD.
--- NOTE | 2023-08-22 03:58 | NUR ---
Pt asleep in prone position. No respitory issues. Pt in NAD. Monitor for safety.
--- NOTE | 2023-08-22 05:36 | NUR ---
Pt is sleeping on her right side. RR even and unlabored, in NAD. Monitor for safety.
--- NOTE | 2023-08-22 06:30 | NUR ---
Received pt. sleeping, head of bed elevated, rr are even and unlabored.
[2023-08-22] MEDS ORDERED: pantoprazole 40mg Tablet.DR PO SCH (07:30)
[2023-08-22] MEDS: metoclopramide 10mg tablet PO SCH ×3 (08:00→13:24)
[2023-08-22] MEDS ORDERED: fenofibrate 145mg tablet PO SCH (08:00)
[2023-08-22] MEDS ORDERED: non-formulary drug (Esomeprazole Magnesium (Nexium) 1 CAP) PO SCH (08:00)
[2023-08-22] MEDS: docusate sod 100mg capsule PO SCH ×2 (08:00→08:32)
[2023-08-22] MEDS ORDERED: metFORMIN 500mg tablet PO SCH (08:00)
[2023-08-22] MEDS ORDERED: lamoTRIgine 100mg tablet PO SCH (08:00)
[2023-08-22] MEDS ORDERED: atorvastatin 20mg tablet PO SCH (08:00)
--- NOTE | 2023-08-22 08:30 | NUR ---
1:1 was completed at bedside with patient. She continues to report S/I with a plan to overdose. Pt. also reports a history of suicide attempts, "Years ago." When questioned regarding A/V/GEE, pt. reports negative A/GEE which tell her, "You don't deserve to live." Pt. reports V/GEE of family members who have previously . She endorses a current support system, but states these people are all currently on holiday so are not available to her. Pt's abdominal laceration from her previous surgery is currently covered with a dressing and is clean, dry, and intact ( reportedly placed last night). No drainage noted. A wound care consult is currently in place.
--- NOTE | 2023-08-22 09:30 | NUR ---
Pt's life skills coordinator is at bedside visiting with her at this time.
[2023-08-22] MEDS ORDERED: CARI3CAP PO (10:06)
--- NOTE | 2023-08-22 10:30 | NUR ---
Pt. is sitting in bed and appears to be resting comfortably at this time. Per report, she takes Vraylar 3mg daily which helps with her hallucinations. This was endorsed to Dr. Sahu and received orders to start first dose now.
[2023-08-22] MEDS ORDERED: CARIPRAZINE 1.5 MG CAPSULE PO SCH (11:20)
--- NOTE | 2023-08-22 12:21 | NUR ---
Pt. is sitting up in bed eating lunch at this time. Per Dr. Sahu, pt. has a UTI and he will be ordering antibiotics for her to take upon discharge.
[2023-08-22] MEDS ORDERED: CEPH250T PO (12:25)
--- NOTE | 2023-08-22 12:52 | NUR ---
This telegraphic typewriter operator spoke to staff at [facility] per request from [facility] social sciences department chair as pt. is currently a patient of Dr. Leonidas granger. Per staff, pt's appointment which was previously scheduled for September will be rescheduled for tomorrow 08/23/23 at 0915. Pt. is aware of this and reports contentment.
--- NOTE | 2023-08-22 14:30 | NUR ---
Per [facility], pt. will be discharged home. A Taxi was called to transport her and pt. is sitting in bed awaiting Taxi at this time.
--- NOTE | 2023-08-22 15:40 | NUR ---
Pt. was escorted off the unit accompanied by staff to a Taxi which will be transporting her home. Pt's belongings were inventoried and returned to her. This contract writer reviewed pt's discharge instructions and new order for Keflex with her and she reported understanding. Pt. will pickle cutter this prescription at her preferred pharmacy. Pt. was provided with mental health information and has an appointment with her psychiatrist scheduled for tomorrow at [facility].
[2023-08-22 16:25] VITALS: BP 154/90; PULSE 86; RESP 12; TEMP 98.7; O2SAT 98
== END 2023-08-22 16:29 | disposition home or self-care (01) ==
LOC: ER 14:36
DX: R45.851 Suicidal ideations (principal); Z20.822 Contact with and (suspected) exposure to COVID-19; N39.0 Urinary tract infection, site not specified; L03.316 Cellulitis of umbilicus; G43.909 Migraine, unspecified, not intractable, without status migrainosus; E78.00 Pure hypercholesterolemia, unspecified; J45.909 Unspecified asthma, uncomplicated; J44.9 Chronic obstructive pulmonary disease, unspecified; K21.9 Gastro-esophageal reflux disease without esophagitis; E11.9 Type 2 diabetes mellitus without complications; F31.9 Bipolar disorder, unspecified; Z88.6 Allergy status to analgesic agent; Z88.8 Allergy status to other drugs, medicaments and biological substances; Z79.2 Long term (current) use of antibiotics; Z79.899 Other long term (current) drug therapy
CPT/HCPCS: 36415; 80053; 80305; 81001; 84443; 85025; 87811; 99285; A6223; A6449

== ENCOUNTER 2023-09-11 17:59 | Emergency (ER) | payer BC, MEDICAID ==
[~2023-09-11] VITALS: Ht 154.9 cm; Wt 144.5 kg
[~2023-09-11 17:59] MED LIST changes: -BENZ1TAB78 PO; -DESV100T16 PO; -ERGO500093 PO; -ESOM40CA49 PO; +FENO130C14 PO; -GABA-530 PO; +HYDR-3927 PO; -HYDR-3964 PO; -LEVO1TAB19 PO; -ONDA4TAB12 PO
[2023-09-11 18:06] VITALS: BP 139/86; PULSE 92; TEMP 98; O2SAT 94
[2023-09-11] MEDS ORDERED: diphenhydrAMINE 50 mg/ml inj IM ONE (20:00)
[2023-09-11] MEDS ORDERED: ketorolac tromethamine 15mg/ml inj. IM ONE (20:00)
[2023-09-11] MEDS ORDERED: SUMAtriptan 25 MG tablet PO ONE (20:00)
[2023-09-11 20:39] VITALS: RESP 18
== END 2023-09-11 21:19 | disposition home or self-care (01) ==
LOC: ER 18:00
DX: G43.909 Migraine, unspecified, not intractable, without status migrainosus (principal); E78.00 Pure hypercholesterolemia, unspecified; J45.909 Unspecified asthma, uncomplicated; J44.9 Chronic obstructive pulmonary disease, unspecified; K21.9 Gastro-esophageal reflux disease without esophagitis; E11.9 Type 2 diabetes mellitus without complications; Z88.6 Allergy status to analgesic agent; Z88.8 Allergy status to other drugs, medicaments and biological substances; Z79.899 Other long term (current) drug therapy; Z90.49 Acquired absence of other specified parts of digestive tract
CPT/HCPCS: 96372; 99284; J1200; J1885

== ENCOUNTER 2023-09-15 20:26 | Emergency (ER) | payer BC, MEDICAID ==
[~2023-09-15] VITALS: Ht 154.9 cm; Wt 144.1 kg
[2023-09-15] MEDS ORDERED: magnesium 2GM in 50ml NS 50 ML IV ONE (20:35)
[2023-09-15] MEDS ORDERED: diphenhydrAMINE 50 mg/ml inj IV ONE (20:35)
[2023-09-15] MEDS ORDERED: ketorolac trometh. 30mg/ml inj. IV ONE (20:35)
[2023-09-15] MEDS ORDERED: proCHLORperazine 10 MG/2 ml inj IV ONE (20:35)
[2023-09-15 21:40] LABS: ALANINE AMINOTRANSFERASE 26 U/L (12-78); ALBUMIN 3.2 G/DL (3.4-5.0); ALBUMIN/GLOBULIN RATIO 0.8 (1.1-1.5); ALKALINE PHOSPHATASE 44 IU/L (46-116); ANION GAP 3 (8-16); ASPARTATE AMINO TRANSFERASE 17 U/L (10-37); BILIRUBIN,TOTAL 0.2 MG/DL (0.1-1.0); BLOOD UREA NITROGEN 13 MG/DL (7-18); BUN/CREATININE RATIO 18.1 (10.0-20.0); CALCIUM 8.8 MG/DL (8.5-10.1); CHLORIDE 99 MMOL/L (99-107); CREATININE 0.72 MG/DL (0.40-0.90); GLUCOSE 155 MG/DL (70-104); POTASSIUM 3.5 MMOL/L (3.5-5.1); SODIUM 135 MMOL/L (135-145); TOTAL PROTEIN 7.4 G/DL (6.4-8.2); eCRCL 81 ML/MIN; eGFR > 90 ML/MIN
[2023-09-15 21:43] LABS: EOSINOPHILS # (AUTO) 0.2 X10'3 (0-0.9); MEAN CORPUSCULAR HEMOGLOBIN 26.2 PG (27.0-31.0); MEAN PLATELET VOLUME 7.2 FL (7.4-10.4)
[2023-09-15 21:45] LABS: BASOPHILS % (AUTO) 0.3 % (0-1); EOSINOPHILS % (AUTO) 1.8 % (0-6); HCG SERUM QL NEGATIVE; HEMATOCRIT 40.7 % (35.0-45.0); HEMOGLOBIN 13.2 g/dl (12.0-16.0); LYMPHOCYTES # (AUTO) 2.5 X10'3 (1.1-4.8); LYMPHOCYTES % (AUTO) 22.9 % (21-51); MEAN CORPUSCULAR HGB CONC 32.5 g/dL (33.0-36.5); MEAN CORPUSCULAR VOLUME 80.5 FL (78-98); MONOCYTES # (AUTO) 0.9 X10'3 (0-0.9); MONOCYTES % (AUTO) 8.2 % (2-12); NEUTROPHILS # (AUTO) 7.2 X10'3 (1.8-7.7); NEUTROPHILS % (AUTO) 66.8 % (42-75); PLATELET COUNT 384 X10'3 (140-440); RED BLOOD COUNT 5.05 X10'6 (4.20-5.60); RED CELL DISTRIBUTION WIDTH 15.2 % (11.5-14.5); WHITE BLOOD COUNT 10.8 X10'3 (4.5-11.0)
[2023-09-15 22:51] VITALS: BP 137/87; PULSE 85; RESP 17; TEMP 99; O2SAT 96
== END 2023-09-15 22:53 | disposition home or self-care (01) ==
LOC: ER 20:26
DX: G89.29 Other chronic pain (principal); E78.00 Pure hypercholesterolemia, unspecified; J44.9 Chronic obstructive pulmonary disease, unspecified; M54.9 Dorsalgia, unspecified; F31.9 Bipolar disorder, unspecified; F20.9 Schizophrenia, unspecified
CPT/HCPCS: 36415; 80053; 84703; 85025; 96365; 96366; 96375; 99284; J0780; J1200; J1885; J3475

== ENCOUNTER 2023-09-25 09:20 | Emergency (ER) | payer BC, MEDICAID ==
[~2023-09-25] VITALS: Ht 154.9 cm; Wt 148.9 kg
[2023-09-25 09:46] VITALS: BP 143/95; PULSE 97; RESP 17; TEMP 97.7; O2SAT 94
[2023-09-25 09:50] LABS: BASOPHILS % (AUTO) 0.3 % (0-1); EOSINOPHILS # (AUTO) 0.2 X10'3 (0-0.9); EOSINOPHILS % (AUTO) 1.9 % (0-6); HEMATOCRIT 41.1 % (35.0-45.0); HEMOGLOBIN 13.3 g/dl (12.0-16.0); LYMPHOCYTES # (AUTO) 2.2 X10'3 (1.1-4.8); LYMPHOCYTES % (AUTO) 20.9 % (21-51); MEAN CORPUSCULAR HEMOGLOBIN 25.9 PG (27.0-31.0); MEAN CORPUSCULAR HGB CONC 32.4 g/dL (33.0-36.5); MEAN CORPUSCULAR VOLUME 80.2 FL (78-98); MEAN PLATELET VOLUME 7.1 FL (7.4-10.4); MONOCYTES # (AUTO) 0.8 X10'3 (0-0.9); MONOCYTES % (AUTO) 7.1 % (2-12); NEUTROPHILS # (AUTO) 7.4 X10'3 (1.8-7.7); NEUTROPHILS % (AUTO) 69.8 % (42-75); PLATELET COUNT 380 X10'3 (140-440); RED BLOOD COUNT 5.12 X10'6 (4.20-5.60); RED CELL DISTRIBUTION WIDTH 15.2 % (11.5-14.5); WHITE BLOOD COUNT 10.7 X10'3 (4.5-11.0)
[2023-09-25 09:54] LABS: BILIRUBIN,URINE NEGATIVE (Neg); CLARITY,URINE SLIGHTLY CLOUDY (Clear); COLOR,URINE YELLOW (Yellow); GLUCOSE, URINE NEGATIVE (Neg); KETONES,URINE NEGATIVE (Neg); LEUKOCYTE ESTERASE ,URINE NEGATIVE (Neg); NITRITES, URINE NEGATIVE (Neg); OCCULT BLOOD,URINE TRACE-INTACT (Neg); PROTEIN,URINE NEGATIVE (Neg); UROBILINOGEN,URINE 0.2 E.U/dL (0.2-1.0)
[2023-09-25 10:00] LABS: UA COLLECTION TYPE CLN CATCH MIDSTREAM
[2023-09-25 10:05] LABS: MUCUS STRANDS FEW /LPF (Neg); SQUAMOUS EPITHELIAL CELL,UR MANY /LPF (FEW)
[2023-09-25 10:06] LABS: ALANINE AMINOTRANSFERASE 27 U/L (12-78); ALBUMIN 3.3 G/DL (3.4-5.0); ALBUMIN/GLOBULIN RATIO 0.7 (1.1-1.5); ALKALINE PHOSPHATASE 50 IU/L (46-116); ANION GAP 8 (8-16); ASPARTATE AMINO TRANSFERASE 14 U/L (10-37); BILIRUBIN,TOTAL 0.2 MG/DL (0.1-1.0); BLOOD UREA NITROGEN 11 MG/DL (7-18); BUN/CREATININE RATIO 13.9 (10.0-20.0); CALCIUM 8.9 MG/DL (8.5-10.1); CHLORIDE 100 MMOL/L (99-107); CREATININE 0.79 MG/DL (0.40-0.90); GLUCOSE 247 MG/DL (70-104); POTASSIUM 3.8 MMOL/L (3.5-5.1); SODIUM 137 MMOL/L (135-145); TOTAL CARBON DIOXIDE 29.1 MMOL/L (24-32); TOTAL PROTEIN 7.8 G/DL (6.4-8.2); eCRCL 74 ML/MIN; eGFR 82 ML/MIN
[2023-09-25 10:07] LABS: BACTERIA,URINE FEW /HPF (Neg); RBC,URINE 0-2 /HPF (0-2); WBC,URINE 0-4 /HPF (0-4)
== END 2023-09-25 11:03 | disposition home or self-care (01) ==
LOC: ER 09:20
DX: R53.1 Weakness (principal); I11.0 Hypertensive heart disease with heart failure; G89.29 Other chronic pain; M54.9 Dorsalgia, unspecified; E11.9 Type 2 diabetes mellitus without complications; F31.9 Bipolar disorder, unspecified; F20.9 Schizophrenia, unspecified; G43.909 Migraine, unspecified, not intractable, without status migrainosus; Z88.5 Allergy status to narcotic agent; Z79.899 Other long term (current) drug therapy
CPT/HCPCS: 36415; 71045; 80053; 81001; 82948; 83735; 85025; 99284

== ENCOUNTER 2023-10-14 23:46 | Emergency (ER) | payer MEDICARE, MEDICAID ==
[~2023-10-14] VITALS: Ht 154.9 cm; Wt 150.0 kg
[2023-10-15 06:05] LABS: BASOPHILS % (AUTO) 0.3 % (0-1); EOSINOPHILS # (AUTO) 0.2 X10'3 (0-0.9); EOSINOPHILS % (AUTO) 1.6 % (0-6); HEMATOCRIT 43.3 % (35.0-45.0); HEMOGLOBIN 13.9 g/dl (12.0-16.0); LYMPHOCYTES # (AUTO) 3.5 X10'3 (1.1-4.8); MEAN CORPUSCULAR HEMOGLOBIN 25.4 PG (27.0-31.0); MEAN CORPUSCULAR HGB CONC 32.2 g/dL (33.0-36.5); MEAN PLATELET VOLUME 6.9 FL (7.4-10.4); MONOCYTES # (AUTO) 0.8 X10'3 (0-0.9); MONOCYTES % (AUTO) 6.4 % (2-12); NEUTROPHILS # (AUTO) 8.3 X10'3 (1.8-7.7); NEUTROPHILS % (AUTO) 64.7 % (42-75); PLATELET COUNT 423 X10'3 (140-440); RED BLOOD COUNT 5.48 X10'6 (4.20-5.60); RED CELL DISTRIBUTION WIDTH 15.5 % (11.5-14.5); WHITE BLOOD COUNT 12.9 X10'3 (4.5-11.0)
[2023-10-15 06:12] LABS: ALANINE AMINOTRANSFERASE 25 U/L (12-78); ALBUMIN 3.4 G/DL (3.4-5.0); ALBUMIN/GLOBULIN RATIO 0.7 (1.1-1.5); ALKALINE PHOSPHATASE 50 IU/L (46-116); ANION GAP 6 (8-16); ASPARTATE AMINO TRANSFERASE 12 U/L (10-37); BILIRUBIN,TOTAL 0.2 MG/DL (0.1-1.0); BLOOD UREA NITROGEN 11 MG/DL (7-18); BUN/CREATININE RATIO 15.3 (10.0-20.0); CALCIUM 9.1 MG/DL (8.5-10.1); CHLORIDE 100 MMOL/L (99-107); CREATININE 0.72 MG/DL (0.40-0.90); ETHANOL < 10 MG/DL (<10); GLUCOSE 128 MG/DL (70-104); POTASSIUM 3.8 MMOL/L (3.5-5.1); SALICYLATE 1.3 MG/DL (4.0-20.0); SODIUM 138 MMOL/L (135-145); TOTAL CARBON DIOXIDE 31.9 MMOL/L (24-32); TOTAL PROTEIN 8.1 G/DL (6.4-8.2); eCRCL 81 ML/MIN; eGFR > 90 ML/MIN
[2023-10-15 06:18] LABS: ACETAMINOPHEN < 2.0 UG/ML (10-30)
[2023-10-15 07:04] LABS: URINE HCG NEGATIVE (NEG)
[2023-10-15 07:23] LABS: URINE AMPHETAMINE SCREEN NEGATIVE (Neg); URINE BARBITUATE SCREEN NEGATIVE (Neg); URINE BENZODIAZEPINES SCREEN NEGATIVE (Neg); URINE CANNABINOID SCREEN NEGATIVE (Neg); URINE COCAINE SCREEN NEGATIVE (Neg); URINE METHADONE SCREEN NEGATIVE (Neg); URINE OPIATE SCREEN NEGATIVE (Neg); URINE PHENCYCLIDINE SCREEN NEGATIVE (Neg)
[2023-10-15 08:03] VITALS: BP 130/95; PULSE 85; RESP 15; TEMP 98.2; O2SAT 99
[2023-10-15 10:38] LABS: BILIRUBIN,URINE NEGATIVE (Neg); CLARITY,URINE CLOUDY (Clear); COLOR,URINE YELLOW (Yellow); GLUCOSE, URINE NEGATIVE (Neg); KETONES,URINE NEGATIVE (Neg); LEUKOCYTE ESTERASE ,URINE NEGATIVE (Neg); NITRITES, URINE NEGATIVE (Neg); OCCULT BLOOD,URINE SMALL (Neg); PH,URINE 5.5 (4.8-8.0); PROTEIN,URINE NEGATIVE (Neg); UROBILINOGEN,URINE 0.2 E.U/dL (0.2-1.0)
[2023-10-15 10:50] LABS: UA COLLECTION TYPE CLN CATCH MIDSTREAM
[2023-10-15 10:55] LABS: MUCUS STRANDS MANY /LPF (Neg); SQUAMOUS EPITHELIAL CELL,UR MANY /LPF (FEW)
[2023-10-15 10:56] LABS: CAL OXALATE CRYSTALS 4+ /HPF (NEGATIVE); WBC,URINE 20-30 /HPF (0-4)
[2023-10-15 10:57] LABS: BACTERIA,URINE 2+ /HPF (Neg)
[2023-10-15] MEDS ORDERED: dexamethasone sod phosphate 10mg/ml inj PO STA (14:23)
[2023-10-15 15:00] LABS: BILIRUBIN,URINE NEGATIVE (Neg); CLARITY,URINE CLOUDY (Clear); COLOR,URINE YELLOW (Yellow); GLUCOSE, URINE NEGATIVE (Neg); KETONES,URINE NEGATIVE (Neg); LEUKOCYTE ESTERASE ,URINE NEGATIVE (Neg); NITRITES, URINE NEGATIVE (Neg); OCCULT BLOOD,URINE TRACE-INTACT (Neg); PROTEIN,URINE NEGATIVE (Neg); UROBILINOGEN,URINE 0.2 E.U/dL (0.2-1.0)
[2023-10-15 15:09] LABS: UA COLLECTION TYPE CLN CATCH MIDSTREAM
[2023-10-15 15:10] LABS: MUCUS STRANDS MANY /LPF (Neg); SQUAMOUS EPITHELIAL CELL,UR MANY /LPF (FEW)
[2023-10-15 15:11] LABS: BACTERIA,URINE 1+ /HPF (Neg)
[2023-10-15] MEDS ORDERED: iohexol 300mg/ml 100ml inj. ONE (16:35)
[2023-10-16] MEDS ORDERED: LORA10TA7 PO (20:03)
[2023-10-16] MEDS ORDERED: CYCL5TAB PO (20:03)
[2023-10-16] MEDS ORDERED: GABA-530 PO (20:03)
[2023-10-16] MEDS ORDERED: ESCI5TAB17 PO (20:03)
[2023-10-16] MEDS ORDERED: SEMA0.258 SQ (20:03)
[2023-10-16] MEDS ORDERED: RIZA10TA28 PO (20:03)
== END 2023-10-15 17:54 | disposition home or self-care (01) ==
LOC: ER 23:46
DX: R45.851 Suicidal ideations (principal); J02.9 Acute pharyngitis, unspecified; Z20.822 Contact with and (suspected) exposure to COVID-19
CPT/HCPCS: 36415; 70360; 80053; 80305; 80320; 80329; 81001; 81025; 85025; 87811; 99285; J1100; J3490; Q9967

== ENCOUNTER 2023-10-16 10:40 | Inpatient (IN) | payer MEDICARE, MEDICAID ==
[~2023-10-16] VITALS: Ht 154.9 cm; Wt 145.7 kg
[2023-10-16 11:41] LABS: BASOPHILS # (AUTO) 0.1 X10'3 (0-0.2); EOSINOPHILS % (AUTO) 0 % (0-6); HEMOGLOBIN 13.6 g/dl (12.0-16.0)
[2023-10-16 11:44] LABS: BASOPHILS % (AUTO) 0.5 % (0-1); HEMATOCRIT 42.7 % (35.0-45.0); LYMPHOCYTES # (AUTO) 1.8 X10'3 (1.1-4.8); LYMPHOCYTES % (AUTO) 9.8 % (21-51); MEAN CORPUSCULAR HEMOGLOBIN 25.1 PG (27.0-31.0); MEAN CORPUSCULAR HGB CONC 31.9 g/dL (33.0-36.5); MEAN CORPUSCULAR VOLUME 78.6 FL (78-98); MEAN PLATELET VOLUME 6.9 FL (7.4-10.4); MONOCYTES # (AUTO) 1.4 X10'3 (0-0.9); MONOCYTES % (AUTO) 7.5 % (2-12); NEUTROPHILS # (AUTO) 15.5 X10'3 (1.8-7.7); NEUTROPHILS % (AUTO) 82.2 % (42-75); PLATELET COUNT 478 X10'3 (140-440); RED BLOOD COUNT 5.43 X10'6 (4.20-5.60); RED CELL DISTRIBUTION WIDTH 15.8 % (11.5-14.5); WHITE BLOOD COUNT 18.9 X10'3 (4.5-11.0)
[2023-10-16 11:59] LABS: URINE HCG NEGATIVE (NEG)
[2023-10-16 12:11] LABS: ANISOCYTOSIS 1+; MICROCYTOSIS 1+
[2023-10-16 12:12] LABS: PLATELET ESTIMATE INCREASED
[2023-10-16 12:13] LABS: URINE AMPHETAMINE SCREEN NEGATIVE (Neg); URINE BARBITUATE SCREEN NEGATIVE (Neg); URINE BENZODIAZEPINES SCREEN NEGATIVE (Neg); URINE CANNABINOID SCREEN NEGATIVE (Neg); URINE COCAINE SCREEN NEGATIVE (Neg); URINE METHADONE SCREEN NEGATIVE (Neg); URINE OPIATE SCREEN NEGATIVE (Neg); URINE PHENCYCLIDINE SCREEN NEGATIVE (Neg)
[2023-10-16 12:33] LABS: ALANINE AMINOTRANSFERASE 26 U/L (12-78); ALBUMIN 3.4 G/DL (3.4-5.0); ALBUMIN/GLOBULIN RATIO 0.7 (1.1-1.5); ALKALINE PHOSPHATASE 48 IU/L (46-116); ANION GAP 9 (8-16); ASPARTATE AMINO TRANSFERASE 16 U/L (10-37); BILIRUBIN,TOTAL 0.2 MG/DL (0.1-1.0); BLOOD UREA NITROGEN 17 MG/DL (7-18); BUN/CREATININE RATIO 21.5 (10.0-20.0); CALCIUM 9.6 MG/DL (8.5-10.1); CHLORIDE 100 MMOL/L (99-107); CREATININE 0.79 MG/DL (0.40-0.90); ETHANOL < 10 MG/DL (<10); GLUCOSE 151 MG/DL (70-104); POTASSIUM 3.7 MMOL/L (3.5-5.1); SODIUM 137 MMOL/L (135-145); TOTAL CARBON DIOXIDE 28.2 MMOL/L (24-32); TOTAL PROTEIN 8.2 G/DL (6.4-8.2); eCRCL 70 ML/MIN; eGFR 82 ML/MIN
[2023-10-16 13:14] LABS: BILIRUBIN,URINE NEGATIVE (Neg); CLARITY,URINE SLIGHTLY CLOUDY (Clear); COLOR,URINE YELLOW (Yellow); GLUCOSE, URINE NEGATIVE (Neg); KETONES,URINE NEGATIVE (Neg); LEUKOCYTE ESTERASE ,URINE TRACE (Neg); NITRITES, URINE NEGATIVE (Neg); OCCULT BLOOD,URINE TRACE-INTACT (Neg); PROTEIN,URINE NEGATIVE (Neg); UROBILINOGEN,URINE 0.2 E.U/dL (0.2-1.0)
[2023-10-16 13:17] LABS: UA COLLECTION TYPE CLN CATCH MIDSTREAM
[2023-10-16 13:27] LABS: SQUAMOUS EPITHELIAL CELL,UR MANY /LPF (FEW)
[2023-10-16 13:29] LABS: TRANSITIONAL EPI CELLS,URINE MODERATE /HPF
[2023-10-16 13:34] LABS: BACTERIA,URINE FEW /HPF (Neg)
[2023-10-16 15:14] LABS: BASOPHILS # (AUTO) 0.1 X10'3 (0-0.2); BASOPHILS % (AUTO) 0.4 % (0-1); EOSINOPHILS % (AUTO) 0.1 % (0-6); HEMATOCRIT 40.5 % (35.0-45.0); HEMOGLOBIN 12.9 g/dl (12.0-16.0); LYMPHOCYTES # (AUTO) 2.5 X10'3 (1.1-4.8); LYMPHOCYTES % (AUTO) 13.2 % (21-51); MEAN CORPUSCULAR HEMOGLOBIN 25.1 PG (27.0-31.0); MEAN CORPUSCULAR HGB CONC 31.9 g/dL (33.0-36.5); MEAN CORPUSCULAR VOLUME 78.8 FL (78-98); MEAN PLATELET VOLUME 6.6 FL (7.4-10.4); MONOCYTES # (AUTO) 1.5 X10'3 (0-0.9); MONOCYTES % (AUTO) 8.1 % (2-12); NEUTROPHILS # (AUTO) 14.7 X10'3 (1.8-7.7); NEUTROPHILS % (AUTO) 78.2 % (42-75); PLATELET COUNT 463 X10'3 (140-440); RED BLOOD COUNT 5.15 X10'6 (4.20-5.60); RED CELL DISTRIBUTION WIDTH 15.5 % (11.5-14.5); WHITE BLOOD COUNT 18.9 X10'3 (4.5-11.0)
[2023-10-16 17:52] VITALS: BP 121/77; PULSE 82; RESP 18; TEMP 97.8; O2SAT 98
[2023-10-16 19:10] VITALS: BP 121/75; PULSE 81; RESP 16; TEMP 97.4; O2SAT 92
[2023-10-16] MEDS ORDERED: GABA-530 PO (20:03)
[2023-10-16] MEDS ORDERED: CYCL5TAB PO (20:03)
[2023-10-16] MEDS ORDERED: SEMA0.258 SQ (20:03)
[2023-10-16] MEDS ORDERED: ESCI5TAB17 PO (20:03)
[2023-10-16] MEDS ORDERED: LORA10TA7 PO (20:03)
[2023-10-16] MEDS ORDERED: RIZA10TA28 PO (20:03)
[2023-10-16] MEDS ORDERED: albuterol 2.5 MG/3 ML nebule NEB PRN (21:05)
[2023-10-16] MEDS: nystatin 15 GM powder TP SCH (21:27)
[2023-10-16] MEDS ORDERED: SUMAtriptan 25 MG tablet PO PRN (22:12)
[2023-10-16] MEDS: metoclopramide 10mg tablet PO SCH (22:16)
[2023-10-16] MEDS: metFORMIN 500mg tablet PO SCH (22:16)
[2023-10-16] MEDS: cyclobenzaprine 10mg tablet PO PRN (22:16)
[2023-10-16] MEDS: gabapentin 100mg capsule PO SCH (22:16)
[2023-10-16] MEDS: quetiapine 100mg tablet PO SCH (22:16)
[2023-10-16] MEDS: hydrOXYzine 25 MG tablet PO PRN (22:16)
[2023-10-17] VITALS (7 sets, daily range): BP systolic 107–122; BP diastolic 57–69; PULSE 76–97; RESP 16–18; TEMP 98–98.6; O2SAT 93–98
[2023-10-17 07:40] LABS: BASOPHILS # (AUTO) 0.1 X10'3 (0-0.2); BASOPHILS % (AUTO) 0.4 % (0-1); EOSINOPHILS % (AUTO) 0.3 % (0-6); HEMATOCRIT 38.8 % (35.0-45.0); HEMOGLOBIN 12.3 g/dl (12.0-16.0); LYMPHOCYTES # (AUTO) 3.2 X10'3 (1.1-4.8); LYMPHOCYTES % (AUTO) 26.1 % (21-51); MEAN CORPUSCULAR HEMOGLOBIN 25.2 PG (27.0-31.0); MEAN CORPUSCULAR HGB CONC 31.8 g/dL (33.0-36.5); MEAN CORPUSCULAR VOLUME 79.4 FL (78-98); MEAN PLATELET VOLUME 6.9 FL (7.4-10.4); MONOCYTES # (AUTO) 0.8 X10'3 (0-0.9); MONOCYTES % (AUTO) 6.9 % (2-12); NEUTROPHILS % (AUTO) 66.3 % (42-75); PLATELET COUNT 371 X10'3 (140-440); RED BLOOD COUNT 4.88 X10'6 (4.20-5.60); RED CELL DISTRIBUTION WIDTH 15.7 % (11.5-14.5); WHITE BLOOD COUNT 12.1 X10'3 (4.5-11.0)
[2023-10-17] MEDS: fenofibrate 145mg tablet PO SCH (07:46)
[2023-10-17] MEDS: metoclopramide 10mg tablet PO SCH ×3 (07:47→20:25)
[2023-10-17] MEDS: atorvastatin 20mg tablet PO SCH (07:47)
[2023-10-17] MEDS: loratadine 10mg tablet PO SCH (07:47)
[2023-10-17] MEDS: docusate sod 100mg capsule PO SCH ×2 (07:47→20:25)
[2023-10-17] MEDS: metFORMIN 500mg tablet PO SCH ×2 (07:47→20:25)
[2023-10-17] MEDS: gabapentin 100mg capsule PO SCH ×3 (07:47→20:25)
[2023-10-17] MEDS: pantoprazole 40mg Tablet.DR PO SCH (07:47)
[2023-10-17] MEDS: nystatin 15 GM powder TP SCH ×3 (07:48→20:25)
[2023-10-17] MEDS: lamoTRIgine 100mg tablet PO SCH (07:53)
[2023-10-17] MEDS ORDERED: ESCITALOPRAM OXALATE 5 MG TABLET PO SCH (08:00)
[2023-10-17] MEDS ORDERED: FLU VACC QS2023-24(6MOS UP)/PF 60 MCG/0.5 ML SYRINGE IM ONE (13:00)
[2023-10-17 18:55] LABS: BILIRUBIN,URINE NEGATIVE (Neg); CLARITY,URINE CLOUDY (Clear); COLOR,URINE YELLOW (Yellow); GLUCOSE, URINE NEGATIVE (Neg); KETONES,URINE NEGATIVE (Neg); LEUKOCYTE ESTERASE ,URINE NEGATIVE (Neg); NITRITES, URINE NEGATIVE (Neg); OCCULT BLOOD,URINE NEGATIVE (Neg); PROTEIN,URINE NEGATIVE (Neg); UROBILINOGEN,URINE 0.2 E.U/dL (0.2-1.0)
[2023-10-17 18:56] LABS: UA COLLECTION TYPE CLN CATCH MIDSTREAM
[2023-10-17 19:04] LABS: RBC,URINE 0-2 /HPF (0-2)
[2023-10-17 19:05] LABS: BACTERIA,URINE 2+ /HPF (Neg); SQUAMOUS EPITHELIAL CELL,UR MANY /LPF (FEW)
[2023-10-17] MEDS: cyclobenzaprine 10mg tablet PO PRN (20:25)
[2023-10-17] MEDS: hydrOXYzine 25 MG tablet PO PRN (20:25)
[2023-10-17] MEDS: quetiapine 100mg tablet PO SCH (20:25)
[2023-10-17 22:19] LABS: BILIRUBIN,URINE NEGATIVE (Neg); CLARITY,URINE SLIGHTLY CLOUDY (Clear); COLOR,URINE YELLOW (Yellow); GLUCOSE, URINE NEGATIVE (Neg); KETONES,URINE NEGATIVE (Neg); LEUKOCYTE ESTERASE ,URINE NEGATIVE (Neg); NITRITES, URINE NEGATIVE (Neg); OCCULT BLOOD,URINE NEGATIVE (Neg); PROTEIN,URINE NEGATIVE (Neg); UROBILINOGEN,URINE 0.2 E.U/dL (0.2-1.0)
[2023-10-17 22:30] LABS: UA COLLECTION TYPE STRAIGHT CATH
[2023-10-17 22:32] LABS: MUCUS STRANDS MANY /LPF (Neg); SQUAMOUS EPITHELIAL CELL,UR MODERATE /LPF (FEW); TRANSITIONAL EPI CELLS,URINE FEW /HPF
[2023-10-17 22:33] LABS: BACTERIA,URINE FEW /HPF (Neg); RBC,URINE 0-2 /HPF (0-2); RENAL CELLS, URINE FEW /HPF; WBC,URINE 0-4 /HPF (0-4)
[2023-10-18 07:00] VITALS: BP 113/60; PULSE 72; RESP 16; TEMP 97.4; O2SAT 94
[2023-10-18] MEDS: docusate sod 100mg capsule PO SCH ×2 (07:32→20:20)
[2023-10-18] MEDS: fenofibrate 145mg tablet PO SCH (07:32)
[2023-10-18] MEDS: metoclopramide 10mg tablet PO SCH ×3 (07:32→20:20)
[2023-10-18] MEDS: atorvastatin 20mg tablet PO SCH (07:32)
[2023-10-18] MEDS: lamoTRIgine 100mg tablet PO SCH (07:32)
[2023-10-18] MEDS: pantoprazole 40mg Tablet.DR PO SCH (07:32)
[2023-10-18] MEDS: nystatin 15 GM powder TP SCH ×3 (07:33→20:23)
[2023-10-18] MEDS: metFORMIN 500mg tablet PO SCH ×2 (07:33→20:21)
[2023-10-18] MEDS: loratadine 10mg tablet PO SCH (07:33)
[2023-10-18] MEDS: gabapentin 100mg capsule PO SCH ×3 (07:33→20:21)
[2023-10-18 14:28] VITALS: PULSE 84; RESP 16; O2SAT 94
[2023-10-18 19:27] VITALS: BP 113/66; PULSE 83; RESP 16; TEMP 96.7; O2SAT 96
[2023-10-18 19:28] VITALS: RESP 16; O2SAT 93
[2023-10-18] MEDS: quetiapine 100mg tablet PO SCH (20:21)
[2023-10-19 07:00] VITALS: RESP 16; O2SAT 96
[2023-10-19 07:41] LABS: BILIRUBIN,URINE NEGATIVE (Neg); CLARITY,URINE SLIGHTLY CLOUDY (Clear); COLOR,URINE YELLOW (Yellow); GLUCOSE, URINE NEGATIVE (Neg); KETONES,URINE NEGATIVE (Neg); LEUKOCYTE ESTERASE ,URINE NEGATIVE (Neg); NITRITES, URINE NEGATIVE (Neg); OCCULT BLOOD,URINE LARGE (Neg); PH,URINE 5.5 (4.8-8.0); PROTEIN,URINE NEGATIVE (Neg); UROBILINOGEN,URINE 0.2 E.U/dL (0.2-1.0)
[2023-10-19] MEDS: pantoprazole 40mg Tablet.DR PO SCH (07:45)
[2023-10-19] MEDS: fenofibrate 145mg tablet PO SCH (07:46)
[2023-10-19] MEDS: gabapentin 100mg capsule PO SCH ×3 (07:46→20:46)
[2023-10-19] MEDS: metoclopramide 10mg tablet PO SCH ×3 (07:46→20:46)
[2023-10-19] MEDS: docusate sod 100mg capsule PO SCH ×2 (07:46→20:47)
[2023-10-19] MEDS: lamoTRIgine 100mg tablet PO SCH (07:46)
[2023-10-19] MEDS: metFORMIN 500mg tablet PO SCH ×2 (07:47→20:47)
[2023-10-19] MEDS: ESCITALOPRAM OXALATE 5 MG TABLET PO SCH (07:47)
[2023-10-19] MEDS: atorvastatin 20mg tablet PO SCH (07:47)
[2023-10-19] MEDS: loratadine 10mg tablet PO SCH (07:47)
[2023-10-19 08:00] VITALS: BP 109/64; PULSE 68; RESP 16; TEMP 97.9; O2SAT 96
[2023-10-19] MEDS: nystatin 15 GM powder TP SCH ×3 (08:00→20:47)
[2023-10-19 08:02] LABS: UA COLLECTION TYPE CLN CATCH MIDSTREAM
[2023-10-19 08:06] LABS: BACTERIA,URINE 2+ /HPF (Neg); MUCUS STRANDS MODERATE /LPF (Neg); SQUAMOUS EPITHELIAL CELL,UR MANY /LPF (FEW)
[2023-10-19 11:30] VITALS: PULSE 79; RESP 16; O2SAT 97
[2023-10-19 12:06] LABS: HEMOGLOBIN A1C 6.8 % (4.5-6.2)
[2023-10-19 12:13] LABS: BASOPHILS % (AUTO) 0.1 % (0-1); EOSINOPHILS # (AUTO) 0.2 X10'3 (0-0.9); EOSINOPHILS % (AUTO) 1.5 % (0-6); HEMATOCRIT 38.2 % (35.0-45.0); LYMPHOCYTES # (AUTO) 2.3 X10'3 (1.1-4.8); LYMPHOCYTES % (AUTO) 20.1 % (21-51); MEAN CORPUSCULAR HEMOGLOBIN 24.9 PG (27.0-31.0); MEAN CORPUSCULAR HGB CONC 31.4 g/dL (33.0-36.5); MEAN CORPUSCULAR VOLUME 79.5 FL (78-98); MONOCYTES # (AUTO) 0.9 X10'3 (0-0.9); MONOCYTES % (AUTO) 8.1 % (2-12); NEUTROPHILS # (AUTO) 7.9 X10'3 (1.8-7.7); NEUTROPHILS % (AUTO) 70.2 % (42-75); PLATELET COUNT 368 X10'3 (140-440); RED BLOOD COUNT 4.81 X10'6 (4.20-5.60); RED CELL DISTRIBUTION WIDTH 15.7 % (11.5-14.5); WHITE BLOOD COUNT 11.3 X10'3 (4.5-11.0)
[2023-10-19 12:18] LABS: ALANINE AMINOTRANSFERASE 31 U/L (12-78); ALBUMIN 2.9 G/DL (3.4-5.0); ALBUMIN/GLOBULIN RATIO 0.7 (1.1-1.5); ALKALINE PHOSPHATASE 38 IU/L (46-116); ANION GAP 3 (8-16); ASPARTATE AMINO TRANSFERASE 18 U/L (10-37); BILIRUBIN,TOTAL 0.3 MG/DL (0.1-1.0); BLOOD UREA NITROGEN 17 MG/DL (7-18); CALCIUM 8.9 MG/DL (8.5-10.1); CHLORIDE 102 MMOL/L (99-107); CHOL/HDL RATIO 3.4 (0.00-4.99); CHOLESTEROL 159 MG/DL (0-200); CREATININE 0.81 MG/DL (0.40-0.90); GLUCOSE 111 MG/DL (70-104); HDL CHOLESTEROL 47 MG/DL (35-60); LDL CHOLESTEROL 92 MG/DL (50-100); POTASSIUM 3.6 MMOL/L (3.5-5.1); SODIUM 141 MMOL/L (135-145); TOTAL PROTEIN 7.1 G/DL (6.4-8.2); TRIGLYCERIDES 94 MG/DL (20-135); eCRCL 72 ML/MIN; eGFR 80 ML/MIN
[2023-10-19] MEDS: ciprofloxacin 250mg tablet PO SCH ×2 (13:10→20:46)
[2023-10-19 19:00] VITALS: BP 108/45; PULSE 88; RESP 16; TEMP 97.9; O2SAT 94
[2023-10-19] MEDS: quetiapine 100mg tablet PO SCH (20:47)
[2023-10-20] MEDS: acetaminophen 325mg tablet PO PRN ×2 (03:31→15:22)
[2023-10-20 07:00] VITALS: RESP 16; O2SAT 97
[2023-10-20] MEDS: ciprofloxacin 250mg tablet PO SCH ×2 (07:29→20:00)
[2023-10-20] MEDS: loratadine 10mg tablet PO SCH (07:30)
[2023-10-20] MEDS: lamoTRIgine 100mg tablet PO SCH (07:30)
[2023-10-20] MEDS: docusate sod 100mg capsule PO SCH ×2 (07:30→20:00)
[2023-10-20] MEDS: metFORMIN 500mg tablet PO SCH ×2 (07:30→20:00)
[2023-10-20] MEDS: fenofibrate 145mg tablet PO SCH (07:31)
[2023-10-20] MEDS: ESCITALOPRAM OXALATE 5 MG TABLET PO SCH (07:31)
[2023-10-20] MEDS: atorvastatin 20mg tablet PO SCH (07:31)
[2023-10-20] MEDS: gabapentin 100mg capsule PO SCH ×3 (07:31→21:00)
[2023-10-20] MEDS: metoclopramide 10mg tablet PO SCH ×3 (07:31→21:00)
[2023-10-20] MEDS: pantoprazole 40mg Tablet.DR PO SCH (07:31)
[2023-10-20 08:00] VITALS: BP 110/66; PULSE 80; RESP 16; TEMP 97.4; O2SAT 97
[2023-10-20] MEDS: nystatin 15 GM powder TP SCH ×3 (08:00→21:00)
[2023-10-20] MEDS: cyclobenzaprine 10mg tablet PO PRN (15:21)
[2023-10-20 15:26] VITALS: PULSE 100; RESP 20; O2SAT 95
[2023-10-20 19:37] VITALS: RESP 18; O2SAT 95
[2023-10-20 19:41] VITALS: BP 119/82; PULSE 84; RESP 18; TEMP 97; O2SAT 95
[2023-10-20] MEDS: quetiapine 100mg tablet PO SCH (21:00)
[2023-10-21 07:00] VITALS: BP 107/71; PULSE 72; RESP 16; TEMP 97.6; O2SAT 92
[2023-10-21] MEDS: docusate sod 100mg capsule PO SCH ×2 (07:09→20:47)
[2023-10-21] MEDS: metFORMIN 500mg tablet PO SCH ×2 (07:09→20:47)
[2023-10-21] MEDS: gabapentin 100mg capsule PO SCH ×3 (07:09→20:47)
[2023-10-21] MEDS: ESCITALOPRAM OXALATE 5 MG TABLET PO SCH (07:09)
[2023-10-21] MEDS: fenofibrate 145mg tablet PO SCH (07:09)
[2023-10-21] MEDS: ciprofloxacin 250mg tablet PO SCH ×2 (07:09→20:47)
[2023-10-21] MEDS: atorvastatin 20mg tablet PO SCH (07:09)
[2023-10-21] MEDS: lamoTRIgine 100mg tablet PO SCH (07:09)
[2023-10-21] MEDS: loratadine 10mg tablet PO SCH (07:10)
[2023-10-21] MEDS: pantoprazole 40mg Tablet.DR PO SCH (07:10)
[2023-10-21] MEDS: nystatin 15 GM powder TP SCH ×3 (07:11→20:57)
[2023-10-21] MEDS: metoclopramide 10mg tablet PO SCH ×3 (07:18→20:47)
[2023-10-21 07:50] VITALS: PULSE 72; RESP 18; O2SAT 95
[2023-10-21] MEDS ORDERED: ESCITALOPRAM OXALATE 5 MG TABLET PO ONE (11:30)
[2023-10-21] MEDS ORDERED: ESCITALOPRAM 10 mg tablet 10 MG TABLET PO ONE (12:50)
[2023-10-21 19:46] VITALS: BP 144/69; PULSE 81; RESP 17; TEMP 97.2; O2SAT 93
[2023-10-21] MEDS: quetiapine 100mg tablet PO SCH (20:46)
[2023-10-21] MEDS: cyclobenzaprine 10mg tablet PO PRN (20:56)
[2023-10-21 21:24] VITALS: RESP 18; O2SAT 93
[2023-10-22 07:00] VITALS: BP 129/63; PULSE 78; RESP 16; TEMP 98.4; O2SAT 96
[2023-10-22] MEDS: nystatin 15 GM powder TP SCH ×3 (07:16→21:25)
[2023-10-22] MEDS: lamoTRIgine 100mg tablet PO SCH (07:17)
[2023-10-22] MEDS: gabapentin 100mg capsule PO SCH ×3 (07:17→20:32)
[2023-10-22] MEDS: atorvastatin 20mg tablet PO SCH (07:17)
[2023-10-22] MEDS: fenofibrate 145mg tablet PO SCH (07:17)
[2023-10-22] MEDS: docusate sod 100mg capsule PO SCH ×2 (07:17→20:33)
[2023-10-22] MEDS: pantoprazole 40mg Tablet.DR PO SCH (07:17)
[2023-10-22] MEDS: metoclopramide 10mg tablet PO SCH ×3 (07:17→20:32)
[2023-10-22] MEDS: ciprofloxacin 250mg tablet PO SCH ×2 (07:17→20:32)
[2023-10-22] MEDS: loratadine 10mg tablet PO SCH (07:17)
[2023-10-22] MEDS: metFORMIN 500mg tablet PO SCH ×2 (07:17→20:33)
[2023-10-22] MEDS: ESCITALOPRAM 10 mg tablet 10 MG TABLET PO SCH (07:18)
[2023-10-22 11:02] VITALS: PULSE 78; RESP 18; O2SAT 96
[2023-10-22 19:00] VITALS: RESP 16; O2SAT 91
[2023-10-22 19:02] VITALS: BP 122/79; PULSE 88; RESP 17; TEMP 97.6; O2SAT 91
[2023-10-22] MEDS: quetiapine 100mg tablet PO SCH (20:33)
[2023-10-22] MEDS: cyclobenzaprine 10mg tablet PO PRN (22:00)
[2023-10-23 07:00] VITALS: RESP 16; O2SAT 98
[2023-10-23] MEDS: atorvastatin 20mg tablet PO SCH (07:54)
[2023-10-23] MEDS: lamoTRIgine 100mg tablet PO SCH (07:55)
[2023-10-23] MEDS: metFORMIN 500mg tablet PO SCH ×2 (07:55→20:29)
[2023-10-23] MEDS: metoclopramide 10mg tablet PO SCH ×3 (07:55→20:28)
[2023-10-23] MEDS: fenofibrate 145mg tablet PO SCH (07:55)
[2023-10-23] MEDS: ciprofloxacin 250mg tablet PO SCH ×2 (07:55→20:29)
[2023-10-23] MEDS: gabapentin 100mg capsule PO SCH ×3 (07:55→20:29)
[2023-10-23] MEDS: ESCITALOPRAM 10 mg tablet 10 MG TABLET PO SCH (07:56)
[2023-10-23] MEDS: docusate sod 100mg capsule PO SCH ×2 (07:56→20:28)
[2023-10-23] MEDS: pantoprazole 40mg Tablet.DR PO SCH (07:56)
[2023-10-23] MEDS: loratadine 10mg tablet PO SCH (07:56)
[2023-10-23 08:00] VITALS: BP 102/75; PULSE 74; RESP 16; TEMP 97.7; O2SAT 98
[2023-10-23] MEDS: nystatin 15 GM powder TP SCH ×2 (08:00→12:29)
[2023-10-23] MEDS: acetaminophen 325mg tablet PO PRN (08:10)
[2023-10-23 08:27] VITALS: PULSE 88; RESP 18; O2SAT 99
[2023-10-23] MEDS ORDERED: ESCI-8 PO (19:05)
[2023-10-23 19:47] VITALS: BP 124/86; PULSE 87; RESP 18; TEMP 97.8; O2SAT 95
[2023-10-23] MEDS: cyclobenzaprine 10mg tablet PO PRN (20:29)
[2023-10-23] MEDS: quetiapine 100mg tablet PO SCH (20:29)
[2023-10-24 07:00] VITALS: RESP 16; O2SAT 94
[2023-10-24] MEDS: ciprofloxacin 250mg tablet PO SCH (07:52)
[2023-10-24] MEDS: lamoTRIgine 100mg tablet PO SCH (07:52)
[2023-10-24] MEDS: loratadine 10mg tablet PO SCH (07:53)
[2023-10-24] MEDS: ESCITALOPRAM 10 mg tablet 10 MG TABLET PO SCH (07:53)
[2023-10-24] MEDS: pantoprazole 40mg Tablet.DR PO SCH (07:53)
[2023-10-24] MEDS: metoclopramide 10mg tablet PO SCH (07:53)
[2023-10-24] MEDS: docusate sod 100mg capsule PO SCH (07:53)
[2023-10-24] MEDS: atorvastatin 20mg tablet PO SCH (07:53)
[2023-10-24] MEDS: metFORMIN 500mg tablet PO SCH (07:53)
[2023-10-24] MEDS: fenofibrate 145mg tablet PO SCH (07:54)
[2023-10-24] MEDS: gabapentin 100mg capsule PO SCH (07:54)
[2023-10-24 08:00] VITALS: BP 138/81; PULSE 75; RESP 16; TEMP 98.4; O2SAT 94
== END 2023-10-24 10:21 | disposition home or self-care (01) | DRG 885 ==
LOC: ER 10:41 → ED HOLD 13:10 → ADULT MH 17:33
PROVIDERS: ADMIT Psychiatry & Neurology Psychiatry; ATTEND Psychiatry & Neurology Psychiatry
PROC: 5A09357 Assistance with Respiratory Ventilation, Less than 24 Consecutive Hours, Continuous Positive Airway Pressure (ICD-10-PCS; 2023-10-17)
PROC: GZHZZZZ Group Psychotherapy (ICD-10-PCS; principal; 2023-10-18)
DX: F33.9 Major depressive disorder, recurrent, unspecified (principal); F79 Unspecified intellectual disabilities; R45.851 Suicidal ideations; N39.0 Urinary tract infection, site not specified; Z68.44 Body mass index [BMI] 60.0-69.9, adult; F41.1 Generalized anxiety disorder; E11.9 Type 2 diabetes mellitus without complications; G43.909 Migraine, unspecified, not intractable, without status migrainosus; G47.33 Obstructive sleep apnea (adult) (pediatric); E78.00 Pure hypercholesterolemia, unspecified; K21.9 Gastro-esophageal reflux disease without esophagitis; J44.9 Chronic obstructive pulmonary disease, unspecified; F41.9 Anxiety disorder, unspecified; E66.01 Morbid (severe) obesity due to excess calories; F20.9 Schizophrenia, unspecified; F43.10 Post-traumatic stress disorder, unspecified; Z20.822 Contact with and (suspected) exposure to COVID-19; F60.9 Personality disorder, unspecified; G89.29 Other chronic pain; M54.9 Dorsalgia, unspecified; Z81.8 Family history of other mental and behavioral disorders; Z82.5 Family history of asthma and other chronic lower respiratory diseases; Z82.49 Family history of ischemic heart disease and other diseases of the circulatory system; Z79.899 Other long term (current) drug therapy; Z88.6 Allergy status to analgesic agent; Z90.49 Acquired absence of other specified parts of digestive tract
CPT/HCPCS: 36415; 70360; 71045; 80053; 80061; 80305; 80320; 80329; 81001; 81025; 82948; 83036; 85008; 85025; 87081; 87811; 90686; 93005; 94660; 94760; 99285; A4353; J1100; J3490; Q0177; Q9967

== ENCOUNTER 2023-10-31 00:21 | Emergency (ER) | payer MEDICARE, MEDICAID ==
[~2023-10-31] VITALS: Ht 154.9 cm; Wt 149.1 kg
[~2023-10-31 00:21] MED LIST changes: -CARI3CAP PO; +CYCL5TAB PO; +ESCI-8 PO; +GABA-530 PO; +LORA10TA7 PO; +RIZA10TA28 PO; +SEMA0.258 SQ
[2023-10-31] MEDS ORDERED: acetaminophen 325mg tablet PO ONE (01:25)
[2023-10-31] MEDS ORDERED: ibuprofen tablet 400 MG TABLET PO ONE (01:25)
[2023-10-31] MEDS ORDERED: HYDR-3965 PO (02:07)
[2023-10-31 02:28] VITALS: BP 130/89; PULSE 81; RESP 16; TEMP 98.4; O2SAT 95
== END 2023-10-31 02:23 | disposition home or self-care (01) ==
LOC: ER 00:22
DX: M25.562 Pain in left knee (principal); G43.909 Migraine, unspecified, not intractable, without status migrainosus; J44.9 Chronic obstructive pulmonary disease, unspecified; E11.9 Type 2 diabetes mellitus without complications; G89.29 Other chronic pain; E78.00 Pure hypercholesterolemia, unspecified; Z72.89 Other problems related to lifestyle; Z79.899 Other long term (current) drug therapy; Z79.2 Long term (current) use of antibiotics
CPT/HCPCS: 73564; 99283

== ENCOUNTER 2023-11-19 11:03 | Emergency (ER) | payer MEDICARE, MEDICAID ==
[~2023-11-19] VITALS: Ht 154.9 cm; Wt 149.1 kg
[~2023-11-19 11:03] MED LIST changes: +HYDR-3965 PO
[2023-11-19] MEDS ORDERED: AMOX-580 PO (13:50)
[2023-11-19] MEDS ORDERED: ketorolac trometh inj. 60 MG/2 ML VIAL IM ONE (13:55)
[2023-11-19 14:31] VITALS: BP 128/78; PULSE 81; RESP 18; TEMP 98; O2SAT 93
== END 2023-11-19 14:20 | disposition home or self-care (01) ==
LOC: ER 11:03
DX: J32.9 Chronic sinusitis, unspecified (principal); R51.9 Headache, unspecified; E78.00 Pure hypercholesterolemia, unspecified; J45.909 Unspecified asthma, uncomplicated; K21.9 Gastro-esophageal reflux disease without esophagitis; E11.9 Type 2 diabetes mellitus without complications; F41.9 Anxiety disorder, unspecified; F32.A Depression, unspecified; F20.9 Schizophrenia, unspecified; Z72.89 Other problems related to lifestyle; Z88.6 Allergy status to analgesic agent; Z79.899 Other long term (current) drug therapy
CPT/HCPCS: 96372; 99283; J1885

== ENCOUNTER 2023-12-25 23:48 | Emergency (ER) | payer MEDICARE, MEDICAID ==
[~2023-12-25] VITALS: Ht 154.9 cm; Wt 154.8 kg
[~2023-12-25 23:48] MED LIST changes: -HYDR-3965 PO
[2023-12-25 23:54] VITALS: BP 147/90; TEMP 97.7
[2023-12-26] MEDS: HYDROcodone/acetaminophen 5mg/325mg tablet PO ONE (03:59)
[2023-12-26 04:03] VITALS: PULSE 89; RESP 16; O2SAT 98
[2023-12-27] MEDS ORDERED: QUET-1 PO (10:22)
== END 2023-12-26 04:05 | disposition home or self-care (01) ==
LOC: ER 23:49
DX: M54.59 Other low back pain (principal); E78.00 Pure hypercholesterolemia, unspecified; J44.9 Chronic obstructive pulmonary disease, unspecified; G89.29 Other chronic pain; M54.9 Dorsalgia, unspecified; F31.9 Bipolar disorder, unspecified; F50.9 Eating disorder, unspecified; Z88.8 Allergy status to other drugs, medicaments and biological substances; Z79.899 Other long term (current) drug therapy
CPT/HCPCS: 99284

== ENCOUNTER 2023-12-27 09:36 | Day surgery (SDC) | payer MEDICARE, MEDICAID ==
[~2023-12-27] VITALS: Ht 154.9 cm; Wt 155.0 kg
[~2023-12-27 09:36] MED LIST changes: +MIDAZolam 1 MG/ML 5ML VIAL IV PRN; +diphenhydrAMINE 50 mg/ml inj IV PRN; +fentaNYL/PF 50MCG/1 ML 2ML syringe IV PRN; +normal saline 1000ml 1,000 ML IV ONE; +simethicone 40mg/0.6ml oral drops 30ml PO ONE
[2023-12-27 10:00] VITALS: BP 153/98; PULSE 95; RESP 16
[2023-12-27] MEDS ORDERED: QUET-1 PO (10:22)
[2023-12-27] MEDS ORDERED: LIDOcaine 2% Viscous 15ml cup TP ONE (11:00)
[2023-12-27 11:13] VITALS: BP 134/85; PULSE 84; RESP 17; O2SAT 94
[2023-12-27 11:20] VITALS: BP 137/80; PULSE 84; RESP 16; O2SAT 92
[2023-12-27 11:30] VITALS: BP 122/75; PULSE 83; RESP 15; O2SAT 96
[2023-12-27 11:40] VITALS: BP 119/80; PULSE 82; RESP 14; O2SAT 95
[2023-12-27 11:50] VITALS: BP 123/73; PULSE 82; RESP 18; O2SAT 97
== END 2023-12-27 12:04 | disposition home or self-care (01) ==
LOC: GI LAB 09:36
PROVIDERS: ATTEND Internal Medicine Gastroenterology
DX: R13.10 Dysphagia, unspecified (principal); R12 Heartburn; K22.89 Other specified disease of esophagus; K29.70 Gastritis, unspecified, without bleeding; E11.9 Type 2 diabetes mellitus without complications; I10 Essential (primary) hypertension; E66.9 Obesity, unspecified; Z68.44 Body mass index [BMI] 60.0-69.9, adult; Z88.8 Allergy status to other drugs, medicaments and biological substances; Z79.899 Other long term (current) drug therapy; Z79.84 Long term (current) use of oral hypoglycemic drugs
CPT/HCPCS: 43239; J1200; J2250; J3010; J7030; Z7512; 88305; 99152; A4620

== ENCOUNTER 2024-01-03 13:44 | Emergency (ER) | payer MEDICARE, MEDICAID ==
[~2024-01-03] VITALS: Ht 154.9 cm; Wt 154.4 kg
[~2024-01-03 13:44] MED LIST changes: -MIDAZolam 1 MG/ML 5ML VIAL IV PRN; -diphenhydrAMINE 50 mg/ml inj IV PRN; -fentaNYL/PF 50MCG/1 ML 2ML syringe IV PRN; -normal saline 1000ml 1,000 ML IV ONE; -simethicone 40mg/0.6ml oral drops 30ml PO ONE
[2024-01-03] MEDS ORDERED: ketorolac trometh inj. 60 MG/2 ML VIAL IM ONE (15:15)
[2024-01-03] MEDS: ketorolac trometh. 30mg/ml inj. IM ONE (15:55)
[2024-01-03 16:43] VITALS: BP 121/84; PULSE 81; RESP 17; TEMP 98.4; O2SAT 96
== END 2024-01-03 16:45 | disposition home or self-care (01) ==
LOC: ER 13:46
DX: R07.89 Other chest pain (principal); E78.00 Pure hypercholesterolemia, unspecified; G43.909 Migraine, unspecified, not intractable, without status migrainosus; J45.909 Unspecified asthma, uncomplicated; J44.9 Chronic obstructive pulmonary disease, unspecified; K21.9 Gastro-esophageal reflux disease without esophagitis; E11.9 Type 2 diabetes mellitus without complications; F32.9 Major depressive disorder, single episode, unspecified; F41.9 Anxiety disorder, unspecified; F20.9 Schizophrenia, unspecified; Z90.49 Acquired absence of other specified parts of digestive tract; Z88.8 Allergy status to other drugs, medicaments and biological substances
CPT/HCPCS: 71101; 93005; 96372; 99283; J1885

== ENCOUNTER 2024-02-05 15:13 | Emergency (ER) | payer MEDICARE, MEDICAID ==
[~2024-02-05] VITALS: Ht 154.9 cm; Wt 157.9 kg
[2024-02-05 15:17] VITALS: BP 144/90; PULSE 85; RESP 22; TEMP 97.9; O2SAT 95
[2024-02-05] MEDS ORDERED: ketorolac trometh inj. 60 MG/2 ML VIAL IM ONE (15:25)
[2024-02-05] MEDS ORDERED: NAPR-56 PO (15:25)
[2024-02-05] MEDS: ketorolac tromethamine 15mg/ml inj. IM ONE (15:36)
== END 2024-02-05 15:37 | disposition home or self-care (01) ==
LOC: ER 15:13
DX: M54.50 Low back pain, unspecified (principal); G43.909 Migraine, unspecified, not intractable, without status migrainosus; E78.00 Pure hypercholesterolemia, unspecified; J45.909 Unspecified asthma, uncomplicated; J44.9 Chronic obstructive pulmonary disease, unspecified; G47.30 Sleep apnea, unspecified; K21.9 Gastro-esophageal reflux disease without esophagitis; E11.9 Type 2 diabetes mellitus without complications; G89.29 Other chronic pain; M54.9 Dorsalgia, unspecified; F41.9 Anxiety disorder, unspecified; F20.9 Schizophrenia, unspecified; Z90.49 Acquired absence of other specified parts of digestive tract; F32.9 Major depressive disorder, single episode, unspecified; Z88.8 Allergy status to other drugs, medicaments and biological substances; Z91.018 Allergy to other foods; S33.5XXA Sprain of ligaments of lumbar spine, initial encounter
CPT/HCPCS: 96372; 99283; J1885

== ENCOUNTER 2024-03-14 08:12 | Emergency (ER) | payer MEDICARE, MEDICAID ==
[~2024-03-14] VITALS: Ht 154.9 cm; Wt 149.2 kg
[2024-03-14] MEDS: bisacodyl 10mg suppository rectal RC STA (10:34)
[2024-03-14] MEDS: lactulose 20gm/30ml cup PO ONE (10:34)
[2024-03-14 10:37] VITALS: BP 98/56; PULSE 92; RESP 16; TEMP 98.2; O2SAT 97
== END 2024-03-14 19:34 | disposition home or self-care (01) ==
LOC: ER 08:12
DX: K59.00 Constipation, unspecified (principal); G43.909 Migraine, unspecified, not intractable, without status migrainosus; E78.00 Pure hypercholesterolemia, unspecified; J45.909 Unspecified asthma, uncomplicated; J44.9 Chronic obstructive pulmonary disease, unspecified; K21.9 Gastro-esophageal reflux disease without esophagitis; E11.9 Type 2 diabetes mellitus without complications; Z88.6 Allergy status to analgesic agent; Z88.8 Allergy status to other drugs, medicaments and biological substances; Z79.899 Other long term (current) drug therapy; Z90.49 Acquired absence of other specified parts of digestive tract
CPT/HCPCS: 99283

== ENCOUNTER 2024-04-05 16:28 | Emergency (ER) | payer MEDICARE, MEDICAID ==
[~2024-04-05] VITALS: Ht 154.9 cm; Wt 149.1 kg
[2024-04-05 17:14] LABS: ALANINE AMINOTRANSFERASE 32 U/L (12-78); ALBUMIN 3.8 G/DL (3.4-5.0); ALBUMIN/GLOBULIN RATIO 0.8 (1.1-1.5); ALKALINE PHOSPHATASE 41 IU/L (46-116); ANION GAP 7 (8-16); ASPARTATE AMINO TRANSFERASE 21 U/L (10-37); BILIRUBIN,TOTAL 0.4 MG/DL (0.1-1.0); BLOOD UREA NITROGEN 11 MG/DL (7-18); BUN/CREATININE RATIO 12.9 (10.0-20.0); CALCIUM 9.8 MG/DL (8.5-10.1); CHLORIDE 102 MMOL/L (99-107); CREATININE 0.85 MG/DL (0.40-0.90); GLUCOSE 114 MG/DL (70-104); SODIUM 139 MMOL/L (135-145); TOTAL CARBON DIOXIDE 29.6 MMOL/L (24-32); TOTAL PROTEIN 8.5 G/DL (6.4-8.2); eCRCL 68 ML/MIN; eGFR 75 ML/MIN
[2024-04-05 17:21] LABS: PRO BRAIN NATRIURETIC PEPTIDE < 30 PG/ML (0-125)
[2024-04-05 17:28] LABS: POTASSIUM 4.2 MMOL/L (3.5-5.1)
[2024-04-05 17:34] LABS: HEMATOCRIT 40.4 % (35.0-45.0); MEAN CORPUSCULAR HEMOGLOBIN 24.1 PG (27.0-31.0); MEAN CORPUSCULAR HGB CONC 32.2 g/dL (33.0-36.5); MEAN CORPUSCULAR VOLUME 74.9 FL (78-98); MEAN PLATELET VOLUME 7.1 FL (7.4-10.4); PLATELET COUNT 413 X10'3 (140-440); RED CELL DISTRIBUTION WIDTH 18.6 % (11.5-14.5); WHITE BLOOD COUNT 12.6 X10'3 (4.5-11.0)
[2024-04-05] MEDS ORDERED: CYCL-1 PO (17:43)
[2024-04-05 17:51] LABS: ANISOCYTOSIS 2+; HYPOCHROMASIA 1+; MICROCYTOSIS 1+; PLATELET ESTIMATE NORMAL; TOTAL CELLS COUNTED 100
[2024-04-05 17:54] LABS: POIKILOCYTOSIS FEW; POLYCHROMASIA FEW
[2024-04-05 18:12] VITALS: BP 133/86; PULSE 80; RESP 15; TEMP 98.6; O2SAT 97
== END 2024-04-05 18:05 | disposition home or self-care (01) ==
LOC: ER 16:28
DX: R07.89 Other chest pain (principal); G43.819 Other migraine, intractable, without status migrainosus; E78.00 Pure hypercholesterolemia, unspecified; J45.909 Unspecified asthma, uncomplicated; J44.9 Chronic obstructive pulmonary disease, unspecified; G47.30 Sleep apnea, unspecified; K21.9 Gastro-esophageal reflux disease without esophagitis; E11.9 Type 2 diabetes mellitus without complications; G89.29 Other chronic pain; M54.9 Dorsalgia, unspecified; F41.9 Anxiety disorder, unspecified; F32.A Depression, unspecified; F20.9 Schizophrenia, unspecified; Z90.49 Acquired absence of other specified parts of digestive tract; Z98.890 Other specified postprocedural states; Z72.89 Other problems related to lifestyle; Z88.8 Allergy status to other drugs, medicaments and biological substances; Z79.899 Other long term (current) drug therapy; Z79.84 Long term (current) use of oral hypoglycemic drugs
CPT/HCPCS: 36415; 71045; 80053; 83880; 84484; 85007; 85025; 93005; 99285

== ENCOUNTER 2024-04-15 20:23 | Emergency (ER) | payer MEDICARE, MEDICAID ==
[~2024-04-15] VITALS: Ht 154.9 cm; Wt 153.8 kg
[~2024-04-15 20:23] MED LIST changes: +CYCL-1 PO
[2024-04-15] MEDS: ondansetron/PF 4mg/2ml inj IV ONE (20:50)
[2024-04-15 21:33] LABS: BILIRUBIN,URINE NEGATIVE (Neg); CLARITY,URINE CLEAR (Clear); COLOR,URINE YELLOW (Yellow); GLUCOSE, URINE NEGATIVE (Neg); KETONES,URINE NEGATIVE (Neg); LEUKOCYTE ESTERASE ,URINE NEGATIVE (Neg); NITRITES, URINE NEGATIVE (Neg); OCCULT BLOOD,URINE MODERATE (Neg); PH,URINE 6.5 (4.8-8.0); PROTEIN,URINE NEGATIVE (Neg); UROBILINOGEN,URINE 0.2 E.U/dL (0.2-1.0)
[2024-04-15 21:35] LABS: UA COLLECTION TYPE CLN CATCH MIDSTREAM; URINE HCG NEGATIVE (NEG)
[2024-04-15 21:36] LABS: BASOPHILS % (AUTO) 0.2 % (0-1); EOSINOPHILS # (AUTO) 0.2 X10'3 (0-0.9); EOSINOPHILS % (AUTO) 1.9 % (0-6); HEMATOCRIT 38.5 % (35.0-45.0); HEMOGLOBIN 12.1 g/dl (12.0-16.0); LYMPHOCYTES # (AUTO) 2.4 X10'3 (1.1-4.8); LYMPHOCYTES % (AUTO) 19.9 % (21-51); MEAN CORPUSCULAR HEMOGLOBIN 23.9 PG (27.0-31.0); MEAN CORPUSCULAR HGB CONC 31.4 g/dL (33.0-36.5); MEAN CORPUSCULAR VOLUME 76.1 FL (78-98); MEAN PLATELET VOLUME 6.9 FL (7.4-10.4); MONOCYTES # (AUTO) 0.9 X10'3 (0-0.9); MONOCYTES % (AUTO) 7.2 % (2-12); NEUTROPHILS # (AUTO) 8.6 X10'3 (1.8-7.7); NEUTROPHILS % (AUTO) 70.8 % (42-75); PLATELET COUNT 403 X10'3 (140-440); RED BLOOD COUNT 5.06 X10'6 (4.20-5.60); RED CELL DISTRIBUTION WIDTH 18.8 % (11.5-14.5); WHITE BLOOD COUNT 12.1 X10'3 (4.5-11.0)
[2024-04-15 21:39] LABS: BACTERIA,URINE FEW /HPF (Neg); MUCUS STRANDS NONE SEEN /LPF (Neg); SQUAMOUS EPITHELIAL CELL,UR FEW /LPF (FEW); TRANSITIONAL EPI CELLS,URINE FEW /HPF; WBC,URINE 0-4 /HPF (0-4)
[2024-04-15 21:45] LABS: ALANINE AMINOTRANSFERASE 27 U/L (12-78); ALBUMIN 3.1 G/DL (3.4-5.0); ALBUMIN/GLOBULIN RATIO 0.8 (1.1-1.5); ALKALINE PHOSPHATASE 36 IU/L (46-116); ANION GAP 6 (8-16); ASPARTATE AMINO TRANSFERASE 16 U/L (10-37); BILIRUBIN,TOTAL 0.3 MG/DL (0.1-1.0); BLOOD UREA NITROGEN 13 MG/DL (7-18); BUN/CREATININE RATIO 16.7 (10.0-20.0); CALCIUM 8.6 MG/DL (8.5-10.1); CHLORIDE 102 MMOL/L (99-107); CREATININE 0.78 MG/DL (0.40-0.90); GLUCOSE 105 MG/DL (70-104); LIPASE 32 U/L (16-77); POTASSIUM 4.1 MMOL/L (3.5-5.1); SODIUM 140 MMOL/L (135-145); TOTAL CARBON DIOXIDE 32.4 MMOL/L (24-32); eCRCL 74 ML/MIN; eGFR 83 ML/MIN
[2024-04-15] MEDS: normal saline 1000ml 1,000 ML IV ONE (21:46)
[2024-04-15 22:05] LABS: PRO BRAIN NATRIURETIC PEPTIDE 53 PG/ML (0-125)
[2024-04-15] MEDS: proCHLORperazine 10 MG/2 ml inj IV ONE (22:08)
[2024-04-15 22:30] LABS: ANISOCYTOSIS 2+; MICROCYTOSIS 1+; PLATELET ESTIMATE NORMAL; POLYCHROMASIA FEW; STOMATOCYTES FEW
[2024-04-16] MEDS: ipratropium/albuterol 3ml nebule NEB ONE (00:23)
[2024-04-16 00:29] VITALS: PULSE 77; RESP 18; O2SAT 98
[2024-04-16 00:37] VITALS: PULSE 88; RESP 16; O2SAT 95
[2024-04-16 01:16] VITALS: BP 126/76; PULSE 91; RESP 18; TEMP 98.6; O2SAT 91
== END 2024-04-16 01:20 | disposition home or self-care (01) ==
LOC: ER 20:23
DX: R10.84 Generalized abdominal pain (principal); Z20.822 Contact with and (suspected) exposure to COVID-19; R19.7 Diarrhea, unspecified; R11.2 Nausea with vomiting, unspecified; G43.909 Migraine, unspecified, not intractable, without status migrainosus; E78.00 Pure hypercholesterolemia, unspecified; J44.9 Chronic obstructive pulmonary disease, unspecified; K21.9 Gastro-esophageal reflux disease without esophagitis; E11.9 Type 2 diabetes mellitus without complications; Z88.6 Allergy status to analgesic agent; Z88.8 Allergy status to other drugs, medicaments and biological substances; Z79.899 Other long term (current) drug therapy; Z90.49 Acquired absence of other specified parts of digestive tract
CPT/HCPCS: 36415; 71045; 74176; 80053; 81001; 81025; 83690; 83880; 84145; 84484; 85008; 85025; 87502; 87503; 87811; 94640; 96361; 96374; 96375; 99285; J0780; J2405; J7030; Z7610; 94760

== ENCOUNTER 2024-04-29 13:28 | Emergency (ER) | payer MEDICARE, MEDICAID ==
[~2024-04-29] VITALS: Ht 154.9 cm; Wt 145.7 kg
[2024-04-29 14:45] LABS: BASOPHILS % (AUTO) 0.4 % (0-1); EOSINOPHILS # (AUTO) 0.2 X10'3 (0-0.9); HEMATOCRIT 45.3 % (35.0-45.0); HEMOGLOBIN 14.1 g/dl (12.0-16.0); LYMPHOCYTES # (AUTO) 2.3 X10'3 (1.1-4.8); LYMPHOCYTES % (AUTO) 19.5 % (21-51); MEAN CORPUSCULAR HEMOGLOBIN 23.9 PG (27.0-31.0); MEAN CORPUSCULAR HGB CONC 31.2 g/dL (33.0-36.5); MEAN CORPUSCULAR VOLUME 76.7 FL (78-98); MEAN PLATELET VOLUME 7.3 FL (7.4-10.4); MONOCYTES # (AUTO) 0.8 X10'3 (0-0.9); MONOCYTES % (AUTO) 7.3 % (2-12); NEUTROPHILS # (AUTO) 8.2 X10'3 (1.8-7.7); NEUTROPHILS % (AUTO) 70.8 % (42-75); PLATELET COUNT 448 X10'3 (140-440); RED CELL DISTRIBUTION WIDTH 19.2 % (11.5-14.5); WHITE BLOOD COUNT 11.6 X10'3 (4.5-11.0)
[2024-04-29 14:52] LABS: ALANINE AMINOTRANSFERASE 33 U/L (12-78); ALBUMIN 3.8 G/DL (3.4-5.0); ALBUMIN/GLOBULIN RATIO 0.9 (1.1-1.5); ALKALINE PHOSPHATASE 41 IU/L (46-116); AMYLASE 18 U/L (25-115); ANION GAP 6 (8-16); ASPARTATE AMINO TRANSFERASE 12 U/L (10-37); BILIRUBIN,TOTAL 0.5 MG/DL (0.1-1.0); BLOOD UREA NITROGEN 8 MG/DL (7-18); BUN/CREATININE RATIO 11.6 (10.0-20.0); CALCIUM 9.4 MG/DL (8.5-10.1); CHLORIDE 102 MMOL/L (99-107); CREATININE 0.69 MG/DL (0.40-0.90); GLUCOSE 93 MG/DL (70-104); LIPASE 22 U/L (16-77); SODIUM 138 MMOL/L (135-145); TOTAL CARBON DIOXIDE 30.1 MMOL/L (24-32); TOTAL PROTEIN 8.2 G/DL (6.4-8.2); eCRCL 83 ML/MIN; eGFR > 90 ML/MIN
[2024-04-29 15:09] LABS: URINE HCG NEGATIVE (NEG)
[2024-04-29 15:18] LABS: ANISOCYTOSIS 2+; MICROCYTOSIS 1+; PLATELET ESTIMATE INCREASED
[2024-04-29 15:18] LABS: BILIRUBIN,URINE NEGATIVE (Neg); CLARITY,URINE CLEAR (Clear); COLOR,URINE YELLOW (Yellow); GLUCOSE, URINE NEGATIVE (Neg); KETONES,URINE NEGATIVE (Neg); LEUKOCYTE ESTERASE ,URINE NEGATIVE (Neg); NITRITES, URINE NEGATIVE (Neg); OCCULT BLOOD,URINE TRACE-INTACT (Neg); PROTEIN,URINE NEGATIVE (Neg); UROBILINOGEN,URINE 0.2 E.U/dL (0.2-1.0)
[2024-04-29 15:19] LABS: UA COLLECTION TYPE CLN CATCH MIDSTREAM
[2024-04-29 15:23] LABS: BACTERIA,URINE FEW /HPF (Neg); MUCUS STRANDS MANY /LPF (Neg); SQUAMOUS EPITHELIAL CELL,UR MANY /LPF (FEW); WBC,URINE 0-4 /HPF (0-4)
[2024-04-29] MEDS: magnesium citrate 296ml oral solution PO ONE (16:00)
[2024-04-29 16:06] VITALS: BP 121/90; PULSE 71; RESP 16; TEMP 98.6; O2SAT 98
== END 2024-04-29 16:09 | disposition home or self-care (01) ==
LOC: ER 13:29
DX: K59.00 Constipation, unspecified (principal); R10.9 Unspecified abdominal pain; G43.909 Migraine, unspecified, not intractable, without status migrainosus; J45.909 Unspecified asthma, uncomplicated; J44.9 Chronic obstructive pulmonary disease, unspecified; K21.9 Gastro-esophageal reflux disease without esophagitis; E11.9 Type 2 diabetes mellitus without complications; F31.9 Bipolar disorder, unspecified; Z88.6 Allergy status to analgesic agent; Z79.899 Other long term (current) drug therapy; Z79.84 Long term (current) use of oral hypoglycemic drugs; Z90.49 Acquired absence of other specified parts of digestive tract
CPT/HCPCS: 74018; 80053; 81001; 81025; 82150; 83690; 85008; 85025; 99284

== ENCOUNTER 2024-05-08 22:23 | Emergency (ER) | payer MEDICARE, MEDICAID ==
[~2024-05-08] VITALS: Ht 154.9 cm; Wt 150.2 kg
[2024-05-08] MEDS ORDERED: CARB15DR91 RIGHT EAR (23:10)
[2024-05-08] MEDS ORDERED: AMOX-117 PO (23:10)
[2024-05-08 23:51] VITALS: BP 135/90; PULSE 87; RESP 22; TEMP 98; O2SAT 95
[2024-05-09] MEDS ORDERED: BACL10TA2 PO (15:39)
[2024-05-09] MEDS ORDERED: NAPR-56 PO (15:39)
== END 2024-05-08 23:53 | disposition home or self-care (01) ==
LOC: ER 22:24
DX: H61.22 Impacted cerumen, left ear (principal); H66.92 Otitis media, unspecified, left ear; G43.909 Migraine, unspecified, not intractable, without status migrainosus; E78.00 Pure hypercholesterolemia, unspecified; J45.909 Unspecified asthma, uncomplicated; J44.9 Chronic obstructive pulmonary disease, unspecified; K21.9 Gastro-esophageal reflux disease without esophagitis; E11.9 Type 2 diabetes mellitus without complications; G89.29 Other chronic pain; M54.9 Dorsalgia, unspecified; F41.9 Anxiety disorder, unspecified; G47.30 Sleep apnea, unspecified; F32.A Depression, unspecified; Z90.49 Acquired absence of other specified parts of digestive tract; Z98.890 Other specified postprocedural states; Z72.89 Other problems related to lifestyle; Z88.8 Allergy status to other drugs, medicaments and biological substances; Z79.899 Other long term (current) drug therapy; Z79.84 Long term (current) use of oral hypoglycemic drugs
CPT/HCPCS: 99283

== ENCOUNTER 2024-05-09 13:20 | Emergency (ER) | payer MEDICARE, MEDICAID ==
[~2024-05-09] VITALS: Ht 154.9 cm; Wt 149.9 kg
[~2024-05-09 13:20] MED LIST changes: +AMOX-117 PO; +CARB15DR91 RIGHT EAR
[2024-05-09] MEDS ORDERED: BACL10TA2 PO (15:39)
[2024-05-09] MEDS ORDERED: NAPR-56 PO (15:39)
[2024-05-09] MEDS: cyclobenzaprine 10mg tablet PO ONE (15:42)
[2024-05-09] MEDS: ondansetron 4mg rapidly disintigrating tab PO ONE (15:42)
[2024-05-09] MEDS: ketorolac trometh. 30mg/ml inj. IM ONE (15:43)
[2024-05-09] MEDS: LIDOcaine 5% patch TP SCH (15:46)
[2024-05-09 15:55] VITALS: BP 136/97; PULSE 70; RESP 16; TEMP 98.6; O2SAT 98
== END 2024-05-09 15:56 | disposition home or self-care (01) ==
LOC: ER 13:21
DX: G43.909 Migraine, unspecified, not intractable, without status migrainosus (principal); M62.838 Other muscle spasm; E78.00 Pure hypercholesterolemia, unspecified; J45.909 Unspecified asthma, uncomplicated; J44.9 Chronic obstructive pulmonary disease, unspecified; K21.9 Gastro-esophageal reflux disease without esophagitis; E11.9 Type 2 diabetes mellitus without complications; F41.9 Anxiety disorder, unspecified; F32.A Depression, unspecified; Z88.6 Allergy status to analgesic agent; Z91.09 Other allergy status, other than to drugs and biological substances; Z79.899 Other long term (current) drug therapy; Z79.2 Long term (current) use of antibiotics; Z90.49 Acquired absence of other specified parts of digestive tract
CPT/HCPCS: 96372; 99284; J1885

== ENCOUNTER 2024-05-20 10:32 | Emergency (ER) | payer MEDICARE, MEDICAID ==
[~2024-05-20] VITALS: Ht 160 cm; Wt 146.8 kg
[~2024-05-20 10:32] MED LIST changes: -AMOX-117 PO; +BACL10TA2 PO; +NAPR-56 PO
[2024-05-20 11:42] LABS: URINE HCG NEGATIVE (NEG)
[2024-05-20] MEDS ORDERED: SUMA100T16 (11:45)
[2024-05-20] MEDS ORDERED: ESCI5TAB17 PO (11:45)
[2024-05-20] MEDS ORDERED: ONDA-243 PO (11:45)
[2024-05-20] MEDS ORDERED: FLUC200T93 (11:45)
[2024-05-20 11:54] LABS: URINE AMPHETAMINE SCREEN NEGATIVE (Neg); URINE BARBITUATE SCREEN NEGATIVE (Neg); URINE BENZODIAZEPINES SCREEN NEGATIVE (Neg); URINE CANNABINOID SCREEN NEGATIVE (Neg); URINE COCAINE SCREEN NEGATIVE (Neg); URINE METHADONE SCREEN NEGATIVE (Neg); URINE OPIATE SCREEN NEGATIVE (Neg); URINE PHENCYCLIDINE SCREEN NEGATIVE (Neg)
[2024-05-20 12:18] LABS: BASOPHILS % (AUTO) 0.2 % (0-1); EOSINOPHILS # (AUTO) 0.2 X10'3 (0-0.9); EOSINOPHILS % (AUTO) 1.2 % (0-6); HEMATOCRIT 40.5 % (35.0-45.0); LYMPHOCYTES # (AUTO) 1.9 X10'3 (1.1-4.8); LYMPHOCYTES % (AUTO) 14.3 % (21-51); MEAN CORPUSCULAR HEMOGLOBIN 24.9 PG (27.0-31.0); MEAN CORPUSCULAR HGB CONC 32.1 g/dL (33.0-36.5); MEAN CORPUSCULAR VOLUME 77.6 FL (78-98); MEAN PLATELET VOLUME 7.4 FL (7.4-10.4); MONOCYTES # (AUTO) 0.8 X10'3 (0-0.9); MONOCYTES % (AUTO) 6.1 % (2-12); NEUTROPHILS # (AUTO) 10.3 X10'3 (1.8-7.7); NEUTROPHILS % (AUTO) 78.2 % (42-75); PLATELET COUNT 413 X10'3 (140-440); RED BLOOD COUNT 5.22 X10'6 (4.20-5.60); WHITE BLOOD COUNT 13.2 X10'3 (4.5-11.0)
[2024-05-20] MEDS ORDERED: albuterol 2.5 MG/3 ML nebule NEB PRN (12:25)
[2024-05-20 12:33] LABS: ALBUMIN 3.3 G/DL (3.4-5.0); ANION GAP 5 (8-16); BLOOD UREA NITROGEN 9 MG/DL (7-18); BUN/CREATININE RATIO 12.9 (10.0-20.0); CHLORIDE 100 MMOL/L (99-107); ETHANOL < 10 MG/DL (<10); GLUCOSE 113 MG/DL (70-104); POTASSIUM 3.7 MMOL/L (3.5-5.1); SODIUM 140 MMOL/L (135-145); TOTAL CARBON DIOXIDE 35.5 MMOL/L (24-32); eCRCL 90 ML/MIN; eGFR > 90 ML/MIN
[2024-05-20 13:02] LABS: MICROCYTOSIS 1+; PLATELET ESTIMATE NORMAL
[2024-05-20 13:03] LABS: ANISOCYTOSIS 2+
[2024-05-20] MEDS: gabapentin 100mg capsule PO SCH (13:14)
[2024-05-20] MEDS: metoclopramide 10mg tablet PO SCH (13:14)
[2024-05-20] MEDS: baclofen 10mg tablet PO SCH (16:00)
[2024-05-20 18:16] VITALS: BP 106/71; PULSE 87; RESP 20; TEMP 98.2; O2SAT 95
[2024-05-20] MEDS ORDERED: carbamide peroxide 15ml bottle RIGHT EAR SCH (20:00)
[2024-05-20] MEDS ORDERED: docusate sod 100mg capsule PO SCH (20:00)
[2024-05-20] MEDS ORDERED: quetiapine 100mg tablet PO SCH (21:00)
[2024-05-21] MEDS ORDERED: lamoTRIgine 100mg tablet PO SCH (08:00)
[2024-05-21] MEDS ORDERED: FENOFIBRATE 130 MG PO SCH (08:00)
[2024-05-21] MEDS ORDERED: atorvastatin 20mg tablet PO SCH (08:00)
[2024-05-21] MEDS ORDERED: pantoprazole 40mg Tablet.DR PO SCH (08:00)
[2024-05-21] MEDS ORDERED: ESCITALOPRAM 10 mg tablet 10 MG TABLET PO SCH (08:00)
[2024-05-26] MEDS ORDERED: OZEMPIC 0.25 MG SQ SCH (08:00)
== END 2024-05-20 20:45 | disposition home or self-care (01) ==
LOC: ER 10:32
DX: R40.4 Transient alteration of awareness (principal); Z20.822 Contact with and (suspected) exposure to COVID-19; G43.909 Migraine, unspecified, not intractable, without status migrainosus; E78.00 Pure hypercholesterolemia, unspecified; J44.9 Chronic obstructive pulmonary disease, unspecified; K21.9 Gastro-esophageal reflux disease without esophagitis; E11.9 Type 2 diabetes mellitus without complications; Z88.6 Allergy status to analgesic agent; Z88.8 Allergy status to other drugs, medicaments and biological substances; Z79.899 Other long term (current) drug therapy; Z79.1 Long term (current) use of non-steroidal anti-inflammatories (NSAID); Z79.84 Long term (current) use of oral hypoglycemic drugs; Z90.49 Acquired absence of other specified parts of digestive tract
CPT/HCPCS: 36415; 80048; 80305; 81025; 85008; 85025; 87811; 99284; A6449; G0480; 80320

== ENCOUNTER 2024-05-31 19:35 | Emergency (ER) | payer MEDICARE, MEDICAID ==
[~2024-05-31] VITALS: Ht 154.9 cm; Wt 188.0 kg
[~2024-05-31 19:35] MED LIST changes: -CYCL-1 PO; +ESCI5TAB17 PO; +FLUC200T93; +ONDA-243 PO; +SUMA100T16
[2024-05-31 20:10] LABS: BASOPHILS % (AUTO) 0.3 % (0-1); EOSINOPHILS # (AUTO) 0.2 X10'3 (0-0.9); EOSINOPHILS % (AUTO) 1.3 % (0-6); HEMATOCRIT 41.3 % (35.0-45.0); HEMOGLOBIN 13.1 g/dl (12.0-16.0); LYMPHOCYTES # (AUTO) 2.1 X10'3 (1.1-4.8); LYMPHOCYTES % (AUTO) 13.9 % (21-51); MEAN CORPUSCULAR HEMOGLOBIN 24.7 PG (27.0-31.0); MEAN CORPUSCULAR HGB CONC 31.6 g/dL (33.0-36.5); MEAN PLATELET VOLUME 7.1 FL (7.4-10.4); MONOCYTES % (AUTO) 6.7 % (2-12); NEUTROPHILS # (AUTO) 11.8 X10'3 (1.8-7.7); NEUTROPHILS % (AUTO) 77.8 % (42-75); PLATELET COUNT 426 X10'3 (140-440); RED CELL DISTRIBUTION WIDTH 18.5 % (11.5-14.5); WHITE BLOOD COUNT 15.1 X10'3 (4.5-11.0)
[2024-05-31 20:30] LABS: ALBUMIN 3.5 G/DL (3.4-5.0); ANION GAP 6 (8-16); BLOOD UREA NITROGEN 12 MG/DL (7-18); BUN/CREATININE RATIO 16.2 (10.0-20.0); CALCIUM 9.8 MG/DL (8.5-10.1); CHLORIDE 100 MMOL/L (99-107); CREATININE 0.74 MG/DL (0.40-0.90); GLUCOSE 103 MG/DL (70-104); POTASSIUM 3.8 MMOL/L (3.5-5.1); PRO BRAIN NATRIURETIC PEPTIDE 35 PG/ML (0-125); SODIUM 140 MMOL/L (135-145); TOTAL CARBON DIOXIDE 33.6 MMOL/L (24-32); eCRCL 78 ML/MIN; eGFR 88 ML/MIN
[2024-05-31] MEDS: ketorolac trometh 30MG/ML vial 30 MG/ML VIAL IM ONE (20:45)
[2024-05-31 21:10] LABS: BILIRUBIN,URINE NEGATIVE (Neg); CLARITY,URINE SLIGHTLY CLOUDY (Clear); COLOR,URINE YELLOW (Yellow); GLUCOSE, URINE NEGATIVE (Neg); KETONES,URINE NEGATIVE (Neg); LEUKOCYTE ESTERASE ,URINE TRACE (Neg); NITRITES, URINE NEGATIVE (Neg); OCCULT BLOOD,URINE TRACE-INTACT (Neg); PH,URINE 6.5 (4.8-8.0); PROTEIN,URINE NEGATIVE (Neg); UROBILINOGEN,URINE 0.2 E.U/dL (0.2-1.0)
[2024-05-31 21:11] LABS: URINE HCG NEGATIVE (NEG)
[2024-05-31 21:14] LABS: UA COLLECTION TYPE CLN CATCH MIDSTREAM
[2024-05-31 21:21] LABS: SQUAMOUS EPITHELIAL CELL,UR MANY /LPF (FEW)
[2024-05-31 21:23] LABS: BACTERIA,URINE FEW /HPF (Neg); WBC,URINE 0-4 /HPF (0-4)
[2024-05-31] MEDS ORDERED: CEPH500C3 PO (22:26)
[2024-05-31] MEDS: cephalexin 250mg capsule PO ONE (22:31)
[2024-05-31 22:32] VITALS: TEMP 99.1
[2024-05-31 22:54] VITALS: BP 126/86; PULSE 73; RESP 20; O2SAT 94
== END 2024-05-31 22:56 | disposition home or self-care (01) ==
LOC: ER 19:36
DX: R07.2 Precordial pain (principal); N39.0 Urinary tract infection, site not specified; G43.909 Migraine, unspecified, not intractable, without status migrainosus; E78.00 Pure hypercholesterolemia, unspecified; J45.909 Unspecified asthma, uncomplicated; J44.9 Chronic obstructive pulmonary disease, unspecified; K21.9 Gastro-esophageal reflux disease without esophagitis; F41.9 Anxiety disorder, unspecified; F32.A Depression, unspecified; G89.29 Other chronic pain; M54.9 Dorsalgia, unspecified; G47.39 Other sleep apnea; Z90.49 Acquired absence of other specified parts of digestive tract; Z98.890 Other specified postprocedural states; Z88.8 Allergy status to other drugs, medicaments and biological substances; Z79.899 Other long term (current) drug therapy; Z79.1 Long term (current) use of non-steroidal anti-inflammatories (NSAID); Z79.84 Long term (current) use of oral hypoglycemic drugs; Z72.89 Other problems related to lifestyle
CPT/HCPCS: 36415; 71045; 80048; 81001; 81025; 83880; 84484; 85025; 87077; 87088; 87186; 93005; 96372; 99285; J1885

== ENCOUNTER 2024-06-15 21:16 | Emergency (ER) | payer MEDICARE, MEDICAID ==
[~2024-06-15] VITALS: Ht 154.9 cm; Wt 149.0 kg
[~2024-06-15 21:16] MED LIST changes: -NAPR-56 PO
[2024-06-15 21:23] VITALS: TEMP 97.5
[2024-06-15 21:57] LABS: BILIRUBIN,URINE NEGATIVE (Neg); CLARITY,URINE SLIGHTLY CLOUDY (Clear); COLOR,URINE STRAW (Yellow); GLUCOSE, URINE NEGATIVE (Neg); KETONES,URINE NEGATIVE (Neg); LEUKOCYTE ESTERASE ,URINE NEGATIVE (Neg); NITRITES, URINE NEGATIVE (Neg); OCCULT BLOOD,URINE NEGATIVE (Neg); PROTEIN,URINE NEGATIVE (Neg); UROBILINOGEN,URINE 0.2 E.U/dL (0.2-1.0)
[2024-06-15 21:58] LABS: URINE HCG NEGATIVE (NEG)
[2024-06-15 21:58] LABS: HEMOGLOBIN 13.4 g/dl (12.0-16.0); MEAN CORPUSCULAR VOLUME 78.4 FL (78-98)
[2024-06-15 21:59] LABS: BASOPHILS % (AUTO) 0.4 % (0-1); EOSINOPHILS # (AUTO) 0.2 X10'3 (0-0.9); EOSINOPHILS % (AUTO) 1.8 % (0-6); LYMPHOCYTES # (AUTO) 2.6 X10'3 (1.1-4.8); LYMPHOCYTES % (AUTO) 20.1 % (21-51); MEAN CORPUSCULAR HGB CONC 31.8 g/dL (33.0-36.5); MONOCYTES # (AUTO) 1.1 X10'3 (0-0.9); MONOCYTES % (AUTO) 8.9 % (2-12); NEUTROPHILS # (AUTO) 8.9 X10'3 (1.8-7.7); NEUTROPHILS % (AUTO) 68.8 % (42-75); PLATELET COUNT 439 X10'3 (140-440); RED BLOOD COUNT 5.36 X10'6 (4.20-5.60); RED CELL DISTRIBUTION WIDTH 17.7 % (11.5-14.5)
[2024-06-15 22:06] LABS: ALANINE AMINOTRANSFERASE 21 U/L (12-78); ALBUMIN 3.6 G/DL (3.4-5.0); ALBUMIN/GLOBULIN RATIO 0.8 (1.1-1.5); ALKALINE PHOSPHATASE 42 IU/L (46-116); ANION GAP 6 (8-16); ASPARTATE AMINO TRANSFERASE 10 U/L (10-37); BILIRUBIN,TOTAL 0.3 MG/DL (0.1-1.0); BLOOD UREA NITROGEN 11 MG/DL (7-18); BUN/CREATININE RATIO 16.9 (10.0-20.0); CALCIUM 9.6 MG/DL (8.5-10.1); CHLORIDE 103 MMOL/L (99-107); CREATININE 0.65 MG/DL (0.40-0.90); GLUCOSE 89 MG/DL (70-104); POTASSIUM 4.1 MMOL/L (3.5-5.1); SODIUM 143 MMOL/L (135-145); TOTAL CARBON DIOXIDE 34.5 MMOL/L (24-32); eCRCL 89 ML/MIN; eGFR > 90 ML/MIN
[2024-06-15 22:27] LABS: UA COLLECTION TYPE NON-SPECIFIED
[2024-06-15 22:42] LABS: WBC,URINE 0-4 /HPF (0-4)
[2024-06-15 22:43] LABS: BACTERIA,URINE FEW /HPF (Neg); RBC,URINE 0-2 /HPF (0-2); SQUAMOUS EPITHELIAL CELL,UR FEW /LPF (FEW)
[2024-06-15] MEDS ORDERED: METH-798 PO (23:32)
[2024-06-15 23:34] VITALS: BP 126/87; PULSE 80; RESP 18; O2SAT 96
== END 2024-06-15 23:38 | disposition home or self-care (01) ==
LOC: ER 21:17
DX: R30.0 Dysuria (principal); M62.830 Muscle spasm of back; B97.4 Respiratory syncytial virus as the cause of diseases classified elsewhere; R10.9 Unspecified abdominal pain; G43.909 Migraine, unspecified, not intractable, without status migrainosus; E78.00 Pure hypercholesterolemia, unspecified; J45.909 Unspecified asthma, uncomplicated; J44.9 Chronic obstructive pulmonary disease, unspecified; K21.9 Gastro-esophageal reflux disease without esophagitis; E11.9 Type 2 diabetes mellitus without complications; F32.A Depression, unspecified; Z88.6 Allergy status to analgesic agent; Z79.899 Other long term (current) drug therapy; Z79.1 Long term (current) use of non-steroidal anti-inflammatories (NSAID); Z79.84 Long term (current) use of oral hypoglycemic drugs; Z90.49 Acquired absence of other specified parts of digestive tract
CPT/HCPCS: 80053; 81001; 81025; 85025; 99283

== ENCOUNTER 2024-06-22 12:53 | Emergency (ER) | payer MEDICARE, MEDICAID ==
[~2024-06-22] VITALS: Ht 154.9 cm; Wt 149.6 kg
[~2024-06-22 12:53] MED LIST changes: +METH-798 PO
[2024-06-22] MEDS: charcoal, activated 50 GM/240 ML bottle PO ONE (13:10)
[2024-06-22 13:29] LABS: BASOPHILS # (AUTO) 0.1 X10'3 (0-0.2); BASOPHILS % (AUTO) 0.4 % (0-1); EOSINOPHILS # (AUTO) 0.2 X10'3 (0-0.9); EOSINOPHILS % (AUTO) 1.6 % (0-6); HEMATOCRIT 41.9 % (35.0-45.0); HEMOGLOBIN 13.3 g/dl (12.0-16.0); LYMPHOCYTES % (AUTO) 15.2 % (21-51); MEAN CORPUSCULAR HGB CONC 31.9 g/dL (33.0-36.5); MEAN CORPUSCULAR VOLUME 78.6 FL (78-98); MONOCYTES # (AUTO) 0.7 X10'3 (0-0.9); MONOCYTES % (AUTO) 5.5 % (2-12); NEUTROPHILS # (AUTO) 10.4 X10'3 (1.8-7.7); NEUTROPHILS % (AUTO) 77.3 % (42-75); PLATELET COUNT 424 X10'3 (140-440); RED BLOOD COUNT 5.33 X10'6 (4.20-5.60); RED CELL DISTRIBUTION WIDTH 17.1 % (11.5-14.5); WHITE BLOOD COUNT 13.5 X10'3 (4.5-11.0)
[2024-06-22 13:34] LABS: ALANINE AMINOTRANSFERASE 27 U/L (12-78); ALBUMIN 3.5 G/DL (3.4-5.0); ALBUMIN/GLOBULIN RATIO 0.8 (1.1-1.5); ALKALINE PHOSPHATASE 48 IU/L (46-116); ANION GAP 7 (8-16); ASPARTATE AMINO TRANSFERASE 17 U/L (10-37); BILIRUBIN,DIRECT 0.1 MG/DL (0-0.3); BILIRUBIN,TOTAL 0.5 MG/DL (0.1-1.0); BLOOD UREA NITROGEN 9 MG/DL (7-18); CALCIUM 9.6 MG/DL (8.5-10.1); CHLORIDE 100 MMOL/L (99-107); CREATININE 0.75 MG/DL (0.40-0.90); GLUCOSE 156 MG/DL (70-104); POTASSIUM 3.7 MMOL/L (3.5-5.1); SODIUM 139 MMOL/L (135-145); TOTAL CARBON DIOXIDE 31.8 MMOL/L (24-32); TOTAL PROTEIN 7.8 G/DL (6.4-8.2); eCRCL 77 ML/MIN; eGFR 86 ML/MIN
[2024-06-22 13:35] LABS: ACETAMINOPHEN < 2.0 UG/ML (10-30); ETHANOL < 10 MG/DL (<10)
[2024-06-22 14:40] LABS: URINE HCG NEGATIVE (NEG)
[2024-06-22 14:48] LABS: URINE AMPHETAMINE SCREEN NEGATIVE (Neg); URINE BARBITUATE SCREEN NEGATIVE (Neg); URINE BENZODIAZEPINES SCREEN NEGATIVE (Neg); URINE CANNABINOID SCREEN NEGATIVE (Neg); URINE COCAINE SCREEN NEGATIVE (Neg); URINE METHADONE SCREEN NEGATIVE (Neg); URINE OPIATE SCREEN NEGATIVE (Neg); URINE PHENCYCLIDINE SCREEN NEGATIVE (Neg)
[2024-06-22] MEDS: LORazepam 0.5 MG tablet PO PRN (22:42)
[2024-06-23 05:24] VITALS: BP 136/96; PULSE 66; TEMP 96.3; O2SAT 94
[2024-06-23 08:20] VITALS: RESP 16
[2024-06-23] MEDS ORDERED: FENO134C21 PO (08:57)
[2024-06-23] MEDS ORDERED: ATOG30TA PO (08:57)
[2024-06-23] MEDS ORDERED: ESCI5TAB PO (10:15)
[2024-06-23] MEDS ORDERED: METH-798 PO (10:24)
== END 2024-06-23 10:50 | disposition home or self-care (01) ==
LOC: ER 12:53
DX: T42.8X2A Poisoning by antiparkinsonism drugs and other central muscle-tone depressants, intentional self-harm, initial encounter (principal); T14.91XA Suicide attempt, initial encounter; J44.9 Chronic obstructive pulmonary disease, unspecified; K21.9 Gastro-esophageal reflux disease without esophagitis; E11.9 Type 2 diabetes mellitus without complications; F20.9 Schizophrenia, unspecified; Z91.011 Allergy to milk products; Z88.6 Allergy status to analgesic agent; Z20.822 Contact with and (suspected) exposure to COVID-19; Y92.89 Other specified places as the place of occurrence of the external cause
CPT/HCPCS: 36415; 80048; 80076; 80305; 80329; 81025; 85025; 87811; 93005; 99285; G0480; 80320